=== PATIENT | female | born 1970 | race Caucasian/White ===

== ENCOUNTER 2016-10-01 14:06 | Inpatient (IN) | payer OTHER, MEDICAID ==
[2016-10-01] MEDS ORDERED: HALOPERIDOL LACT 5 MG/ML INJ IM ONE (14:13)
[2016-10-01 15:11] LABS: % IMMATURE GRANULYOCYTES 0.3 % (0.0-1.1); ABSOLUTE IMMATURE GRANULOCYTES 0.03 10^3/uL (0.00-0.10); ADD DIFF? NO; ADD MORPH? NO; ADD SCAN? NO; ATYPICAL LYMPHOCYTE FLAG 0 (0-99); FRAGMENT RBC FLAG 0 (0-99); HEMOGLOBIN 16.7 g/dL (12.6-16.3); LEFT SHIFT FLG 0 (0-99); LIPEMIA HEMOLYSIS FLAG 90 (0-99); MEAN CELL HEMOGLOBIN 31.5 pg (27.9-34.1); MEAN CELL HEMOGLOBIN CONCENTR. 34.8 g/dL (32.4-36.7); MEAN CELL VOLUME 90.6 fL (81.5-99.8); MEAN PLATELET VOLUME 10.1 fL (8.7-11.7); PLATELET CLUMPS FLAG 0 (0-99); PLATELET COUNT 243 10^3/uL (150-400); RED CELL DISTRIBUTION WIDTH 13.7 % (11.5-15.2)
[2016-10-01 15:41] LABS: ANION GAP 13 mEq/L (8-16); CALCIUM 9.8 mg/dL (8.5-10.4); CARBON DIOXIDE 19 mEq/l (22-31); CHLORIDE 104 mEq/L (97-110); CREATININE 0.7 mg/dL (0.6-1.0); ETHANOL SERUM < 10 mg/dL (0-10); GLOMERULAR FILTRATION RATE > 60; GLUCOSE 189 mg/dL (70-100); POTASSIUM 4.2 mEq/L (3.5-5.2); SODIUM 136 mEq/L (134-144)
--- NOTE | 2016-10-01 15:50 | EDPHY ---
Mental Health General Previous Psychiatric History: previous inpatient psychiatric admission, bipolar Smoking Status: Heavy smoker Time Patient Placed on M1 Hold: 13:32 Time of Transfer of Care: 18:[address] To [address]:: Yoandy Course: patient required additional meds for sedation (meds) Narrative: CHIEF COMPLAINT: M1 hold HISTORY OF PRESENT ILLNESS: 46-year-old female with history of bipolar disorder presents to the crisis Center and placed on an M1 hold brought to the emergency department. Patient has rapid tangential speech, she is rambling, reports auditory hallucinations. Patient is suspicious, angry and combative upon arrival to the emergency department. Patient denies drug or alcohol use, she is unsure if she has been taking her medications. Patient reports auditory hallucinations, she denies visual hallucinations, denies suicidal thoughts, when asked if the patient is homicidal she sat up in bed fast and said "did he say I was supposed to be?" REVIEW OF SYSTEMS: A comprehensive 10 point review of systems is otherwise negative aside from elements mentioned in the history of present illness. Physical Exam Gen: Awake, agitated HEENT: PERRL, moist mucous membranes NECK: no meningismus CV: regular rate and regular rhythm PULM: CTAB, no wheezes ABDOMEN: Obese, soft, non tender to palpation, BS present BACK: No CVA tenderness NEURO: Moves all extremities, follows commands, no facial asymmetry EXTREMITIES: normal appearing SKIN: No rash on exposed skin PSYCH: Nonsensical rapid tangential speech, suspicious, reports auditory hallucinations, denies suicidal ideations (Salma Martinez) Medical Decision Makinpm- Report passed on to Dr. Pitt at the end of my shift pending patient providing urinalysis and mental health eval. (Salma Martinez) 1800 care assumed by me from DARIEN Martinez pending mental health evaluation. 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 Patient is requiring admission. They will look for placement. [id number] patient signed out to Dr. Lazar pending placement. (Cody Pitt) 0657: No acute events overnight. Patient is pending placement. Patient signed over to Dr. Zavala at 7 AM. Patient here with gene. (Rickey Lazar) Patient has remained stable on my shift 11:45 a.m. patient has been accepted for admission at [address] [place] [address] (Darian Zavala) - Objective Vital Signs: Initial Vital Signs Temperature (C) 36.7 C 10/01/16 14:06 Heart Rate 99 10/01/16 14:06 Respiratory Rate 18 10/01/16 14:06 Blood Pressure 198/76 H 10/01/16 14:06 O2 Sat (%) 96 10/01/16 14:06 O2 Delivery Mode Room Air Allergies/Adverse Reactions: carbamazepine [From Tegretol] Allergy (Verified 10/01/16 14:16) Cephalosporins Allergy (Verified 10/01/16 14:16) clozapine [From Clozaril] Allergy (Verified 10/01/16 14:16) lamotrigine Allergy (Verified 10/01/16 14:16) oxcarbazepine [From Trileptal] Allergy (Verified 10/01/16 14:16) Penicillins Allergy (Verified 10/01/16 14:16) Sulfa (Sulfonamide Antibiotics) Allergy (Verified 10/01/16 14:16) Thiazides Allergy (Verified 10/01/16 14:16) Home Medications: Medication Instructions Recorded [place] Carbonate ER [Eskalith Cr 450 mg PO DAILY 06/17/16 450 mg (*)] Seroquel 50 mg (*) 10/01/16 Medications Given: Discontinued Medications Haloperidol Lactate (Haldol Injection) 5 mg IM EDNOW ONE Stop: 10/01/16 14:14 Last Admin: 10/01/16 14:26 Dose: 5 mg Lorazepam (Ativan) 1 mg PO EDNOW ONE Stop: 10/02/16 10:23 Last Admin: 10/02/16 10:32 Dose: 1 mg Nicotine (Nicoderm Cq) 14 mg TD EDNOW ONE Stop: 10/02/16 10:23 Last Admin: 10/02/16 11:02 Dose: 14 mg Olanzapine (Zyprexa Zydis) 5 mg PO EDNOW ONE Stop: 10/01/16 16:49 Last Admin: 10/01/16 16:54 Dose: 5 mg Olanzapine (Olanzapine) 5 mg PO ONCE ONE Stop: 10/01/16 19:53 Last Admin: 10/01/16 19:57 Dose: 5 mg Quetiapine Fumarate (Seroquel) 50 mg PO ONCE ONE Stop: 10/01/16 17:52 Last Admin: 10/01/16 19:52 Dose: 50 mg Laboratory Results: Laboratory Results 10/01/16 13:00 10/01/16 13:00 10/02/16 09:20 Urine Opiates Screen NEGATIVE (NEGATIVE) Urine Barbiturates NEGATIVE (NEGATIVE) Ur Phencyclidine Scrn NEGATIVE (NEGATIVE) Ur Amphetamine Screen NEGATIVE (NEGATIVE) U Benzodiazepines Scrn NEGATIVE (NEGATIVE) Urine Cocaine Screen NEGATIVE (NEGATIVE) U Marijuana (THC) Screen NEGATIVE (NEGATIVE) Departure - Departure Disposition: [facility] IP Clinical Impression: Acute psychosis Condition: Fair Referrals: Patient,NotPresent [Primary Care Provider] - As per Instructions
[2016-10-01 16:14] LABS: LITHIUM < 0.2 mEq/L (0.6-1.2)
[2016-10-01] MEDS ORDERED: OLANZapine DISINTEGR 5 MG TAB ONE ×2 (16:48→19:40)
[2016-10-01] MEDS ORDERED: OLANZapine DISINTEGR 5 MG TAB PO ONE (16:48)
[2016-10-01] MEDS ORDERED: QUEtiapine FUMARATE 50 MG TAB PO ONE (17:51)
[2016-10-01] MEDS ORDERED: LITHIUM CARBONATE ER 450 MG TAB PO ONE (18:04)
[2016-10-01] MEDS: LITHIUM CARBONATE ER 450 MG TAB PO SCH ×2 (18:07→18:39)
[2016-10-01] MEDS ORDERED: QUEtiapine FUMARATE 100 MG TAB ONE (19:40)
[2016-10-01] MEDS ORDERED: OLANZapine 5 MG TAB PO ONE (19:52)
[2016-10-02] MEDS: LITHIUM CARBONATE ER 450 MG TAB PO SCH (09:28)
[2016-10-02] MEDS ORDERED: NICOTINE 14 MG/24 HR PATCH TD ONE (10:22)
[2016-10-02] MEDS ORDERED: LORazepam 1 MG TAB PO ONE (10:22)
--- NOTE | 2016-10-02 20:28 | BAPA ---
[f rep st] ADMISSION PSYCHIATRIC ASSESSMENT DATE OF SERVICE: 10/02/2016 IDENTIFICATION: Patient is a 46-year-old female with a history of bipolar disorder who wa s admitted on an M1 hold secondary to gene with concerns for grave disability. CHIEF COMPLAINT: "I'm upset about my mother dying." HISTORY OF PRESENT ILLNESS: The patient reports her mother in the last week. The patient repor ts she has been taking her medications but she has not been sleeping well the last few days. She sta ye she has a lot on her mind because she is now the head of the household and she has to make arran gements for her mother's ashes which are now at the parlor and her mother wants scattered in the mountains. She states she also has to figure out what to do with the stuff in her mother's town house. She states she has some help from her son who has come up from [place], but she does not know how long he is going to be here. She reports that she called the police on her son and he loredo d the police on her because they were both arguing. Per the information in the patient's chart from [facility], the patient's son called in for a welfare check due to concerns that the pat ient was reporting some suicidal ideation. There was concern she was off her medication and presenti ng as "labile, tangential, manic, and verbally aggressive." The patient reportedly was cabbed to the walk-in clinic, but she refused to go in. She allegedly reported "it was haunted." She again to the appeared to be "tangential, labile, manic, verbally aggressive, paranoid and responded to internal stimuli." She was put on an M1 hold secondary to grave disability and transported to the [facility] Emergency Department, where she was given 5 of Haldol secondary to being "irritated , uncooperative and verbally/physically threatening." She later was given 5 of Zyprexa at 5 p.m. and another 5 of Zyprexa along with 50 mg of Seroquel at 8 p.m. Her lithium level was found to be nonde tectable at less than 0.2 even though the patient is reporting that she had been taking lithium. In the emergency department, the patient was noted to be hallucinating. REVIEW OF SYSTEMS: She appeared to be bizarre, have an elevated mood along with being irritable. Sh e appeared to be angry, hostile and suspicious. She was combative. She was shouting. She was uncoope rative. She was quite talkative and very restless. She actually threw orange juice against the wall. She was slapping at staff's hand threatening him. She appeared to be talking to people unseen. PSYCHIATRIC HISTORY: The patient has a long history of being diagnosed with bipolar disorder type 1 . She does have a history of gene with psychosis. She has also been diagnosed with panic disorder, borderline personality disorder and agoraphobia. She has been hospitalized 10 times since 2011. Her last hospitalization was at [place] from June 18 to June 23, 2016. Prior to that, she w as at [facility] from June 13 to June 15, 2016. Between 2011 and 2013, she was hospitalized at [facility]. She was on [address] [facility] at [facility]. She was at [facility], [facility], [facility] and [facility]. She also was at [facility] for several months starting in July 2013. She was first diagnosed with bipolar disorder in her early 20s. Her hospitalizations have bee n for suicidal ideation, suicide attempt, depression, gene. She has been certified to [facility] at least 3 times since 2011. She does have a history of ECT. She was stable for 2 years pr ior to being hospitalized in May 2014. SUBSTANCE ABUSE HISTORY: No urine tox screen was completed in the emergency department because she refused to give a UA. Per the information from [facility], she does have a history of ma rijuana use and she has a history of smoking cigarettes. Her marijuana use was felt not to be proble matic. It is unknown when she last she used either substance. FAMILY PSYCHIATRIC HISTORY: Unknown. SOCIAL HISTORY: She reports she was living in an apartment in [place]. Her mother was living in [facility]. She reports her mother September 24. Mother had a heart attack reportedly and was found a f ew days later. The patient reports she had a falling out with her mother prior to her mother's . She felt guilty about that. The patient had 3 sons by 3 different men. All 3 were adopted. The old est son did come up here from [place]. He was actually raised by the patient's mother. She repor ts that not only did she have the of her mother recently but her maternal aunt's also recently and her 2nd son was raised by this family. Patient does receive Social Security/Disabi lity. She reports her mother was her guardian, but she denies that she has a payee for her Social Se curity/Disability. She has never been . She reports she has very few friends. MEDICAL HISTORY: She reported to [facility] that she has neuropathy in her feet in legs and she has had some extensive dental work. ALLERGIES: She reportedly has allergies to sulfa, penicillin, Lamictal, Tegretol which caused hypon atremia, SIADH, Trileptal also cause hyponatremia and SIADH, clonazepam caused neutropenia, thiazide s and cephalosporins. LABORATORY DATA: Laboratory values showed her hemoglobin was slightly elevated at 16.7, hematocrit was slightly elevated at 48, but neither of those were concerns. She had some slight increase in the neutrophils and a decrease in lymphocyte, eosinophil percentage and basophil percentages. Her absol morongo neutrophils were elevated at 7.36. Carbon dioxide was low at 19. The glucose was elevated at 189 , however, it was not a fasting glucose. MENTAL STATUS EXAMINATION: This is a morbidly obese female who was lying in the bed on he r side. She had good eye contact. She appeared to be relaxed, somewhat sleepy. Her speech was regula r rate, rhythm and tone. Her mood describes as "I don't know. It is kind of all over the place." Her affect was blunted and thought process was linear. Thought content: She denied any thoughts of hurt ing herself or others. She denied any auditory or visual hallucinations. She was focused on the rece nt of her mother and how she was going to take care of that and how distressing that was to he r. Her insight appeared to be good. Her judgment appeared to be good. IMPRESSION: This is a 46-year-old single female with a history of bipolar disorder, type 1, most recent episode manic with psychosis who reports the recent loss of her mother approximately a week ago. The patient is grieving that loss and trying to figure out how she is going to deal with not having her mother anymore given her mother was her guardian and she has a very limited social n etwork in [place]. She does report being compliant with her medications; however, her lithium level is less than 0.2. She is only on 450 mg of extended release lithium, so normally her lithium level may be subtherapeutic, unknown given we do not have prior labs available at this time. The patient i s not presenting the way she presented in the emergency room. At this time, she actually appears to be calm and given the recent of her mother her behaviors appear to be appropriate. She is not presenting with pressured speech, agitation, mood lability, irritability or any delusional thoughts. She is agreeable to restarting her previous outpatient medications of Seroquel and lithium. She painter s not appear to be a danger to self or others at this time. DIAGNOSES: [place] I: Bipolar disorder, type 1, most recent episode manic with psychosis. [place] II: Deferred. [place] III: Neuropathy of hands and feet, per patient report; morbid obesity; allergies to sulfa, peni cillin, Lamictal, Tegretol, Trileptal, clozapine, thiazides and cephalosporins. [place] IV: Recent loss of mother. Limited social support. [place] V: GAF at this time is equal to 49. CRITERIA FOR ADMISSION: The patient does meet the criteria for admission given she presented in the community and the emergency room as manic with threatening behaviors and psychosis. The patient did need to be restarted on her medications and also given support due to recent loss of her mother. PLAN: We will restart the patient on her previous Seroquel and lithium. Given it appears she has be en off the lithium for unknown period of time, we will increase the dosage of the Seroquel to give h er some mood stabilization while she is getting re-stabilized on the lithium which will take approxi mately 5 days. We will also give her as needed Zyprexa for any breakthrough agitation or psychosis. We did go over the risks and benefits of the patient's medication. She did appear to understand. We will give the patient grief counseling as needed. /[id number]/MODL
[2016-10-02] MEDS ORDERED: QUEtiapine FUMARATE 300 MG TAB PO SCH (21:00)
[2016-10-03] MEDS: ALBUTEROL 60 PUFFS/8 GM MDI IH PRN ×2 (06:25→16:36)
[2016-10-03] MEDS ORDERED: NICOTINE POLACRILEX 2 MG GUM B ONE (06:57)
[2016-10-03] MEDS ORDERED: LEVOTHYROXINE 25 MCG TAB PO SCH (07:00)
[2016-10-03] MEDS: LITHIUM CARBONATE ER 450 MG TAB PO SCH (07:29)
[2016-10-03] MEDS: OLANZapine 5 MG TAB PO PRN ×3 (07:29→22:51)
[2016-10-03] MEDS: NICOTINE POLACRILEX 2 MG GUM B PRN ×3 (10:22→19:16)
--- NOTE | 2016-10-03 11:39 | SOAPPROG ---
SOAP Progress Note Assessment/Plan: Assessment: 46yo SCF with long hx of BMD I, most recent episode manic with psychosis, with mult past admissions, and who has been noncompliant with psychiatric meds in the setting of recent loss of her mother 1 week ago. 10/03/16 14:21 per staff, slept 8.5hr last night. Pt reports she wants to only take meds she was taking as outpatient before all this happened. Talked of losing her mother, not sure how she will deal with this , happy her son came from [place] to visit, and then lists some regrets. Did not want to t/w a hosp children's ministry director. Reports she was monitoring her own meds, and living independently, and mother was her medical POA. Also states she missed a pulmonology appt in 06/2016 and needed refill of Budesonide. Then became agitated and yelled as she recalled talking with a staff at [facility] "who never even offered any condolences!!" Then talked of feeling "detatched" and regressed with guilt feelings and "like I wanted to be a baby again" after mother . MSE: overwt, casually dressed, good eye contact, some incr psychom activity having difficulty staying seated throughout interview, initially calm and cooperative, then loud/yelling, requiring redirection, periods of responding sarcastically, irritable and annoyed, but then redirectable with reassurance and empathy, mood "I'm getting more in touch with reality, I didn't think that was possible", affect labile, thoughts generally linear although at times perseverative on recent loss, and circumferential. denied AH/VH or any SI/HI. i/j both fair. cognition conversationally intact. PLAN: Insists to only take Seroquel at 150mg HS as reports this was her previous dose. Will change from 300mg to 150mg hs but leave prns available. Cont [place] 450mg qam Cont zyprexa 5mg prn. On M1. Had been wanting to leave. May need STC until restabilized. Will check w/ [facility] if they want STC as outpt if hx of tx n/c Hospitalist to see today. Pt with hx of asthma. also obese. denies sxs of MONTSERRAT, but states her mother had MONTSERRAT. will need f/u w/pulm after d/c Objective: Vital Signs Temp Pulse Resp BP Pulse Ox 36.9 C 90 16 119/65 93 10/02/16 14:01 10/02/16 21:31 10/02/16 21:31 10/02/16 21:31 10/02/16 21:31 Medications Generic Name Dose Route Start Last Admin Trade Name Freq PRN Reason Stop Dose Admin Albuterol 2 puffs 10/02/16 19:54 10/03/16 06:25 Proventil Inhaler 03/31/17 19:53 2 puffs Q6 PRN BRONCHOSPASM Budesonide 2 puffs 10/02/16 19:53 Pulmicort 90 Mcg Flexhaler IH 03/31/17 19:52 Q6 PRN BRONCHOSPASM Celecoxib 100 mg 10/03/16 09:00 10/03/16 10:18 Celebrex PO 04/01/17 08:59 100 mg BID DONTE Estropipate 0.75 mg 10/03/16 09:00 Ogen PO 04/01/17 08:59 DAILY DONTE Levothyroxine Sodium 25 mcg 10/03/16 07:00 10/03/16 07:32 Synthroid PO 04/01/17 06:59 25 mcg DAILY06 DONTE [place] Carbonate 450 mg 10/03/16 09:00 10/03/16 07:29 Eskalith Cr PO 04/01/17 08:59 450 mg DAILY DONTE Montelukast Sodium 10 mg 10/03/16 18:00 Singulair PO 04/01/17 17:59 DAILY@1800 DONTE Nicotine Polacrilex 2 mg 10/03/16 06:56 10/03/16 10:22 Nicorette B 04/01/17 06:55 2 mg PRN PRN withdrawal Olanzapine 5 mg 10/02/16 18:18 10/03/16 07:29 Olanzapine PO 03/31/17 21:59 5 mg Q4 PRN Agitation, Psychosis Quetiapine Fumarate 300 mg 10/02/16 21:00 10/02/16 20:59 Seroquel PO 03/31/17 20:59 300 mg HS DONTE Laboratory Tests 10/01/16 10/01/16 10/01/16 13:00 13:00 13:00 WBC 9.10 Hgb 16.7 H Hct 48.0 H Plt Count 243 Sodium 136 Potassium 4.2 Chloride 104 Carbon Dioxide 19 L Anion Gap 13 BUN 10 Creatinine 0.7 Glucose 189 H Calcium 9.8 Beta HCG, Qual NEGATIVE Urine Opiates Screen Urine Barbiturates Ur Phencyclidine Scrn Ur Amphetamine Screen U Benzodiazepines Scrn [place] Urine Cocaine Screen U Marijuana (THC) Screen Ethyl Alcohol < 10 10/01/16 10/02/16 15:20 09:20 WBC Hgb Hct Plt Count Sodium Potassium Chloride Carbon Dioxide Anion Gap BUN Creatinine Glucose Calcium Beta HCG, Qual Urine Opiates Screen NEGATIVE Urine Barbiturates NEGATIVE Ur Phencyclidine Scrn NEGATIVE Ur Amphetamine Screen NEGATIVE U Benzodiazepines Scrn NEGATIVE [place] < 0.2 L Urine Cocaine Screen NEGATIVE U Marijuana (THC) Screen NEGATIVE Ethyl Alcohol - Time Spent With Patient Time Spent With Patient: 35 min - Pending Discharge Pending Discharge Within 24 Hours: No Pending Discharge Within 48 Hours: No ICD10 Worksheet Patient Problems: Problems Problem Status Onset Acute psychosis Acute Apnea Acute Psychosis Acute Shortness of breath Acute
[2016-10-03] MEDS: ESTROPIPATE 0.75 MG TAB PO SCH ×2 (13:42→14:38)
--- NOTE | 2016-10-03 15:25 | GHP ---
[f rep st] HISTORY AND PHYSICAL DATE OF ADMISSION: 10/02/2016 CHIEF COMPLAINT: Hallucinations and psychosis. HPI: This is a 46-year-old female who has a history of bipolar disorder, who was admitted through [facility] emergency department because of acute psychosis. It is noted she had a family member, her mother , within the last week. She has previously had exacerbations of her bipolar disorder and been a dmitted to this facility. On admission, she was noted to have rambling speech and auditory hallucin ations. She was suspicious, angry and combative. PAST MEDICAL HISTORY: 1. History of asthma which has been under treatment with bronchodilators. 2. Hypothyroidism, also under treatment. 3. Transient hypertension has been noted in the past, which has been secondary to Tegretol, but she has been normotensive during this hospital stay initially without treatment. 4. She has had known problems with pain in her ankles and knees, which is presumed secondary to art hritis. 5. She has a known peripheral neuropathy of unknown etiology. 6. Possible coronary artery disease, as she is noted to take Plavix. She said she was prescribed t hat over 4 years ago, but does not take it any longer. She denies having a stent placed. 7. She was noted on a previous admission to have MRI changes showing white matter abnormalities and was to have a followup with Neurology, but apparently did not. 8. The patient was admitted in 06/2016 for an episode of acute psychosis and, during that time, had acute respiratory failure. She apparently had a respiratory arrest, which was quickly corrected in the emergency department. She was also noted to have an asthma exacerbation and to have elevated L FTs at the time. PAST SURGICAL HISTORY: Noncontributory. SOCIAL HISTORY: She is homeless and sometimes, I believe, lived with her mother. She is a current smoker, FAMILY HISTORY: Noncontributory. She denies that there is history of coronary disease. There may be a history of mental health disorder in the family, although she cannot confirm that. REVIEW OF SYSTEMS: Except as noted above, most of the review of systems is negative. It is positiv e for the fact that she reports a 45 to 50-pound weight gain in the past year. She attributes this to the use of Seroquel and Tegretol and said she had significant weight gain following the hospitali zation in June. It is curious to note that she was given a large dose of steroids at that time, which may have contributed both to the acute episode of acute psychosis and to her fluid retention. Regarding the fluid retention, she denies orthopnea, PND or any chest pain. She denies cardiac sy mptomatology. There is no echocardiogram with history in the EMR. ALLERGIES: Listed as hydrocodone. PHYSICAL EXAM: GENERAL: This is a pleasant, now alert, rather talkative and somewhat rambling hist orian. VITAL SIGNS: Now are normal. HEENT: No scleral icterus. The mucous membranes are moist. Tongue and buccal mucosa are without trauma. NECK: Thyroid is not palpable, nor is it tender. No nodules can be felt. CHEST: Chest wall nontender to palpation. LUNGS: Clear to P and A, without wheezing or rales. HEART: Singular S1 and S2. There is a systolic ejection murmur at the LSB and heard well at the base. There is no significant radiation into the carotids. ABDOMEN: Obese. No rmal active bowel sounds. Benign. EXTREMITIES: 1 to 2+ peripheral edema. No palpable cords. Neg ative Homans sign. LABORATORY DATA: CBC was normal with a slight left shift of the white count. Coagulation was jamal l. Chemistry panel was normal. The liver function tests were not repeated. Toxicology negative on admission. ASSESSMENT: 1. Acute psychosis secondary to acute exacerbation of bipolar disorder. 2. Asthma by history, but currently well compensated, no signs of wheezing, and she has adequate ox ygenation. 3. Hypertension noted previously secondary to Tegretol, but currently in good control without treat ment. 4. Patient has reported weight gain of approximately 50 pounds and does exhibit peripheral edema. By history, this may have been secondary to medication and secondary to steroids. In light of her f luid excess, I will prescribe a diuretic and follow the potassium her weight status closely. Use of Plavix in the past with a history of possible coronary artery disease, although I cannot ascertain from the record or the patient whether she had a stent placed or not. She reports it was greater th an 4 years ago and is not experiencing any cardiac symptoms or chest pain. Thus, the Plavix can be stopped. PLAN: I am going to repeat the patient's CMP for her liver functions, to see if her liver functions which were abnormal in June 2016 are now normal. Thyroid panel will be ordered. We should kirsty ch her blood pressure closely. I will order a diuretic and daily weights to see if we can decrease some of the excess fluid retention. Patient has a PCP, Dr. Favio Darden, who has been following her, and she should follow up with him when she is discharged. It has been suggested in the past that she follow up with Neurology because of the changes seen on her MRI with white matter changes. This should also be done in the next 1-2 months when her psychiatric disorder is in good control. Thank you very much. I will follow along with you. /[id number]/MODL
[2016-10-03] MEDS: NICOTINE 14 MG/24 HR PATCH TD SCH (15:29)
[2016-10-03] MEDS: FUROSEMIDE 40 MG TAB PO SCH (15:59)
[2016-10-03] MEDS: BUDESONIDE 90 MCG MDI IH PRN (16:35)
[2016-10-03] MEDS: MONTELUKAST SODIUM 10 MG TAB PO SCH (18:26)
[2016-10-03] MEDS: IBUPROFEN 600 MG TAB PO PRN (18:26)
[2016-10-03] MEDS: QUEtiapine FUMARATE 50 MG TAB PO SCH (20:55)
[2016-10-04] MEDS: ALBUTEROL 60 PUFFS/8 GM MDI IH PRN ×3 (02:08→15:35)
[2016-10-04] MEDS: OLANZapine 5 MG TAB PO PRN (02:44)
[2016-10-04 03:21] LABS: ALANINE AMINOTRANSFERASE 29 IU/L (9-52); ALBUMIN 4.2 g/dL (3.5-5.0); ALKALINE PHOSPHATASE 83 IU/L (38-126); ANION GAP 12 mEq/L (8-16); ASPARTATE AMINOTRANSFERASE 38 IU/L (14-46); BILIRUBIN,TOTAL 1.2 mg/dL (0.1-1.4); CALCIUM 10.1 mg/dL (8.5-10.4); CARBON DIOXIDE 20 mEq/l (22-31); CHLORIDE 108 mEq/L (97-110); CREATININE 0.8 mg/dL (0.6-1.0); GLOMERULAR FILTRATION RATE > 60; GLUCOSE 196 mg/dL (70-100); POTASSIUM 4.5 mEq/L (3.5-5.2); SODIUM 140 mEq/L (134-144); TOTAL PROTEIN 7.3 g/dL (6.3-8.2)
[2016-10-04] MEDS: NICOTINE 14 MG/24 HR PATCH TD SCH ×2 (05:27→08:10)
[2016-10-04] MEDS: BUDESONIDE 90 MCG MDI IH PRN ×2 (08:09→20:43)
[2016-10-04] MEDS: ESTROPIPATE 0.75 MG TAB PO SCH (08:10)
[2016-10-04] MEDS: FUROSEMIDE 40 MG TAB PO SCH (08:10)
[2016-10-04] MEDS: LITHIUM CARBONATE ER 450 MG TAB PO SCH (08:10)
[2016-10-04] MEDS: NICOTINE POLACRILEX 2 MG GUM B PRN ×3 (08:55→19:29)
[2016-10-04] MEDS: LEVOTHYROXINE 25 MCG TAB PO SCH (10:22)
[2016-10-04] MEDS: MONTELUKAST SODIUM 10 MG TAB PO SCH (17:10)
[2016-10-04] MEDS: IBUPROFEN 600 MG TAB PO PRN (17:33)
--- NOTE | 2016-10-04 17:33 | SOAPPROG ---
SOAP Progress Note Assessment/Plan: Assessment: Plan: 10/04/16 17:31 Remains manic, agitated, labile and aggressive. Will CCM, await information from Dr. Terry. Will utilize E-meds for repeated aggressive bx's. Will place on STC. I discussed with her the criteria to d/c STC inc: no aggressive behaviors, stable mood and resolution of hostile/irritable outbursts, compliance with treatment. Subjective: Pt seen, discussed with staff, chart reviewed. She was initially engaging, but later was hostile. Threw breakfast tray when TV was turned off. Insists at the end of the day that she needs to be d/c'd to visit with her son. Insight remains poor. Insists on continuing low dose meds. I left message for Dr. Terry , pt's outpt psychiatrist. Objective: Vital Signs Temp Pulse Resp BP Pulse Ox 36.6 C 93 14 129/80 H 97 10/04/16 06:00 10/04/16 06:00 10/04/16 06:00 10/04/16 06:00 10/04/16 06:00 MSE: Labile, irritable, hostile. Mood is "fine." TP tangential. TC reveals paranoia, especially towards treatment staff. Verbal and physical aggression continues. - Time Spent With Patient Time Spent With Patient: 25" - Pending Discharge Pending Discharge Within 24 Hours: No Pending Discharge Within 48 Hours: No ICD10 Worksheet Patient Problems: Problems Problem Status Onset Acute psychosis Acute Apnea Acute Psychosis Acute Shortness of breath Acute
[2016-10-04] MEDS: QUEtiapine FUMARATE 50 MG TAB PO SCH (20:16)
[2016-10-05] MEDS: QUEtiapine FUMARATE 50 MG TAB PO PRN (00:17)
[2016-10-05] MEDS: IBUPROFEN 600 MG TAB PO PRN ×2 (00:24→15:51)
[2016-10-05] MEDS: QUEtiapine FUMARATE 25 MG TAB PO PRN ×3 (04:07→22:34)
[2016-10-05] MEDS: NICOTINE POLACRILEX 2 MG GUM B PRN ×6 (04:32→23:04)
[2016-10-05] MEDS: NICOTINE 14 MG/24 HR PATCH TD SCH (07:41)
[2016-10-05] MEDS: ESTROPIPATE 0.75 MG TAB PO SCH (07:41)
[2016-10-05] MEDS: LITHIUM CARBONATE ER 450 MG TAB PO SCH (07:41)
[2016-10-05] MEDS: FUROSEMIDE 40 MG TAB PO SCH (07:42)
[2016-10-05] MEDS: LEVOTHYROXINE 25 MCG TAB PO SCH (07:45)
--- NOTE | 2016-10-05 12:02 | SOAPPROG ---
SOAP Progress Note Assessment/Plan: Assessment: Plan: 10/04/16 17:31 Remains manic, agitated, labile and aggressive. Will CCM, await information from Dr. Terry. Will utilize E-meds for repeated aggressive bx's. Will place on STC. I discussed with her the criteria to d/c STC inc: no aggressive behaviors, stable mood and resolution of hostile/irritable outbursts, compliance with treatment. 10/05/16 12:01 Slow improvement. CCM. Subjective: Pt seen, discussed with staff. Reports feeling "good but bad." Up almost all night, sleeping only 1-2 hours. Mood remains labile, quite irritable at times. Objective: Vital Signs Temp Pulse Resp BP Pulse Ox 36.6 C 106 H 16 111/74 92 10/04/16 06:00 10/05/16 06:28 10/05/16 06:28 10/05/16 06:28 10/05/16 06:28 - Time Spent With Patient Time Spent With Patient: 25" - Pending Discharge Pending Discharge Within 24 Hours: No Pending Discharge Within 48 Hours: No ICD10 Worksheet Patient Problems: Problems Problem Status Onset Acute psychosis Acute Apnea Acute Psychosis Acute Shortness of breath Acute
[2016-10-05] MEDS: ALBUTEROL 60 PUFFS/8 GM MDI IH PRN (14:34)
[2016-10-05] MEDS: MONTELUKAST SODIUM 10 MG TAB PO SCH (17:00)
[2016-10-05] MEDS: QUEtiapine FUMARATE 50 MG TAB PO SCH (20:11)
[2016-10-06] MEDS: QUEtiapine FUMARATE 50 MG TAB PO PRN ×3 (00:28→23:22)
[2016-10-06] MEDS: NICOTINE POLACRILEX 2 MG GUM B PRN ×5 (00:50→21:48)
[2016-10-06] MEDS: MELATONIN 3 MG TAB PO PRN ×2 (01:20→22:02)
[2016-10-06] MEDS: ALBUTEROL 60 PUFFS/8 GM MDI IH PRN ×2 (02:25→20:13)
[2016-10-06] MEDS: IBUPROFEN 600 MG TAB PO PRN (04:18)
[2016-10-06] MEDS ORDERED: OLANZapine DISINTEGR 10 MG TAB PO ONE (06:30)
[2016-10-06] MEDS: LITHIUM CARBONATE ER 450 MG TAB PO SCH (07:28)
[2016-10-06] MEDS: ESTROPIPATE 0.75 MG TAB PO SCH (07:28)
[2016-10-06] MEDS: FUROSEMIDE 40 MG TAB PO SCH (07:28)
[2016-10-06] MEDS: LEVOTHYROXINE 25 MCG TAB PO SCH (07:29)
[2016-10-06] MEDS: QUEtiapine FUMARATE 25 MG TAB PO PRN (07:29)
[2016-10-06] MEDS: NICOTINE 14 MG/24 HR PATCH TD SCH (07:29)
--- NOTE | 2016-10-06 16:35 | SOAPPROG ---
SOAP Progress Note Assessment/Plan: Assessment: Plan: 10/04/16 17:31 Remains manic, agitated, labile and aggressive. Will CCM, await information from Dr. Terry. Will utilize E-meds for repeated aggressive bx's. Will place on STC. I discussed with her the criteria to d/c STC inc: no aggressive behaviors, stable mood and resolution of hostile/irritable outbursts, compliance with treatment. 10/05/16 12:01 Slow improvement. CCM. 10/06/16 16:35 Some regression. Will increase SQL now, consider increasing lithium. Will move level up to tomorrow. Subjective: Pt seen, discussed with staff. Agitated and aggressive overnight requiring brief seclusion due to disruptive and threatening behaviors. Animated and pressured with me today. I reinforced unit rules and behavioral expectations. She remains compliant with meds. Report from [facility] indicates that she was on only 450mg of the Eskalith and 150mg of SQL at hs. I sent an email to Dr. Terry to ask his opinion on titration of these. Objective: Vital Signs Temp Pulse Resp BP Pulse Ox 37.0 C 104 H 16 127/82 H 94 10/06/16 06:11 10/06/16 06:11 10/06/16 06:11 10/06/16 06:11 10/06/16 06:11 MSE: Agitated, pressured, irritable. Affect is labile. Mood is "bad." TP tangential. TC reveals paranoid thoughts about family and staff here acting against her. I/J remain very poor. No recognition of the severity of her illness. - Time Spent With Patient Time Spent With Patient: 25" - Pending Discharge Pending Discharge Within 24 Hours: No Pending Discharge Within 48 Hours: No ICD10 Worksheet Patient Problems: Problems Problem Status Onset Acute psychosis Acute Apnea Acute Psychosis Acute Shortness of breath Acute
[2016-10-06] MEDS: MONTELUKAST SODIUM 10 MG TAB PO SCH (16:55)
[2016-10-06] MEDS: QUEtiapine FUMARATE 50 MG TAB PO SCH (20:08)
[2016-10-06] MEDS: BUDESONIDE 90 MCG MDI IH PRN (20:12)
[2016-10-06] MEDS ORDERED: LITHIUM CARBONATE ER 450 MG TAB PO SCH (21:00)
[2016-10-07] MEDS: IBUPROFEN 600 MG TAB PO PRN ×3 (03:39→15:57)
[2016-10-07] MEDS: NICOTINE POLACRILEX 2 MG GUM B PRN ×5 (03:48→23:25)
[2016-10-07] MEDS: LITHIUM CARBONATE ER 450 MG TAB PO SCH (07:57)
[2016-10-07] MEDS: ESTROPIPATE 0.75 MG TAB PO SCH (07:57)
[2016-10-07] MEDS: QUEtiapine FUMARATE 50 MG TAB PO PRN ×3 (07:58→17:01)
[2016-10-07] MEDS: FUROSEMIDE 40 MG TAB PO SCH (07:58)
[2016-10-07] MEDS: NICOTINE 14 MG/24 HR PATCH TD SCH (07:58)
[2016-10-07] MEDS: LEVOTHYROXINE 25 MCG TAB PO SCH (08:11)
[2016-10-07 12:18] LABS: ANION GAP 9 mEq/L (8-16); CALCIUM 9.8 mg/dL (8.5-10.4); CARBON DIOXIDE 26 mEq/l (22-31); CHLORIDE 96 mEq/L (97-110); CREATININE 0.9 mg/dL (0.6-1.0); GLOMERULAR FILTRATION RATE > 60; GLUCOSE 115 mg/dL (70-100); LITHIUM 0.6 mEq/L (0.6-1.2); POTASSIUM 4.4 mEq/L (3.5-5.2); SODIUM 131 mEq/L (134-144)
--- NOTE | 2016-10-07 12:51 | SOAPPROG ---
SOAP Progress Note Assessment/Plan: Assessment: Plan: 10/04/16 17:31 Remains manic, agitated, labile and aggressive. Will CCM, await information from Dr. Terry. Will utilize E-meds for repeated aggressive bx's. Will place on STC. I discussed with her the criteria to d/c STC inc: no aggressive behaviors, stable mood and resolution of hostile/irritable outbursts, compliance with treatment. 10/05/16 12:01 Slow improvement. CCM. 10/06/16 16:35 Some regression. Will increase SQL now, consider increasing lithium. Will move level up to tomorrow. 10/07/16 12:50 Doing worse again today. Will continue to titrate Seroquel, monitor. Subjective: Pt seen, discussed with staff. Agitated, hostile, threatening to staff and myself. Did not sleep last night. Not fully cooperative with labs this morning. Very disruptive in the milieu. Objective: Vital Signs Temp Pulse Resp BP Pulse Ox 36.8 C 100 16 111/71 94 10/07/16 01:16 10/07/16 01:16 10/07/16 01:16 10/07/16 01:16 10/07/16 01:16 Laboratory Results 10/07/16 07:25 MSE: Agitated, hostile. Points finger angrily in my face and rips a piece of paper out of my hand. Speaks nonsensically about "being raped by the system." TP disorganized. TC reveals paranoid and hypersexual delusions. - Time Spent With Patient Time Spent With Patient: 15" - Pending Discharge Pending Discharge Within 24 Hours: No Pending Discharge Within 48 Hours: No ICD10 Worksheet Patient Problems: Problems Problem Status Onset Acute psychosis Acute Apnea Acute Psychosis Acute Shortness of breath Acute
[2016-10-07] MEDS: MONTELUKAST SODIUM 10 MG TAB PO SCH (17:01)
[2016-10-07] MEDS: BUDESONIDE 90 MCG MDI IH PRN (18:15)
[2016-10-07] MEDS: ALBUTEROL 60 PUFFS/8 GM MDI IH PRN (18:15)
[2016-10-07] MEDS: QUEtiapine FUMARATE 50 MG TAB PO SCH (19:16)
[2016-10-07] MEDS: MELATONIN 3 MG TAB PO PRN ×2 (19:17→20:26)
[2016-10-08] MEDS ORDERED: MELATONIN 3 MG TAB PO PRN (01:24)
[2016-10-08] MEDS: LORazepam 1 MG TAB PO PRN ×3 (01:39→19:02)
[2016-10-08] MEDS: BUDESONIDE 90 MCG MDI IH PRN ×3 (01:39→21:25)
[2016-10-08] MEDS: QUEtiapine FUMARATE 50 MG TAB PO PRN ×2 (01:41→11:33)
[2016-10-08] MEDS: NICOTINE POLACRILEX 2 MG GUM B PRN ×4 (01:45→19:05)
[2016-10-08] MEDS: ALBUTEROL 60 PUFFS/8 GM MDI IH PRN ×2 (08:09→15:23)
[2016-10-08] MEDS: ESTROPIPATE 0.75 MG TAB PO SCH (08:10)
[2016-10-08] MEDS: FUROSEMIDE 40 MG TAB PO SCH (08:10)
[2016-10-08] MEDS: LITHIUM CARBONATE ER 450 MG TAB PO SCH (08:10)
[2016-10-08] MEDS: NICOTINE 14 MG/24 HR PATCH TD SCH (08:11)
[2016-10-08] MEDS: IBUPROFEN 600 MG TAB PO PRN ×2 (09:11→16:25)
[2016-10-08] MEDS: LEVOTHYROXINE 25 MCG TAB PO SCH (09:12)
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
[2016-10-08] MEDS: MONTELUKAST SODIUM 10 MG TAB PO SCH (19:02)
[2016-10-08] MEDS ORDERED: MELATONIN 3 MG TAB PO SCH (21:00)
[2016-10-08] MEDS: QUEtiapine FUMARATE 50 MG TAB PO SCH (21:25)
[2016-10-08 22:17] LABS: COLOR YELLOW; LEUKOCYTE ESTERASE,URINE NEGATIVE (NEGATIVE); NITRITE,URINE NEGATIVE (NEGATIVE)
[2016-10-09] MEDS: IBUPROFEN 600 MG TAB PO PRN (05:12)
[2016-10-09] MEDS: NICOTINE POLACRILEX 2 MG GUM B PRN ×5 (05:13→18:01)
[2016-10-09] MEDS: ALBUTEROL 60 PUFFS/8 GM MDI IH PRN ×2 (05:20→17:22)
[2016-10-09] MEDS: BUDESONIDE 90 MCG MDI IH PRN ×2 (05:21→20:25)
[2016-10-09] MEDS: LORazepam 1 MG TAB PO PRN ×2 (06:33→14:28)
[2016-10-09] MEDS: LITHIUM CARBONATE ER 450 MG TAB PO SCH (07:59)
[2016-10-09] MEDS: NICOTINE 14 MG/24 HR PATCH TD SCH (08:00)
[2016-10-09] MEDS: ESTROPIPATE 0.75 MG TAB PO SCH (08:00)
[2016-10-09] MEDS: FUROSEMIDE 40 MG TAB PO SCH (08:00)
[2016-10-09] MEDS: LEVOTHYROXINE 25 MCG TAB PO SCH (09:58)
[2016-10-09 13:17] LABS: LITHIUM 0.7 mEq/L (0.6-1.2)
[2016-10-09 13:19] LABS: ANION GAP 12 mEq/L (8-16); CALCIUM 9.6 mg/dL (8.5-10.4); CARBON DIOXIDE 28 mEq/l (22-31); CHLORIDE 92 mEq/L (97-110); CREATININE 0.9 mg/dL (0.6-1.0); GLOMERULAR FILTRATION RATE > 60; GLUCOSE 138 mg/dL (70-100); POTASSIUM 4.1 mEq/L (3.5-5.2); SODIUM 132 mEq/L (134-144)
[2016-10-09] MEDS: QUEtiapine FUMARATE 50 MG TAB PO SCH (20:23)
[2016-10-09] MEDS: MONTELUKAST SODIUM 10 MG TAB PO SCH (20:31)
[2016-10-09] MEDS: MELATONIN 3 MG TAB PO PRN (22:17)
[2016-10-09] MEDS ORDERED: QUEtiapine FUMARATE 50 MG TAB PO PRN (23:58)
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
[2016-10-10] MEDS: LORazepam 1 MG TAB PO PRN ×2 (03:33→11:19)
[2016-10-10] MEDS: NICOTINE POLACRILEX 2 MG GUM B PRN ×2 (03:49→13:26)
[2016-10-10] MEDS: ESTROPIPATE 0.75 MG TAB PO SCH (08:36)
[2016-10-10] MEDS: LITHIUM CARBONATE ER 450 MG TAB PO SCH (08:37)
[2016-10-10] MEDS: NICOTINE 14 MG/24 HR PATCH TD SCH (08:37)
[2016-10-10] MEDS: FUROSEMIDE 40 MG TAB PO SCH (08:37)
[2016-10-10] MEDS: IBUPROFEN 600 MG TAB PO PRN (08:51)
[2016-10-10] MEDS: NYSTATIN POWDER 15 GM BTL TP SCH ×3 (11:19→20:06)
[2016-10-10] MEDS: LEVOTHYROXINE 25 MCG TAB PO SCH (11:29)
--- NOTE | 2016-10-10 14:45 | SOAPPROG ---
SOAP Progress Note Assessment/Plan: Assessment: Plan: 10/04/16 17:31 Remains manic, agitated, labile and aggressive. Will [facility], await information from Dr. Terry. Will utilize E-meds for repeated aggressive bx's. Will place on STC. I discussed with her the criteria to d/c STC inc: no aggressive behaviors, stable mood and resolution of hostile/irritable outbursts, compliance with treatment. 10/05/16 12:01 Slow improvement. CCM. 10/06/16 16:35 Some regression. Will increase SQL now, consider increasing lithium. Will move level up to tomorrow. 10/07/16 12:50 Doing worse again today. Will continue to titrate Seroquel, monitor. 10/10/16 14:44 Much improved over the weekend. Not sure if this is lasting or merely a lucid moment. Will [facility], monitor. Subjective: Pt seen, discussed with staff, chart reviewed. She remained irritable, inciting of others and delusional over the weekend per reports. She is calm and interactive iwth me today, however. She is able to sit and converse rationally and discuss her treatment appropriately. Objective: Vital Signs Temp Pulse Resp BP Pulse Ox 36.2 C 81 15 113/66 92 10/09/16 23:56 10/09/16 23:56 10/09/16 23:56 10/09/16 23:56 10/09/16 23:56 Laboratory Results 10/08/16 07:45 MSE: Calm, coop. Affect is slightly blunted, stable. Mood is "good." TP generally linear. TC reveals no overt psychosis at this time. Denies SI. - Time Spent With Patient Time Spent With Patient: 25" - Pending Discharge Pending Discharge Within 24 Hours: No Pending Discharge Within 48 Hours: No ICD10 Worksheet Patient Problems: Problems Problem Status Onset Acute psychosis Acute Apnea Acute Psychosis Acute Shortness of breath Acute
[2016-10-10] MEDS: ALBUTEROL 60 PUFFS/8 GM MDI IH PRN (15:17)
[2016-10-10] MEDS: MONTELUKAST SODIUM 10 MG TAB PO SCH (17:35)
[2016-10-10] MEDS: QUEtiapine FUMARATE 200 MG TAB PO SCH (20:05)
[2016-10-10] MEDS: BUDESONIDE 90 MCG MDI IH PRN (20:07)
[2016-10-10] MEDS ORDERED: QUEtiapine FUMARATE 200 MG TAB PO SCH (21:00)
[2016-10-11] MEDS: LORazepam 1 MG TAB PO PRN ×3 (00:20→13:23)
[2016-10-11] MEDS: NICOTINE POLACRILEX 2 MG GUM B PRN ×5 (00:21→19:23)
[2016-10-11 06:27] VITALS: RESP 16; TEMP 98.1; O2SAT 90
[2016-10-11] MEDS: NICOTINE 14 MG/24 HR PATCH TD SCH (08:01)
[2016-10-11] MEDS: LITHIUM CARBONATE ER 450 MG TAB PO SCH (08:01)
[2016-10-11] MEDS: FUROSEMIDE 40 MG TAB PO SCH (08:02)
[2016-10-11] MEDS: ESTROPIPATE 0.75 MG TAB PO SCH (08:02)
[2016-10-11] MEDS: LEVOTHYROXINE 25 MCG TAB PO SCH (08:19)
[2016-10-11] MEDS: BUDESONIDE 90 MCG MDI IH PRN ×2 (08:27→21:04)
[2016-10-11] MEDS: ALBUTEROL 60 PUFFS/8 GM MDI IH PRN ×2 (08:27→17:33)
[2016-10-11] MEDS: NYSTATIN POWDER 15 GM BTL TP SCH ×3 (13:10→23:33)
[2016-10-11] MEDS: MONTELUKAST SODIUM 10 MG TAB PO SCH (17:32)
--- NOTE | 2016-10-11 17:51 | SOAPPROG ---
SOAP Progress Note Assessment/Plan: Assessment: Plan: 10/04/16 17:31 Remains manic, agitated, labile and aggressive. Will CCM, await information from Dr. Terry. Will utilize E-meds for repeated aggressive bx's. Will place on STC. I discussed with her the criteria to d/c STC inc: no aggressive behaviors, stable mood and resolution of hostile/irritable outbursts, compliance with treatment. 10/05/16 12:01 Slow improvement. CCM. 10/06/16 16:35 Some regression. Will increase SQL now, consider increasing lithium. Will move level up to tomorrow. 10/07/16 12:50 Doing worse again today. Will continue to titrate Seroquel, monitor. 10/10/16 14:44 Much improved over the weekend. Not sure if this is lasting or merely a lucid moment. Will CCM, monitor. 10/11/16 17:50 Continued improvement. CCM. Subjective: Pt seen, discussed with staff. Reports feeling "just fine, normal." REmains much improved overall. No irritability noted, though she was very persistent and intrusive today with staff pursuing d/c. I discussed this with her and she understands that she needs f/u appointments prior to d/c. Slept 6 hours last night. Objective: Vital Signs Temp Pulse Resp BP Pulse Ox 36.7 C 78 16 112/65 90 L 10/11/16 06:00 10/11/16 06:00 10/11/16 06:00 10/11/16 06:00 10/11/16 06:00 Laboratory Results 10/08/16 07:45 MSE: Calm, coop. AFfect is bright, smiling frequently. Mood is "normal." TP linear. TC reveals no psychosis. No SI/HI/. - Time Spent With Patient Time Spent With Patient: 25" ICD10 Worksheet Patient Problems: Problems Problem Status Onset Acute psychosis Acute Apnea Acute Psychosis Acute Shortness of breath Acute
[2016-10-11] MEDS: QUEtiapine FUMARATE 200 MG TAB PO SCH (21:02)
[2016-10-12] MEDS: NICOTINE POLACRILEX 2 MG GUM B PRN (06:00)
[2016-10-12 06:20] VITALS: BP 113/56; PULSE 83
[2016-10-12] MEDS: NICOTINE 14 MG/24 HR PATCH TD SCH (08:32)
[2016-10-12] MEDS: FUROSEMIDE 40 MG TAB PO SCH (08:33)
[2016-10-12] MEDS: ESTROPIPATE 0.75 MG TAB PO SCH (08:33)
[2016-10-12] MEDS: LEVOTHYROXINE 25 MCG TAB PO SCH (08:33)
[2016-10-12] MEDS: LITHIUM CARBONATE ER 450 MG TAB PO SCH (08:33)
[2016-10-12] MEDS: NYSTATIN POWDER 15 GM BTL TP SCH (09:44)
--- NOTE | 2016-10-12 17:12 | BDS ---
[f rep st] BEHAVIORAL HEALTH DISCHARGE SUMMARY REASON FOR ADMISSION: Patient is a 46-year-old female with a history of severe bipolar di sorder who presented to the hospital acutely manic, related in large part to the recent of her mother. She reportedly had been taking medicines, but had become stressed, was not sleeping, and t his precipitated a gene. Full description of the events preceding admission can be found in her ad mission history per Dr. Chani Espinosa dated 10/02/2016. ADMITTING DIAGNOSES: Bipolar 1 disorder, most recent episode manic, severe, with psychosis, family conflicts, recent of mother. HOSPITAL COURSE: Patient was admitted to the behavioral health services inpatient unit on an M1 hol d. She was agitated, irritable, labile, hostile, and disruptive. She was also quite pressured, int rusive, and volatile. She was restarted on her previous medications, which included lithium 450 mg and Seroquel 150 mg. She refused to increase these at all, stating that these were the doses that s he always took. I was able to confirm with [facility] that, in fact, those were the dos es she typically took, and so I did continue them. Ultimately, I was able to get her to take 200 mg of Seroquel because she was continuing to sleep poorly, and this seemed to help a little bit. Over the course of her hospitalization, she did gradually stabilize with a decrease in her overall level of psychokinetic energy as well as a decrease in her hostility, irritability, volatility, and stabi lization overall of her mood. She began to request discharge, and on the day of discharge, was felt to be stable enough to return to outpatient care. CONDITION ON DISCHARGE: Stable. Her mood had been stable for approximately 48 hours, and she had s lept greater than 6 hours for the preceding 3 nights. She was compliant with her medications and ap peared to be making reasonable decisions. DISCHARGE MEDICATIONS: Seroquel 200 mg p.o. q.h.s., nystatin powder t.i.d., melatonin 3-6 mg p.o. q .h.s., Lasix 40 mg daily, albuterol inhaler 2 puffs t.i.d., Pulmicort inhaler 2 puffs b.i.d., lithiu m carbonate ER 450 mg daily, Singulair 10 mg daily, levothyroxine 25 mcg daily, Ogen 0.75 mg daily, and Celebrex 100 mg p.o. b.i.d. DISCHARGE DIAGNOSES: Bipolar 1 disorder, most recent episode manic, severe, with psychosis. Family conflicts, recent of mother. Chronic illness, marginal supports. DISPOSITION: Patient left the hospital of her own accord to return to her apartment. FOLLOWUP: Followup is with Dr. Terry and [facility] staff as scheduled. LEGAL COURSE: Patient was placed on a short-term certification at the expiration of her M1 hold. T he short-term certification was discontinued at the time of her discharge. SPECIAL INSTRUCTIONS: Patient was instructed to talk with her primary care physician about the Lasi x, and the possible need to have potassium supplementation as well as the potential interaction with lithium. This will need to be followed closely. It was started by the internists in the hospital due to her dependent edema. /[id number]/[id number]
== END 2016-10-12 12:15 | disposition home or self-care (01) | DRG 885 ==
LOC: EDUNIT# → BBEH 10-02 13:30
PROVIDERS: ADMIT Psychiatry & Neurology Psychiatry; ATTEND Psychiatry & Neurology Psychiatry
DX: F31.2 Bipolar disorder, current episode manic severe with psychotic features (principal); E66.01 Morbid (severe) obesity due to excess calories; Z68.33 Body mass index [BMI] 33.0-33.9, adult; E03.9 Hypothyroidism, unspecified; I10 Essential (primary) hypertension; G62.9 Polyneuropathy, unspecified; I25.10 Atherosclerotic heart disease of native coronary artery without angina pectoris; J45.909 Unspecified asthma, uncomplicated
CPT/HCPCS: 80305; G0480

== ENCOUNTER 2016-10-17 10:18 | Inpatient (IN) | payer OTHER, MEDICAID ==
[2016-10-17] MEDS ORDERED: LORazepam 1 MG TAB PO ONE ×2 (11:15→17:55)
--- NOTE | 2016-10-17 11:18 | EDPHY ---
H & P Stated Complaint: M-1 HOLD, [facility] CALLED X3- 24 HR. PT NOT MAKING SENSE - Personal History Current Tetanus/Diphtheria Vaccine: Unsure Current Tetanus Diphtheria and Acellular Pertussis (TDAP): Unsure - Medical/Surgical History Hx Asthma: No Hx Chronic Respiratory Disease: No Hx Diabetes: No Hx Cardiac Disease: No Hx Renal Disease: No Hx Cirrhosis: No Hx Alcoholism: No Hx HIV/AIDS: No Hx Splenectomy or Spleen Trauma: No Other PMH: Bipolar, skizophrenia. HTN. Myocardial Infarction. Fibromyalgia. Polyneuropathies. Arthritis. Agranulocytosis - Social History Smoking Status: Heavy smoker Time Seen by Provider: 10/17/16 11:06 HPI/ROS: CHIEF COMPLAINT: "I want you to touch me in certain places" HISTORY OF PRESENT ILLNESS: 46-year-old female history of bipolar disorder, arrives via police on an M1 hold for suspected acute gene/psychosis. Per police she has been calling 911 repeatedly throughout the evening with multiple complaints concerning for acute gene and psychosis. She has no complaints of physical pain or discomfort. She denies acute alcohol or drug use. Denies trauma. Denies assault. Denies suicidal or homicidal ideation. Denies hallucination. REVIEW OF SYSTEMS: A ten point review of systems was performed and is negative with the exception of the items mentioned in the HPI PAST MEDICAL & SURGICAL HISTORY: Bipolar disorder SOCIAL HISTORY: denies alcohol or drug use PHYSICAL EXAM History and exam with computer security manager at bedside at all times 1) GENERAL: Well-developed, well-nourished, alert and oriented. 2) HEAD: Normocephalic 3) HEENT: Sclera anicteric. 4) NECK: Full range of motion 5) LUNGS: breathing comfortably. 6) HEART: No cyanotic discoloration 7) ABDOMEN: No guarding 8) MUSCULOSKELETAL: No peripheral edema or discoloration or signs of trauma. 9) BACK: no visual abnormality. 10) SKIN: No rash, no laceration or acute signs of trauma 11) Psychiatric: Patient is oriented X 3, she has rapid, tangential speech, flight of ideas, hypersexual repeatedly requesting, "touch me in certain places " DIFFERENTIAL DIAGNOSIS: no particular include but limited to acute psychosis, gene, depression (Noni Cohen Mariangel) Constitutional: Initial Vital Signs Temperature (C) 36.6 C 10/17/16 10:25 Heart Rate 101 H 10/17/16 10:25 Respiratory Rate 20 10/17/16 10:25 Blood Pressure 156/108 H 10/17/16 10:25 O2 Sat (%) 94 10/17/16 10:25 O2 Delivery Mode Room Air Allergies/Adverse Reactions: carbamazepine [From Tegretol] Allergy (Verified 10/17/16 10:30) Cephalosporins Allergy (Verified 10/17/16 10:30) clozapine [From Clozaril] Allergy (Verified 10/17/16 10:30) lamotrigine Allergy (Verified 10/17/16 10:30) oxcarbazepine [From Trileptal] Allergy (Verified 10/17/16 10:30) Penicillins Allergy (Verified 10/17/16 10:30) Sulfa (Sulfonamide Antibiotics) Allergy (Verified 10/17/16 10:30) Thiazides Allergy (Verified 10/17/16 10:30) Home Medications: Medication Instructions Recorded Albuterol [Proventil Inhaler HFA 2 puffs IH TID #1 mdi 10/12/16 (*)] Budesonide 90 Mcg INH [Pulmicort 2 puffs IH BID #1 mdi 10/12/16 90 Mcg Flexhaler (*)] Estropipate [Ogen 0.75 MG (*)] 0.75 mg PO DAILY #30 tab 10/12/16 Levothyroxine [Synthroid 25 mcg 25 mcg PO DAILY06 #30 tab 10/12/16 (*)] [place] Carbonate ER [Eskalith Cr 450 mg PO DAILY #30 tab 10/12/16 450 mg (*)] Melatonin [Melatonin 3 MG (*)] 3 - 6 mg PO HS PRN #0 tab 10/12/16 Montelukast Sodium [Singulair 10 10 mg PO DAILY@1800 #30 tab 10/12/16 mg (*)] Nystatin Powder [Mycostatin Powder] 1 daron TP TID #0 powder 10/12/16 celeCOXIB [CeleBREX] 100 mg PO BID #60 cap 10/12/16 Docusate Sodium [Colace 100 MG (*)] 100 mg PO HS 10/17/16 QUEtiapine FUMARATE [Seroquel 100 150 mg PO HS 10/17/16 mg (*)] Medical Decision Making ED Course/Re-evaluation: 11:18 a.m.: Old medical records reviewed including recent hospitalization discharge within the past week or psychiatric illness 1:30 p.m.: Care turned over to Dr. Leonel Rivera at this time, awaiting mental health evaluation (Noni Cohen) Other Provider: PHYSICIAN DOCUMENTATION: The patient was evaluated and managed by the Physician Cable Ferry Operator and myself. I have reviewed the chart and agree with the findings and plan of care as documented. In addition, I examined the patient myself at 1445. History confirmed as history of bipolar disorder. Physical findings as follows: Patient has rambling and tangential speech, she tells me that "this security is keeping me at peace, the security is keeping me at peace." Responders chart reviewed in detail, the patient is clearly manic and acutely psychotic and needs to be hospitalized. At 1500 mental health evaluation has been completed and recommends the patient be continued on the M1 hold be hospitalized for psychiatric placement. Signed out to Dr. Hart at this time with inpatient placement pending. I am the secondary supervising physician. (Leonel Rivera) The patient has been accepted for inpatient psychiatric care. (Colten Hart) - Data Points Laboratory Results: Laboratory Results 10/17/16 09:38 10/17/16 09:38 10/17/16 10/17/16 10/17/16 11:40 10:38 09:38 WBC RBC Hgb Hct MCV MCH MCHC RDW Plt Count MPV Neut % (Auto) Lymph % (Auto) [place] % (Auto) Eos % (Auto) Baso % (Auto) Nucleat RBC Rel Count Absolute Neuts (auto) Absolute Lymphs (auto) Absolute Monos (auto) Absolute Eos (auto) Absolute Basos (auto) Absolute Nucleated RBC Immature Gran % Immature Gran # Sodium Potassium Chloride Carbon Dioxide Anion Gap BUN Creatinine Estimated GFR Glucose Calcium Beta HCG, Qual NEGATIVE Urine Opiates Screen NEGATIVE (NEGATIVE) Urine Barbiturates NEGATIVE (NEGATIVE) Ur Phencyclidine Scrn NEGATIVE (NEGATIVE) Ur Amphetamine Screen NEGATIVE (NEGATIVE) U Benzodiazepines Scrn NEGATIVE (NEGATIVE) [place] 0.8 mEq/L mEq/L (0.6-1.2) Urine Cocaine Screen NEGATIVE (NEGATIVE) U Marijuana (THC) Screen NEGATIVE (NEGATIVE) Ethyl Alcohol 10/17/16 10/17/16 09:38 09:38 WBC 8.99 10^3/uL 10^3/uL (3.80-9.50) RBC 5.12 10^6/uL 10^6/uL (4.18-5.33) Hgb 15.7 g/dL g/dL (12.6-16.3) Hct 45.7 % % (38.0-47.0) MCV 89.3 fL fL (81.5-99.8) MCH 30.7 pg pg (27.9-34.1) MCHC 34.4 g/dL g/dL (32.4-36.7) RDW 13.9 % % (11.5-15.2) Plt Count 251 10^3/uL 10^3/uL (150-400) MPV 9.8 fL fL (8.7-11.7) Neut % (Auto) 79.5 % H % (39.3-74.2) Lymph % (Auto) 12.2 % L % (15.0-45.0) [place] % (Auto) 4.3 % L % (4.5-13.0) Eos % (Auto) 3.3 % % (0.6-7.6) Baso % (Auto) 0.3 % % (0.3-1.7) Nucleat RBC Rel Count 0.0 % % (0.0-0.2) Absolute Neuts (auto) 7.13 10^3/uL H 10^3/uL (1.70-6.50) Absolute Lymphs (auto) 1.10 10^3/uL 10^3/uL (1.00-3.00) Absolute Monos (auto) 0.39 10^3/uL 10^3/uL (0.30-0.80) Absolute Eos (auto) 0.30 10^3/uL 10^3/uL (0.03-0.40) Absolute Basos (auto) 0.03 10^3/uL 10^3/uL (0.02-0.10) Absolute Nucleated RBC 0.00 10^3/uL 10^3/uL (0-0.01) Immature Gran % 0.4 % % (0.0-1.1) Immature Gran # 0.04 10^3/uL 10^3/uL (0.00-0.10) Sodium 138 mEq/L mEq/L (134-144) Potassium 4.6 mEq/L mEq/L (3.5-5.2) Chloride 108 mEq/L mEq/L (97-110) Carbon Dioxide 19 mEq/l L mEq/l (22-31) Anion Gap 11 mEq/L mEq/L (8-16) BUN 11 mg/dL mg/dL (7-23) Creatinine 0.8 mg/dL mg/dL (0.6-1.0) Estimated GFR > 60 Glucose 160 mg/dL H mg/dL (70-100) Calcium 9.7 mg/dL mg/dL (8.5-10.4) Beta HCG, Qual Urine Opiates Screen Urine Barbiturates Ur Phencyclidine Scrn Ur Amphetamine Screen U Benzodiazepines Scrn [place] Urine Cocaine Screen U Marijuana (THC) Screen Ethyl Alcohol < 10 mg/dL mg/dL (0-10) Medications Given: Discontinued Medications Lorazepam (Ativan) 2 mg PO EDNOW ONE Stop: 10/17/16 11:16 Last Admin: 10/17/16 11:20 Dose: 2 mg Lorazepam (Ativan) 2 mg PO EDNOW ONE Stop: 10/17/16 17:56 Last Admin: 10/17/16 18:03 Dose: 2 mg Nicotine (Nicoderm Cq) 14 mg TD EDNOW ONE Stop: 10/17/16 17:20 Last Admin: 10/17/16 17:53 Dose: 14 mg Departure - Departure Disposition: [facility] IP Clinical Impression: Bipolar disorder Qualifiers: Active/Remission status: currently active Current bipolar episode type: manic Current episode severity: severe Psychotic features: with psychotic features Qualified Code(s): F31.2 - Bipolar disorder, current episode manic severe with psychotic features Condition: Good
[2016-10-17 11:27] LABS: % IMMATURE GRANULYOCYTES 0.4 % (0.0-1.1); ABSOLUTE IMMATURE GRANULOCYTES 0.04 10^3/uL (0.00-0.10); ADD DIFF? NO; ADD MORPH? NO; ADD SCAN? NO; ATYPICAL LYMPHOCYTE FLAG 0 (0-99); FRAGMENT RBC FLAG 0 (0-99); HEMATOCRIT 45.7 % (38.0-47.0); HEMOGLOBIN 15.7 g/dL (12.6-16.3); LEFT SHIFT FLG 10 (0-99); LIPEMIA HEMOLYSIS FLAG 90 (0-99); MEAN CELL HEMOGLOBIN 30.7 pg (27.9-34.1); MEAN CELL HEMOGLOBIN CONCENTR. 34.4 g/dL (32.4-36.7); MEAN CELL VOLUME 89.3 fL (81.5-99.8); MEAN PLATELET VOLUME 9.8 fL (8.7-11.7); PLATELET CLUMPS FLAG 0 (0-99); PLATELET COUNT 251 10^3/uL (150-400); RED BLOOD CELL COUNT 5.12 10^6/uL (4.18-5.33); RED CELL DISTRIBUTION WIDTH 13.9 % (11.5-15.2)
[2016-10-17 11:37] LABS: ANION GAP 11 mEq/L (8-16); CALCIUM 9.7 mg/dL (8.5-10.4); CARBON DIOXIDE 19 mEq/l (22-31); CHLORIDE 108 mEq/L (97-110); CREATININE 0.8 mg/dL (0.6-1.0); ETHANOL SERUM < 10 mg/dL (0-10); GLOMERULAR FILTRATION RATE > 60; GLUCOSE 160 mg/dL (70-100); POTASSIUM 4.6 mEq/L (3.5-5.2); SODIUM 138 mEq/L (134-144)
[2016-10-17 14:26] LABS: LITHIUM 0.8 mEq/L (0.6-1.2)
[2016-10-17] MEDS ORDERED: NICOTINE 14 MG/24 HR PATCH TD ONE (17:19)
[2016-10-17] MEDS ORDERED: OLANZapine DISINTEGR 10 MG TAB PO PRN (20:44)
[2016-10-17] MEDS ORDERED: MAGNESIUM HYDROXIDE 30 ML UDCUP PO PRN (20:44)
[2016-10-17] MEDS ORDERED: MAG HYDROX/AL HYDROX/SIMETH 30 ML UDCUP PO PRN (20:44)
[2016-10-17] MEDS: DOCUSATE SODIUM 100 MG CAP PO SCH (21:17)
[2016-10-17] MEDS: QUEtiapine FUMARATE 100 MG TAB PO SCH (21:17)
[2016-10-17] MEDS: ALBUTEROL 60 PUFFS/8 GM MDI IH SCH (21:20)
[2016-10-17] MEDS: BUDESONIDE 90 MCG MDI IH SCH (21:23)
[2016-10-17] MEDS: NYSTATIN POWDER 15 GM BTL TP SCH (21:48)
[2016-10-18] MEDS: ALBUTEROL 60 PUFFS/8 GM MDI IH SCH ×3 (05:36→20:33)
[2016-10-18] MEDS: BUDESONIDE 90 MCG MDI IH SCH ×2 (05:37→20:33)
[2016-10-18] MEDS: ACETAMINOPHEN 325 MG TAB PO PRN ×2 (05:39→16:35)
[2016-10-18] MEDS ORDERED: LEVOTHYROXINE 25 MCG TAB PO SCH (06:00)
[2016-10-18] MEDS: NYSTATIN POWDER 15 GM BTL TP SCH ×3 (07:56→20:32)
[2016-10-18] MEDS: LITHIUM CARBONATE ER 450 MG TAB PO SCH (07:56)
[2016-10-18] MEDS: NICOTINE POLACRILEX 2 MG GUM B PRN ×2 (07:57→11:49)
[2016-10-18] MEDS: ESTROPIPATE 0.75 MG TAB PO SCH (07:57)
[2016-10-18] MEDS ORDERED: LEVOTHYROXINE 112 MCG TAB ONE (07:58)
[2016-10-18] MEDS: LEVOTHYROXINE 25 MCG TAB PO SCH (08:04)
[2016-10-18] MEDS: LORazepam 0.5 MG TAB PO PRN ×2 (11:48→19:49)
[2016-10-18] MEDS ORDERED: NICOTINE 21 MG/24 HR PATCH TD ONE (12:49)
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
[2016-10-18] MEDS: NICOTINE 14 MG/24 HR PATCH TD SCH (14:52)
[2016-10-18] MEDS: MONTELUKAST SODIUM 10 MG TAB PO SCH (17:07)
[2016-10-18] MEDS: DOCUSATE SODIUM 100 MG CAP PO SCH (20:32)
[2016-10-18] MEDS: QUEtiapine FUMARATE 100 MG TAB PO SCH (20:32)
[2016-10-19] MEDS: ACETAMINOPHEN 325 MG TAB PO PRN (06:12)
[2016-10-19] MEDS: LORazepam 0.5 MG TAB PO PRN ×3 (06:26→20:41)
[2016-10-19] MEDS: BUDESONIDE 90 MCG MDI IH SCH ×2 (06:46→20:34)
[2016-10-19] MEDS: NICOTINE 14 MG/24 HR PATCH TD SCH (07:36)
[2016-10-19] MEDS: ESTROPIPATE 0.75 MG TAB PO SCH (08:40)
[2016-10-19] MEDS: LITHIUM CARBONATE ER 450 MG TAB PO SCH (08:40)
[2016-10-19] MEDS: LEVOTHYROXINE 25 MCG TAB PO SCH (08:40)
[2016-10-19] MEDS: ALBUTEROL 60 PUFFS/8 GM MDI IH SCH ×3 (10:53→21:26)
[2016-10-19] MEDS: NYSTATIN POWDER 15 GM BTL TP SCH ×3 (13:02→21:46)
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
[2016-10-19] MEDS: NICOTINE POLACRILEX 2 MG GUM B PRN ×4 (15:05→21:26)
[2016-10-19] MEDS: MONTELUKAST SODIUM 10 MG TAB PO SCH (17:56)
[2016-10-19] MEDS: BENZTROPINE MESYLATE 1 MG TAB PO SCH (20:35)
[2016-10-19] MEDS: DOCUSATE SODIUM 100 MG CAP PO SCH (20:35)
[2016-10-19] MEDS: QUEtiapine FUMARATE 300 MG TAB PO SCH (20:35)
[2016-10-19] MEDS: UREA 40% CREAM TP SCH (20:39)
[2016-10-20] MEDS: MELATONIN 3 MG TAB PO PRN ×2 (01:12→20:52)
[2016-10-20] MEDS: LORazepam 0.5 MG TAB PO PRN ×2 (03:55→20:53)
[2016-10-20] MEDS: NICOTINE POLACRILEX 2 MG GUM B PRN ×5 (03:57→18:03)
[2016-10-20] MEDS: BUDESONIDE 90 MCG MDI IH SCH ×2 (04:37→20:33)
[2016-10-20] MEDS: ALBUTEROL 60 PUFFS/8 GM MDI IH SCH ×3 (04:37→21:49)
[2016-10-20] MEDS: ESTROPIPATE 0.75 MG TAB PO SCH (08:23)
[2016-10-20] MEDS: LITHIUM CARBONATE ER 450 MG TAB PO SCH (08:23)
[2016-10-20] MEDS: NYSTATIN POWDER 15 GM BTL TP SCH ×3 (08:24→21:50)
[2016-10-20] MEDS: NICOTINE 14 MG/24 HR PATCH TD SCH (08:24)
[2016-10-20] MEDS: LEVOTHYROXINE 25 MCG TAB PO SCH (08:26)
[2016-10-20] MEDS: UREA 40% CREAM TP SCH ×2 (10:28→21:49)
[2016-10-20] MEDS ORDERED: BENZTROPINE MESYLATE 1 MG TAB PO ONE (11:30)
[2016-10-20] MEDS: QUEtiapine FUMARATE 300 MG TAB PO SCH ×2 (11:46→20:33)
--- NOTE | 2016-10-20 12:05 | SOAPPROG ---
SOAP Progress Note Assessment/Plan: Assessment: Female with bipolar disorder with gene continues hypomanic. She does continue to struggle with the loss of her mother earlier this month. She understands she needs something to help with her hypomania, but she has a history of side effects from many medications. She described aggression on Seroquel, but with further questioning, she is actually describing EPS. She again is open to an increased dose of Seroquel with medication to counter the EPS after refusing it last night because she did not remember agreeing to 300 MG , and she denies knowing Cogentin was available. Plan: Will give a now dose of the 300 MG Seroquel and 1 MG Cogentin for EPS. Went over the risks and benefits of Cogentin. Will continue lithium. Level pending. Encourage good boundaries with peer (getting too close to a male peer at times). Will encourage showering. 10/19/16 14:03 10/19/16 14:13 10/20/16 11:58 10/20/16 12:06 Subjective: She reports she felt this global technical writer misunderstood how much Seroquel was being agreed to yesterday. She believes she was only agreeing to 200 MG. She goes on to talk about her experience at [facility] were she feels the doctor kept increasing the Seroquel against her will. She reports she doesn't remember anyone coming back to talk to her about he Cogentin last night. She does report she is willing to try the increased Seroquel, but she does fear the side effects. She reports she is working on things that she needs to get done at home including talking to her apartment management about the neighbor's complaint and trying to see if her packages got delivered. She is hoping to shower once scrubs are found that fit her. Objective: Vital Signs Temp Pulse Resp BP Pulse Ox 36.7 C 91 14 125/69 H 92 10/20/16 06:00 10/20/16 06:00 10/20/16 06:00 10/20/16 06:00 10/20/16 06:00 Obese female relaxed sitting in an office chair. Good eye contact. Speech- slightly increased rate. Mood- "Doing good." Affect- Slightly anxious. Thought Process- Goal directed. Thought Content - No SI/HI. No A/VH. No delusional statements made. - Time Spent With Patient Time Spent With Patient: 25 - Pending Discharge Pending Discharge Within 24 Hours: No Pending Discharge Within 48 Hours: No ICD10 Worksheet Patient Problems: Problems Problem Status Onset Bipolar disorder Acute Acute psychosis Acute Apnea Acute Psychosis Acute Shortness of breath Acute
[2016-10-20] MEDS: MONTELUKAST SODIUM 10 MG TAB PO SCH (18:06)
[2016-10-20] MEDS: BENZTROPINE MESYLATE 1 MG TAB PO SCH (20:27)
[2016-10-20] MEDS: DOCUSATE SODIUM 100 MG CAP PO SCH (20:27)
[2016-10-21] MEDS: ALBUTEROL 60 PUFFS/8 GM MDI IH SCH ×4 (00:32→21:59)
[2016-10-21] MEDS: NICOTINE POLACRILEX 2 MG GUM B PRN ×4 (01:53→17:42)
[2016-10-21] MEDS: BUDESONIDE 90 MCG MDI IH SCH ×2 (05:17→21:59)
[2016-10-21] MEDS: NICOTINE 14 MG/24 HR PATCH TD SCH (07:41)
[2016-10-21] MEDS: ESTROPIPATE 0.75 MG TAB PO SCH (07:42)
[2016-10-21] MEDS: LEVOTHYROXINE 25 MCG TAB PO SCH (07:42)
[2016-10-21] MEDS: LITHIUM CARBONATE ER 450 MG TAB PO SCH (07:45)
[2016-10-21] MEDS: LORazepam 0.5 MG TAB PO PRN ×2 (10:04→17:45)
--- NOTE | 2016-10-21 12:03 | SOAPPROG ---
SOAP Progress Note Assessment/Plan: Assessment: Female with bipolar disorder with gene continues hypomanic. She does continue to struggle with the loss of her mother earlier this month. She understands she needs something to help with her hypomania, but she has a history of side effects from many medications. She described aggression on Seroquel, but with further questioning, she is actually describing EPS. She again is open to an increased dose of Seroquel with medication to counter the EPS after refusing it last night because she she took 300 MG in the afternoon. She expresses a willingness to take her medications as prescribed today. Plan: Continue Seroquel and Cogentin. Will continue lithium. Level pending. Encourage good boundaries with peer (getting too close to a male peer at times). Will encourage showering. 10/19/16 14:03 10/19/16 14:13 10/20/16 11:58 10/20/16 12:06 10/21/16 11:58 Subjective: She reports she is tried today, but she believes her sleep was fine. She reports feeling dizzy after taking the 300 of Seroquel, but she did not want to lie down because not going to groups might be a strike against her. She reports being upset when she was only offered Seroquel this AM. She doesn't believe she was offered lithium. She reports at home she takes her lithium whenever she gets up, which varies, because she does not have a 9 to 5 job. She reports needing to get out by the 3rd, so she can pay her rent. Objective: Vital Signs Temp Pulse Resp BP Pulse Ox 36.9 C 77 15 119/80 93 10/21/16 06:00 10/21/16 06:00 10/21/16 06:00 10/21/16 06:00 10/21/16 06:00 Obese, female wearing a [employer] shirt, good eye contact, speech- increased rate. Mood- "Tired." Affect- Euthymic. Thought Process- Goal directed. Thought Content- No SI/HI. No AH/VH. No delusional statements made. Insight - Fair. Judgment- Poor. - Time Spent With Patient Time Spent With Patient: 25 - Pending Discharge Pending Discharge Within 24 Hours: No Pending Discharge Within 48 Hours: No ICD10 Worksheet Patient Problems: Problems Problem Status Onset Bipolar disorder Acute Acute psychosis Acute Apnea Acute Psychosis Acute Shortness of breath Acute
[2016-10-21] MEDS: QUEtiapine FUMARATE 300 MG TAB PO SCH ×3 (12:54→23:01)
[2016-10-21] MEDS: NYSTATIN POWDER 15 GM BTL TP SCH ×3 (12:54→22:00)
[2016-10-21] MEDS: UREA 40% CREAM TP SCH ×2 (12:54→22:00)
[2016-10-21] MEDS: ACETAMINOPHEN 325 MG TAB PO PRN ×2 (15:57→21:52)
[2016-10-21] MEDS: MONTELUKAST SODIUM 10 MG TAB PO SCH (17:42)
[2016-10-21] MEDS: DOCUSATE SODIUM 100 MG CAP PO SCH (21:48)
[2016-10-21] MEDS: BENZTROPINE MESYLATE 1 MG TAB PO SCH (21:48)
[2016-10-21] MEDS: MELATONIN 3 MG TAB PO PRN (21:49)
[2016-10-22] MEDS: NICOTINE POLACRILEX 2 MG GUM B PRN ×3 (06:28→20:57)
[2016-10-22] MEDS: ESTROPIPATE 0.75 MG TAB PO SCH (08:44)
[2016-10-22] MEDS: LORazepam 0.5 MG TAB PO PRN ×2 (08:45→16:48)
[2016-10-22] MEDS: NICOTINE 14 MG/24 HR PATCH TD SCH (08:46)
[2016-10-22] MEDS: ALBUTEROL 60 PUFFS/8 GM MDI IH SCH ×3 (08:48→21:01)
[2016-10-22] MEDS: BUDESONIDE 90 MCG MDI IH SCH ×2 (08:49→21:02)
[2016-10-22] MEDS: LITHIUM CARBONATE ER 450 MG TAB PO SCH (09:36)
[2016-10-22] MEDS: NYSTATIN POWDER 15 GM BTL TP SCH ×3 (09:39→21:00)
[2016-10-22] MEDS: QUEtiapine FUMARATE 300 MG TAB PO SCH ×2 (09:39→20:56)
[2016-10-22] MEDS: UREA 40% CREAM TP SCH ×2 (09:39→21:00)
[2016-10-22] MEDS: ACETAMINOPHEN 325 MG TAB PO PRN (11:44)
[2016-10-22] MEDS: LEVOTHYROXINE 25 MCG TAB PO SCH (11:45)
--- NOTE | 2016-10-22 18:01 | SOAPPROG ---
SOAP Progress Note Assessment/Plan: Assessment: Female with bipolar disorder with gene continues hypomanic. She does continue to struggle with the loss of her mother earlier this month. She understands she needs something to help with her hypomania, but she has a history of side effects from many medications. She described aggression on Seroquel, but with further questioning, she is actually describing EPS. She took Seroquel last night. She rants about her medications and being held here. SHe has limited insight into her current state. Plan: Continue Seroquel and Cogentin. D/C AM Seroquel. It was meant to be a one time dose. Will continue lithium. Level pending (hard stick). Encourage good boundaries with peer (getting too close to a male peer at times). Will encourage showering. 10/19/16 14:03 10/19/16 14:13 10/20/16 11:58 10/20/16 12:06 10/21/16 11:58 10/22/16 17:53 10/22/16 18:01 10/22/16 18:03 Subjective: SHe reports she is tired. "I'm tired of everything." "I have rent to pay, and it is stressing me out. I can't pay with a pass-code. My bank can do a transfer over the phone. It is traumatizing being here. O am not going to get better here. I'm doing the best I can, honestly! I don't want to go to court because it will take ten days to get there. What do you need to day? Even the disease case manager won't talk to me about my rent. I can get it extended to the 5th, but I don;t want to test this. I always pay on the 3rd, I need a new guardian, but it has to be someone in the state." She goes on to talk about feeling disrespected by her son's , She reports having home health care available to come into her home. She also mentions wanting to pay someone to clean her apartment for a few hours. Objective: Vital Signs Temp Pulse Resp BP Pulse Ox 37.1 C 104 H 15 129/71 H 99 10/22/16 06:00 10/22/16 06:00 10/22/16 06:00 10/22/16 06:00 10/22/16 06:00 Pressured speech. Tangential. No SI/HI/AH/VH. Poor insight. - Time Spent With Patient Time Spent With Patient: 25 - Pending Discharge Pending Discharge Within 24 Hours: No Pending Discharge Within 48 Hours: No ICD10 Worksheet Patient Problems: Problems Problem Status Onset Bipolar disorder Acute Acute psychosis Acute Apnea Acute Psychosis Acute Shortness of breath Acute
[2016-10-22] MEDS: MONTELUKAST SODIUM 10 MG TAB PO SCH (18:24)
[2016-10-22] MEDS: BENZTROPINE MESYLATE 1 MG TAB PO SCH (20:56)
[2016-10-22] MEDS: DOCUSATE SODIUM 100 MG CAP PO SCH (20:57)
[2016-10-22] MEDS: MELATONIN 3 MG TAB PO PRN (20:57)
[2016-10-23] MEDS: ACETAMINOPHEN 325 MG TAB PO PRN (03:27)
[2016-10-23] MEDS: NICOTINE POLACRILEX 2 MG GUM B PRN ×2 (03:27→21:45)
[2016-10-23] MEDS: LITHIUM CARBONATE ER 450 MG TAB PO SCH (07:55)
[2016-10-23] MEDS: LORazepam 0.5 MG TAB PO PRN ×2 (07:55→13:55)
[2016-10-23] MEDS: ALBUTEROL 60 PUFFS/8 GM MDI IH SCH ×3 (07:58→20:09)
[2016-10-23] MEDS: NICOTINE 14 MG/24 HR PATCH TD SCH (07:59)
[2016-10-23] MEDS: ESTROPIPATE 0.75 MG TAB PO SCH (07:59)
[2016-10-23] MEDS: BUDESONIDE 90 MCG MDI IH SCH ×2 (07:59→20:08)
[2016-10-23] MEDS: NYSTATIN POWDER 15 GM BTL TP SCH ×3 (08:00→21:46)
[2016-10-23] MEDS: UREA 40% CREAM TP SCH ×2 (08:01→21:46)
[2016-10-23] MEDS: LEVOTHYROXINE 25 MCG TAB PO SCH (10:00)
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
[2016-10-23] MEDS: MONTELUKAST SODIUM 10 MG TAB PO SCH (18:05)
[2016-10-23] MEDS: DOCUSATE SODIUM 100 MG CAP PO SCH (20:06)
[2016-10-23] MEDS: QUEtiapine FUMARATE 300 MG TAB PO SCH (20:07)
[2016-10-23] MEDS: BENZTROPINE MESYLATE 1 MG TAB PO SCH (20:07)
[2016-10-24] MEDS: MELATONIN 3 MG TAB PO PRN ×2 (03:57→16:54)
[2016-10-24] MEDS: ACETAMINOPHEN 325 MG TAB PO PRN ×2 (03:59→19:54)
[2016-10-24] MEDS: NICOTINE POLACRILEX 2 MG GUM B PRN ×6 (03:59→19:54)
[2016-10-24] MEDS: BUDESONIDE 90 MCG MDI IH SCH ×3 (04:07→22:28)
[2016-10-24] MEDS: ALBUTEROL 60 PUFFS/8 GM MDI IH SCH ×4 (04:08→23:40)
[2016-10-24] MEDS: LORazepam 0.5 MG TAB PO PRN (05:57)
[2016-10-24] MEDS: NICOTINE 14 MG/24 HR PATCH TD SCH (07:37)
[2016-10-24] MEDS: LITHIUM CARBONATE ER 450 MG TAB PO SCH (07:39)
[2016-10-24] MEDS: ESTROPIPATE 0.75 MG TAB PO SCH (07:40)
[2016-10-24] MEDS: LEVOTHYROXINE 25 MCG TAB PO SCH (10:30)
[2016-10-24] MEDS: NYSTATIN POWDER 15 GM BTL TP SCH ×2 (10:35→22:30)
[2016-10-24] MEDS: UREA 40% CREAM TP SCH ×2 (11:26→22:40)
--- NOTE | 2016-10-24 14:54 | SOAPPROG ---
SOAP Progress Note Assessment/Plan: Assessment: Plan: 10/24/16 14:55 Remains manic and psychotic. Will [facility], monitor. Subjective: Pt seen, discussed with staff, chart reviewed. She accosts me immediately on my entering the unit. States she is "sick of this shit hole" and wants to leave. She is labile with angry, happy and tearful affects. She perseverates on need to leave the hospital, stating, "It's this place that makes me sick." Unable to accept that she had trouble as an outpatient leading to readmission despite general med compliance. Repeatedly states 300mg of Seroquel is too much for her and that Dr. Espinosa is going to lose her license for prescribing it. I told her I wanted her to continued on the current dose. She requested AG which I granted and then went out with group. She was reportedly non- compliant with staff directions and stopped "every ten feet." Staff asked that these be terminated. Objective: Vital Signs Temp Pulse Resp BP Pulse Ox 36.8 C 85 16 123/67 H 96 10/24/16 02:50 10/24/16 02:50 10/24/16 02:50 10/24/16 02:50 10/24/16 02:50 MSE: Moderately agitated, hostile at first. Later more cooperative. Affect is labile, irritable. Mood is "fine." TP disorganized. TC reveals paranoid and grandiose thoughts. - Time Spent With Patient Time Spent With Patient: 25" - Pending Discharge Pending Discharge Within 24 Hours: No Pending Discharge Within 48 Hours: No ICD10 Worksheet Patient Problems: Problems Problem Status Onset Bipolar disorder Acute Acute psychosis Acute Apnea Acute Psychosis Acute Shortness of breath Acute
[2016-10-24] MEDS: BENZTROPINE MESYLATE 1 MG TAB PO SCH (19:54)
[2016-10-24] MEDS: DOCUSATE SODIUM 100 MG CAP PO SCH (19:54)
[2016-10-24] MEDS: QUEtiapine FUMARATE 300 MG TAB PO SCH (20:54)
[2016-10-24] MEDS: MONTELUKAST SODIUM 10 MG TAB PO SCH (22:29)
[2016-10-25] MEDS: LORazepam 0.5 MG TAB PO PRN ×2 (02:38→09:12)
[2016-10-25] MEDS: NICOTINE POLACRILEX 2 MG GUM B PRN ×4 (02:57→13:27)
[2016-10-25] MEDS: ACETAMINOPHEN 325 MG TAB PO PRN (06:50)
[2016-10-25] MEDS: NICOTINE 14 MG/24 HR PATCH TD SCH (08:00)
[2016-10-25] MEDS: LITHIUM CARBONATE ER 450 MG TAB PO SCH (08:05)
[2016-10-25] MEDS: ESTROPIPATE 0.75 MG TAB PO SCH (08:05)
[2016-10-25] MEDS: BUDESONIDE 90 MCG MDI IH SCH ×2 (09:10→20:06)
[2016-10-25] MEDS: ALBUTEROL 60 PUFFS/8 GM MDI IH SCH ×3 (09:10→20:05)
[2016-10-25] MEDS: LEVOTHYROXINE 25 MCG TAB PO SCH (11:30)
[2016-10-25] MEDS: UREA 40% CREAM TP SCH ×2 (11:31→21:15)
[2016-10-25] MEDS: NYSTATIN POWDER 15 GM BTL TP SCH ×3 (11:31→20:07)
[2016-10-25] MEDS: MELATONIN 3 MG TAB PO PRN (16:02)
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
[2016-10-25] MEDS: DOCUSATE SODIUM 100 MG CAP PO SCH (19:49)
[2016-10-25] MEDS: BENZTROPINE MESYLATE 1 MG TAB PO SCH (19:49)
[2016-10-25] MEDS: MONTELUKAST SODIUM 10 MG TAB PO SCH (19:50)
[2016-10-25] MEDS: QUEtiapine FUMARATE 300 MG TAB PO SCH (21:37)
[2016-10-26] MEDS: ALBUTEROL 60 PUFFS/8 GM MDI IH SCH ×3 (04:28→20:28)
[2016-10-26] MEDS: LORazepam 0.5 MG TAB PO PRN ×3 (05:59→21:30)
[2016-10-26] MEDS: LITHIUM CARBONATE ER 450 MG TAB PO SCH (08:42)
[2016-10-26] MEDS: LEVOTHYROXINE 25 MCG TAB PO SCH (08:43)
[2016-10-26] MEDS: NICOTINE 14 MG/24 HR PATCH TD SCH ×2 (08:43→18:44)
[2016-10-26] MEDS: ESTROPIPATE 0.75 MG TAB PO SCH (08:43)
[2016-10-26] MEDS: NICOTINE POLACRILEX 2 MG GUM B PRN ×2 (11:12→16:35)
[2016-10-26] MEDS: BUDESONIDE 90 MCG MDI IH SCH ×2 (13:50→20:28)
[2016-10-26] MEDS: NYSTATIN POWDER 15 GM BTL TP SCH ×3 (13:51→22:50)
[2016-10-26] MEDS: UREA 40% CREAM TP SCH ×2 (13:51→15:58)
[2016-10-26] MEDS: MELATONIN 3 MG TAB PO PRN (18:23)
[2016-10-26] MEDS: MONTELUKAST SODIUM 10 MG TAB PO SCH (18:29)
[2016-10-26] MEDS: QUEtiapine FUMARATE 100 MG TAB PO SCH (18:29)
--- NOTE | 2016-10-26 18:34 | SOAPPROG ---
SOAP Progress Note Assessment/Plan: Assessment: Plan: 10/24/16 14:55 Remains manic and psychotic. Will [facility], monitor. 10/25/16 17:18 Little improvement. CCM. 10/26/16 18:34 Improved over yesterday. CCM. Subjective: Pt seen, discussed with staff. Less agitated initially but escalates with RN, swearing at her after she was asked to rock picker towels in her room. She is able to sit with me for more than twenty minutes and rationally discuss her care. She is accepting of the 300mg dose of Seroquel and of having to stay long enought to completely stabilize so she doesn't bounce right back. Objective: Vital Signs Temp Pulse Resp BP Pulse Ox 36.8 C 85 16 123/67 H 96 10/24/16 02:50 10/24/16 02:50 10/24/16 02:50 10/24/16 02:50 10/24/16 02:50 - Time Spent With Patient Time Spent With Patient: 25" - Pending Discharge Pending Discharge Within 24 Hours: No Pending Discharge Within 48 Hours: No ICD10 Worksheet Patient Problems: Problems Problem Status Onset Bipolar disorder Acute Acute psychosis Acute Apnea Acute Psychosis Acute Shortness of breath Acute
[2016-10-26] MEDS: DOCUSATE SODIUM 100 MG CAP PO SCH (20:27)
[2016-10-26] MEDS: BENZTROPINE MESYLATE 1 MG TAB PO SCH (20:27)
[2016-10-26] MEDS: QUEtiapine FUMARATE 200 MG TAB PO SCH (20:27)
[2016-10-27] MEDS: NICOTINE POLACRILEX 2 MG GUM B PRN ×3 (04:22→14:10)
[2016-10-27] MEDS: ALBUTEROL 60 PUFFS/8 GM MDI IH SCH ×3 (07:36→21:11)
[2016-10-27] MEDS: LITHIUM CARBONATE ER 450 MG TAB PO SCH (07:36)
[2016-10-27] MEDS: BUDESONIDE 90 MCG MDI IH SCH ×2 (07:36→21:11)
[2016-10-27] MEDS: NICOTINE 14 MG/24 HR PATCH TD SCH (07:37)
[2016-10-27] MEDS: ESTROPIPATE 0.75 MG TAB PO SCH (07:37)
[2016-10-27] MEDS: NYSTATIN POWDER 15 GM BTL TP SCH ×4 (07:41→21:12)
[2016-10-27] MEDS: LEVOTHYROXINE 25 MCG TAB PO SCH (10:57)
[2016-10-27] MEDS: LORazepam 0.5 MG TAB PO PRN (10:57)
[2016-10-27] MEDS: UREA 40% CREAM TP SCH ×2 (14:13→21:11)
[2016-10-27] MEDS: MONTELUKAST SODIUM 10 MG TAB PO SCH (17:42)
[2016-10-27] MEDS: QUEtiapine FUMARATE 100 MG TAB PO SCH (17:42)
[2016-10-27] MEDS: BENZTROPINE MESYLATE 1 MG TAB PO SCH (21:11)
[2016-10-27] MEDS: QUEtiapine FUMARATE 200 MG TAB PO SCH (21:11)
[2016-10-27] MEDS: DOCUSATE SODIUM 100 MG CAP PO SCH (21:11)
[2016-10-28] MEDS: ALBUTEROL 60 PUFFS/8 GM MDI IH SCH ×3 (05:41→22:20)
[2016-10-28] MEDS: LORazepam 0.5 MG TAB PO PRN ×4 (05:41→23:15)
[2016-10-28] MEDS: BUDESONIDE 90 MCG MDI IH SCH ×2 (05:43→22:20)
[2016-10-28] MEDS: LITHIUM CARBONATE ER 450 MG TAB PO SCH (08:38)
[2016-10-28] MEDS: ESTROPIPATE 0.75 MG TAB PO SCH (08:38)
[2016-10-28] MEDS: LEVOTHYROXINE 25 MCG TAB PO SCH (08:39)
[2016-10-28] MEDS: NICOTINE 14 MG/24 HR PATCH TD SCH (08:39)
[2016-10-28] MEDS: NICOTINE POLACRILEX 2 MG GUM B PRN ×3 (15:13→22:57)
[2016-10-28] MEDS: NYSTATIN POWDER 15 GM BTL TP SCH ×3 (15:14→22:19)
[2016-10-28] MEDS: UREA 40% CREAM TP SCH ×2 (15:14→22:20)
--- NOTE | 2016-10-28 16:44 | SOAPPROG ---
SOAP Progress Note Assessment/Plan: Assessment: Plan: 10/27/16 DAY ' UPDATE: Nursing reports pat 24 hrs pt has evidenced variable syndromal instability - lability of affect, abusive language, intrusive behaviors intermixed with periods of affective stability/ generally compliant with cares/ med with directive support and limits; pt is known unstable Bipolar Disorder who was rapidly readmitted after initial DC in < 7 days again decompensated with mixed manic/psychotic acuity in stress context of mother's recent . Per Dr Ball's sign-off pt is now taking her maintenance meds regimen and is expected to clear current mental status instability during her inpt stay; she will not likely agree with any increases in her current medication regimen by previous known course history. ON EXAM: presents with moderate POS, lability, decreased attention/concentration , tangential thought process; does organize partly with reintegrative inputs from me in th session. ASSESSMENT/PLAN: residual affective-psychotic acuity/ continue current meds and reintegrative CP d/w Nursing Objective: Vital Signs Temp Pulse Resp BP Pulse Ox 36.6 C 94 14 134/72 H 93 10/27/16 04:36 10/28/16 06:00 10/28/16 06:00 10/28/16 06:00 10/28/16 06:00 ICD10 Worksheet Patient Problems: Problems Problem Status Onset Bipolar disorder Acute Acute psychosis Acute Apnea Acute Psychosis Acute Shortness of breath Acute
--- NOTE | 2016-10-28 17:21 | SOAPPROG ---
SOAP Progress Note Assessment/Plan: Assessment: Plan: 10/27/16 DAY UPDATE: Nursing reports pat 24 hrs pt has evidenced variable syndromal instability - lability of affect, abusive language, intrusive behaviors intermixed with periods of affective stability/ generally compliant with cares/ med with directive support and limits; pt is known unstable Bipolar Disorder who was rapidly readmitted after initial DC in < 7 days again decompensated with mixed manic/psychotic acuity in stress context of mother's recent . Per Dr Ball's sign-off pt is now taking her maintenance meds regimen and is expected to clear current mental status instability during her inpt stay; she will not likely agree with any increases in her current medication regimen by previous known course history. ON EXAM: presents with moderate POS, lability, decreased attention/concentration , tangential thought process; does organize partly with reintegrative inputs from me in th session. ASSESSMENT/PLAN: residual affective-psychotic acuity/ continue current meds and reintegrative CP d/w Nursing 10/28/16 1531 DAY UPDATE: Nursing reports pt continues to evidence instability c/w residual manic/ psychotic acuity c/w slow-paced progress; verbal abusiveness and intrusiveness prominently still problematic and requiring frequent limits ON EXAM: presents with residual signs/sx: POS, distractible, tangential thinking variable lability; resistant to meds changes as expected and did not persist with this focus; reports resistance to obtaining a [place] level and says this tried before without success; less tolerant of contact today and eventually dismisses me and leaves ASSESSMENT/PLAN: residual instability as referenced in previous note/ no meds or management changes; will monitor mental status for predicted restabilization Objective: Vital Signs Temp Pulse Resp BP Pulse Ox 36.6 C 94 14 134/72 H 93 10/27/16 04:36 10/28/16 06:00 10/28/16 06:00 10/28/16 06:00 10/28/16 06:00 ICD10 Worksheet Patient Problems: Problems Problem Status Onset Bipolar disorder Acute Acute psychosis Acute Apnea Acute Psychosis Acute Shortness of breath Acute
[2016-10-28] MEDS: QUEtiapine FUMARATE 100 MG TAB PO SCH (17:40)
[2016-10-28] MEDS: MONTELUKAST SODIUM 10 MG TAB PO SCH (17:40)
[2016-10-28] MEDS: QUEtiapine FUMARATE 200 MG TAB PO SCH (22:20)
[2016-10-28] MEDS: DOCUSATE SODIUM 100 MG CAP PO SCH (22:20)
[2016-10-28] MEDS: BENZTROPINE MESYLATE 1 MG TAB PO SCH (22:20)
[2016-10-28] MEDS: ACETAMINOPHEN 325 MG TAB PO PRN (23:45)
[2016-10-29] MEDS: ALBUTEROL 60 PUFFS/8 GM MDI IH SCH ×5 (05:15→23:40)
[2016-10-29] MEDS: BUDESONIDE 90 MCG MDI IH SCH ×2 (05:16→20:07)
[2016-10-29] MEDS: NYSTATIN POWDER 15 GM BTL TP SCH ×4 (05:23→20:05)
[2016-10-29] MEDS: ESTROPIPATE 0.75 MG TAB PO SCH (05:23)
[2016-10-29] MEDS: UREA 40% CREAM TP SCH ×3 (05:24→20:05)
[2016-10-29] MEDS: NICOTINE POLACRILEX 2 MG GUM B PRN ×3 (07:39→20:04)
[2016-10-29] MEDS: NICOTINE 14 MG/24 HR PATCH TD SCH (07:40)
[2016-10-29] MEDS: LITHIUM CARBONATE ER 450 MG TAB PO SCH (07:41)
[2016-10-29] MEDS: LEVOTHYROXINE 25 MCG TAB PO SCH (09:45)
[2016-10-29] MEDS: LORazepam 0.5 MG TAB PO PRN (10:54)
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
[2016-10-29] MEDS: MONTELUKAST SODIUM 10 MG TAB PO SCH (16:53)
[2016-10-29] MEDS: QUEtiapine FUMARATE 100 MG TAB PO SCH (16:53)
[2016-10-29] MEDS: DOCUSATE SODIUM 100 MG CAP PO SCH (20:04)
[2016-10-29] MEDS: BENZTROPINE MESYLATE 1 MG TAB PO SCH (20:04)
[2016-10-29] MEDS: QUEtiapine FUMARATE 200 MG TAB PO SCH (20:05)
[2016-10-30] MEDS: NICOTINE POLACRILEX 2 MG GUM B PRN ×3 (01:50→21:03)
[2016-10-30] MEDS: LORazepam 0.5 MG TAB PO PRN ×3 (01:50→21:03)
[2016-10-30] MEDS: MELATONIN 3 MG TAB PO PRN (01:50)
[2016-10-30] MEDS: BUDESONIDE 90 MCG MDI IH SCH ×3 (02:13→20:20)
[2016-10-30] MEDS: NICOTINE 14 MG/24 HR PATCH TD SCH (07:56)
[2016-10-30] MEDS: ESTROPIPATE 0.75 MG TAB PO SCH (08:32)
[2016-10-30] MEDS: NYSTATIN POWDER 15 GM BTL TP SCH ×3 (08:32→21:27)
[2016-10-30] MEDS: LITHIUM CARBONATE ER 450 MG TAB PO SCH (08:32)
[2016-10-30] MEDS: UREA 40% CREAM TP SCH ×2 (08:42→21:27)
[2016-10-30] MEDS: ALBUTEROL 60 PUFFS/8 GM MDI IH SCH ×3 (08:42→21:04)
[2016-10-30] MEDS: LEVOTHYROXINE 25 MCG TAB PO SCH (10:05)
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
[2016-10-30] MEDS: QUEtiapine FUMARATE 50 MG TAB PO PRN (15:22)
[2016-10-30] MEDS: MONTELUKAST SODIUM 10 MG TAB PO SCH (17:06)
[2016-10-30] MEDS: QUEtiapine FUMARATE 200 MG TAB PO SCH (20:19)
[2016-10-30] MEDS: DOCUSATE SODIUM 100 MG CAP PO SCH (20:19)
[2016-10-31] MEDS: NICOTINE POLACRILEX 2 MG GUM B PRN ×2 (02:20→16:44)
[2016-10-31] MEDS: ALBUTEROL 60 PUFFS/8 GM MDI IH SCH ×4 (02:21→20:40)
[2016-10-31] MEDS: BUDESONIDE 90 MCG MDI IH SCH ×2 (06:04→20:41)
[2016-10-31] MEDS: LITHIUM CARBONATE ER 450 MG TAB PO SCH (07:40)
[2016-10-31] MEDS: NICOTINE 14 MG/24 HR PATCH TD SCH (07:41)
[2016-10-31] MEDS: ESTROPIPATE 0.75 MG TAB PO SCH (07:41)
[2016-10-31] MEDS: LEVOTHYROXINE 25 MCG TAB PO SCH (08:06)
[2016-10-31] MEDS: UREA 40% CREAM TP SCH ×2 (08:46→21:41)
[2016-10-31] MEDS: NYSTATIN POWDER 15 GM BTL TP SCH ×4 (08:46→21:40)
[2016-10-31] MEDS: LORazepam 0.5 MG TAB PO PRN ×2 (09:00→17:30)
[2016-10-31 15:25] LABS: HEMOGLOBIN A1C 6.3 % (4.0-6.0)
[2016-10-31 15:34] LABS: LITHIUM 0.7 mEq/L (0.6-1.2)
[2016-10-31 15:38] LABS: ALANINE AMINOTRANSFERASE 43 IU/L (9-52); ALBUMIN 3.9 g/dL (3.5-5.0); ALKALINE PHOSPHATASE 101 IU/L (38-126); ANION GAP 11 mEq/L (8-16); ASPARTATE AMINOTRANSFERASE 29 IU/L (14-46); BILIRUBIN,TOTAL 0.6 mg/dL (0.1-1.4); CALCIUM 9.1 mg/dL (8.5-10.4); CARBON DIOXIDE 23 mEq/l (22-31); CHLORIDE 103 mEq/L (97-110); CREATININE 0.7 mg/dL (0.6-1.0); GLOMERULAR FILTRATION RATE > 60; GLUCOSE 121 mg/dL (70-100); POTASSIUM 4.7 mEq/L (3.5-5.2); SODIUM 137 mEq/L (134-144); TOTAL PROTEIN 6.8 g/dL (6.3-8.2)
[2016-10-31] MEDS: MONTELUKAST SODIUM 10 MG TAB PO SCH (17:32)
--- NOTE | 2016-10-31 19:01 | SOAPPROG ---
SOAP Progress Note Assessment/Plan: Assessment: Plan: 10/24/16 14:55 Remains manic and psychotic. Will [facility], monitor. 10/25/16 17:18 Little improvement. CCM. 10/26/16 18:34 Improved over yesterday. CCM. 10/31/16 19:02 Approaching level appropriate for d/c. WIll [facility], coordinate with [facility]. Subjective: Pt seen, discussed with staff, chart reviewed. Remains activated, expansive, irritable. Continues to demand discharge. Disrespectful and hostile towards staff, but more reasonable with doctors. She requests again with me to be d/c' d immediately to home. I told her we need a reasonable and safe plan - including relapse prevention. Compliant with meds. Objective: Vital Signs Temp Pulse Resp BP Pulse Ox 36.9 C 94 16 121/72 H 92 10/31/16 06:00 10/31/16 06:00 10/31/16 06:00 10/31/16 06:00 10/31/16 06:00 Laboratory Results 10/31/16 11:35 MSE: Slightly pressured, though generally cooperative and pleasant. Affect is expansive, though mostly smiling. Mood is "terrible in this place." TP wandering, circumstantial, though able to give reasonably goal-directed answers to questions. TC reveals no psychosis. No SI/HI/. - Time Spent With Patient Time Spent With Patient: 25" ICD10 Worksheet Patient Problems: Problems Problem Status Onset Bipolar disorder Acute Acute psychosis Acute Apnea Acute Psychosis Acute Shortness of breath Acute
[2016-10-31] MEDS: QUEtiapine FUMARATE 50 MG TAB PO PRN (19:10)
[2016-10-31] MEDS: QUEtiapine FUMARATE 200 MG TAB PO SCH (20:41)
[2016-10-31] MEDS: DOCUSATE SODIUM 100 MG CAP PO SCH (20:41)
[2016-11-01] MEDS: LORazepam 0.5 MG TAB PO PRN ×3 (02:39→23:31)
[2016-11-01] MEDS: ACETAMINOPHEN 325 MG TAB PO PRN ×3 (02:39→20:03)
[2016-11-01 06:10] VITALS: O2SAT 93
[2016-11-01] MEDS: ESTROPIPATE 0.75 MG TAB PO SCH (08:11)
[2016-11-01] MEDS: LITHIUM CARBONATE ER 450 MG TAB PO SCH (08:11)
[2016-11-01] MEDS: LEVOTHYROXINE 25 MCG TAB PO SCH (08:12)
[2016-11-01] MEDS: NICOTINE POLACRILEX 2 MG GUM B PRN ×3 (08:23→20:57)
[2016-11-01] MEDS: NYSTATIN POWDER 15 GM BTL TP SCH ×3 (09:04→20:58)
[2016-11-01] MEDS: NICOTINE 14 MG/24 HR PATCH TD SCH (11:01)
[2016-11-01] MEDS: UREA 40% CREAM TP SCH ×2 (14:16→20:58)
[2016-11-01] MEDS: ALBUTEROL 60 PUFFS/8 GM MDI IH SCH ×5 (14:16→22:23)
[2016-11-01] MEDS: BUDESONIDE 90 MCG MDI IH SCH ×2 (14:16→20:57)
--- NOTE | 2016-11-01 14:49 | SOAPPROG ---
SOAP Progress Note Assessment/Plan: Assessment: Plan: 10/24/16 14:55 Remains manic and psychotic. Will [facility], monitor. 10/25/16 17:18 Little improvement. CCM. 10/26/16 18:34 Improved over yesterday. CCM. 10/31/16 19:02 Approaching level appropriate for d/c. WIll [facility], coordinate with [facility]. 11/01/16 14:47 Remains irritable, but this appears to be baseline. Will [facility]. Likely d/c tomorrow if all is well. Subjective: Pt seen, discussed with staff. Remains pressured about d/c. Hostile when I tell her it is scheduled for tomorrow. Otherwise remains in reasonable behavioral control. Slept nine hours last night. Objective: Vital Signs Temp Pulse Resp BP Pulse Ox 36.4 C 93 16 117/77 93 11/01/16 06:00 11/01/16 06:00 11/01/16 06:00 11/01/16 06:00 11/01/16 06:00 Laboratory Results 10/31/16 11:35 MSE: Initially cooperative, then angry. Affect is o/w stable. Mood is "bad, I want to go home." TP generally linear. TC reveals no psychosis. Denies SI/ HI/. - Time Spent With Patient Time Spent With Patient: 15" ICD10 Worksheet Patient Problems: Problems Problem Status Onset Bipolar disorder Acute Acute psychosis Acute Apnea Acute Psychosis Acute Shortness of breath Acute
[2016-11-01] MEDS: MONTELUKAST SODIUM 10 MG TAB PO SCH (17:29)
[2016-11-01] MEDS: QUEtiapine FUMARATE 50 MG TAB PO PRN (17:30)
[2016-11-01] MEDS ORDERED: CEPACOL LOZENGE PO ONE (20:00)
[2016-11-01] MEDS: MELATONIN 3 MG TAB PO PRN (20:03)
[2016-11-01] MEDS: QUEtiapine FUMARATE 200 MG TAB PO SCH (20:57)
[2016-11-01] MEDS: DOCUSATE SODIUM 100 MG CAP PO SCH (20:57)
[2016-11-02 04:54] VITALS: BP 122/86; PULSE 84; RESP 14; TEMP 97.6
[2016-11-02] MEDS: ALBUTEROL 60 PUFFS/8 GM MDI IH SCH (05:10)
[2016-11-02] MEDS: NICOTINE POLACRILEX 2 MG GUM B PRN ×3 (05:10→08:44)
[2016-11-02] MEDS: LITHIUM CARBONATE ER 450 MG TAB PO SCH (08:43)
[2016-11-02] MEDS: ESTROPIPATE 0.75 MG TAB PO SCH (08:44)
[2016-11-02] MEDS: LEVOTHYROXINE 25 MCG TAB PO SCH (08:45)
--- NOTE | 2016-11-02 14:37 | BDS ---
[f rep st] BEHAVIORAL HEALTH DISCHARGE SUMMARY REASON FOR ADMISSION: Patient is a 46-year-old female, known to us from previous hospital izations, who was admitted after having been brought in by police. She had been calling 911, statin g that she believes her home was haunted and requesting that they send people to investigate. She h ad not been sleeping, was agitated and paranoid. She was placed on an M1 hold and admitted for furt her evaluation. A full description of the events preceding admission can be found in Dr. Espinosa's admission note of 10/19/2016. ADMITTING DIAGNOSES: 1. Bipolar 1 disorder, most recent episode manic, severe, with psychosis. 2. Chronic illness, marginal supports, recent of mother, and family conflicts. ADMITTING PHYSICAL EXAMINATION: Not performed. ADMISSION LABORATORY: CBC was normal. Serum chemistries showed a nonfasting glucose of 160. Repea t on 10/31 showed glucose of 121 and hemoglobin A1c elevated at 6.3. Beta hCG was negative. Liver function was normal. Urinalysis showed no evidence of infection. Lit hium was 0.8, and alcohol was less than detectable. Urine drug screen showed no substances of abuse . HOSPITAL COURSE: Patient was admitted to the behavioral health services inpatient unit on an M1 hol d. She was elevated, pressured, irritable, though generally cooperative. She did have periods of s udden hostility toward staff over relatively small things and was intolerant of other patients who m ight be exhibiting manic or psychotic symptoms. This led to frequent conflicts in the milieu, thoug h no actual aggression. She did not require seclusion or restraint. We continued her previous medi cations, including lithium and Seroquel, at her previous doses per her insistence. It appeared, bas ed on her serum levels, that these symptoms emerged during the course of her treatment with edy calvin. For this reason, we did increase the Seroquel to 300 mg, though this was as high as she would a llow us to go. Patient's hospital course was uncomplicated other than the frequent conflicts. She gradually improv ed, and her sleep stabilized; by the time of discharge, she was sleeping more than 6 hours per night . Her lithium level was rechecked and was 0.7 on 10/31/2016. The patient began to insist to leave the hospital, and the case was discussed with her outpatient providers at [facility]. As she stabilized and approached discharge, she was considered for and rejected at both [facility] and [facility]. Patient was then ultimately discharged back to her home, which was her choic ann. She has followup appointments with her outpatient provider, Dr. Terry, and I spoke with him abou t the case during her hospitalization, as well. CONDITION AT DISCHARGE: Stable. She was voicing no thoughts of suicide. Her mood was stable. Her sleep was stable, and she was having no paranoia or other psychotic symptoms. DISCHARGE MEDICATIONS: Nystatin powder as needed, melatonin 3-6 mg at h.s., Singulair 10 mg daily a t 1800, albuterol inhaler as needed, Pulmicort inhaler 2 puffs b.i.d., Celebrex 100 mg b.i.d., [place] e 100 mg h.s., Ogen 0.75 mg daily, Synthroid 25 mcg daily, urea cream applied topically b.i.d., Sero quel 200 mg at bedtime and 50 mg b.i.d., and lithium carbonate ER 450 mg h.s. DISCHARGE DIAGNOSES: 1. Bipolar type 1 disorder, most recent episode manic, severe, with psychosis. 2. Chronic illness. 3. Recent of her mother. 4. Marginal supports. 5. Family conflicts. DISPOSITION: Patient left the hospital in a cab to return to her apartment in [place]. FOLLOWUP: Patient is to follow up with Dr. Addy Terry at [facility] on 11/14/2016. LEGAL COURSE: Patient was placed on a short-term certification at the expiration of her M1 hold. S hort-term certification was discontinued at the time of her discharge. /[id number]/MODL
== END 2016-11-02 10:50 | disposition home or self-care (01) | DRG 885 ==
LOC: EDUNIT# → BBEH 18:55
PROVIDERS: ADMIT Psychiatry & Neurology Psychiatry; ATTEND Psychiatry & Neurology Psychiatry
DX: F31.2 Bipolar disorder, current episode manic severe with psychotic features (principal); F20.9 Schizophrenia, unspecified; I10 Essential (primary) hypertension; G62.9 Polyneuropathy, unspecified
CPT/HCPCS: 80305; G0480

== ENCOUNTER 2016-12-05 14:50 | Emergency (ER) | payer MEDICAID ==
[2016-12-05 15:06] VITALS: TEMP 98.4
[2016-12-05] MEDS ORDERED: IPRATROPIUM/ALBUTEROL 3 ML DEYVIAL ONE (15:23)
[2016-12-05] MEDS ORDERED: IBUPROFEN 600 MG TAB PO ONE (15:27)
[2016-12-05] MEDS ORDERED: IPRATROPIUM/ALBUTEROL 3 ML DEYVIAL IH ONE (15:27)
[2016-12-05] MEDS ORDERED: methylPREDNISolone SOD SUCC 125 MG/2 ML VIAL IVP ONE (15:40)
[2016-12-05] MEDS ORDERED: methylPREDNISolone SOD SUCC 125 MG/2 ML VIAL ONE ×2 (15:41)
--- NOTE | 2016-12-05 15:44 | EDPHY ---
H & P Time Seen by Provider: 12/05/16 15:24 HPI/ROS: CHIEF COMPLAINT: Shortness of breath HISTORY OF PRESENT ILLNESS: Patient is a 46-year-old female with a history of tobacco use, schizophrenia and asthma who presents to the emergency department with increasing shortness of breath. The patient states that she was diagnosed with pneumonia in June of this year. She states she was in the hospital for week. She has since seen her doctor. He told her she does not have COPD. Since discharge she has been doing well. However, over the past week she has had increasing shortness of breath and cough. Her cough is nonproductive. She denies chest pain. No leg pain or swelling. She has ongoing peripheral neuropathy which is unchanged. She states her symptoms feel similar to asthma. REVIEW OF SYSTEMS: My complete review of systems is negative except as mentioned in the HPI. Past Medical/Surgical History: Includes asthma, bipolar, schizophrenia, hypertension, ACS, acute CA, fibromyalgia, arthritis, agranulocytosis, peripheral neuropathy Social history: The patient smokes. She states she has cut back. Smoking Status: Heavy smoker Physical Exam: Vitals noted. 36.9, 126/70, 70, 18, 90% on room air. The patient was placed on 2 L nasal cannula O2 saturation was 97%. GENERAL: Well-appearing, in no acute distress, alert. HEENT: Eyes normal to inspection, normal pharynx, no signs of dehydration. NECK: No thyromegaly, no lymphadenopathy, supple. RESPIRATORY: diffuse scattered wheezing. No rales or rhonchi. No accessory muscle use. CVS: Regular rate and rhythm, no rubs, murmurs, or gallops. ABDOMEN: Obese. Soft, nontender, nondistended, no organomegaly. BACK: Normal to inspection, no CVA tenderness. SKIN: Normal color, no rash, warm, dry. No pallor. EXTREMITIES: Minimal bilateral pedal edema, no pitting, no calf tenderness, no Homans sign or cords, no joint swelling. NEURO/PSYCH: Alert and oriented, flat affect, normal motor sensory exam. Constitutional: Initial Vital Signs Temperature (C) 36.9 C 12/05/16 15:04 Heart Rate 78 12/05/16 15:04 Respiratory Rate 18 12/05/16 15:04 Blood Pressure 126/78 H 12/05/16 15:04 O2 Sat (%) 90 L 12/05/16 15:04 O2 Delivery Mode Room Air Allergies/Adverse Reactions: carbamazepine [From Tegretol] Allergy (Verified 10/17/16 10:30) Cephalosporins Allergy (Verified 10/17/16 10:30) clozapine [From Clozaril] Allergy (Verified 10/17/16 10:30) lamotrigine Allergy (Verified 10/17/16 10:30) oxcarbazepine [From Trileptal] Allergy (Verified 10/17/16 10:30) Penicillins Allergy (Verified 10/17/16 10:30) Sulfa (Sulfonamide Antibiotics) Allergy (Verified 10/17/16 10:30) Thiazides Allergy (Verified 10/17/16 10:30) Home Medications: Medication Instructions Recorded Melatonin [Melatonin 3 MG (*)] 3 - 6 mg PO HS PRN #0 tab 10/12/16 Montelukast Sodium [Singulair 10 10 mg PO DAILY@1800 #30 tab 10/12/16 mg (*)] Nystatin Powder [Mycostatin Powder] 1 daron TP TID #0 powder 10/12/16 Albuterol [Proventil Inhaler HFA 2 puffs IH TID #0 mdi 11/02/16 (*)] Budesonide 90 Mcg INH [Pulmicort 2 puffs IH BID #0 mdi 11/02/16 90 Mcg Flexhaler (*)] Docusate Sodium [Colace 100 MG (*)] 100 mg PO HS #0 cap 11/02/16 Estropipate [Ogen 0.75 MG (*)] 0.75 mg PO DAILY #0 tab 11/02/16 Levothyroxine [Synthroid 25 mcg 25 mcg PO DAILY@1000 #0 tab 11/02/16 (*)] [place] Carbonate ER [Eskalith Cr 450 mg PO DAILY #30 tab 11/02/16 450 mg (*)] QUEtiapine FUMARATE [Seroquel 200 200 mg PO DAILY@21 #30 tab 11/02/16 mg (*)] QUEtiapine FUMARATE [Seroquel 50 50 mg PO Q4 PRN #30 tab 11/02/16 mg (*)] Urea 40% [Urea Cream (*)] 1 daron TP BID #0 cream 11/02/16 celeCOXIB [CeleBREX] 100 mg PO BID #0 cap 11/02/16 Azithromycin 250 mg PO DAILY #4 tablet 12/05/16 predniSONE 20 mg PO DAILY 3 Days 12/05/16 Medical Decision Making - Diagnostics EKG Interpretation: Sinus rhythm at 73. Left anterior fascicular block. Flipped T-waves in I, aVL. Mild ST elevation in V1 V2. Mild ST depression in V5 and V6. This was compared with previous EKG. It is unchanged from June. Imaging Results: Imaging Impressions Chest X-Ray 12/05/16 15:40 Impression: Mild airways disease and minimal left basilar atelectasis. ED Course/Re-evaluation: In the emergency department I discussed possible etiologies with the patient. I answered all her questions. She was given a DuoNeb from triage. She had completed the DuoNeb prior to my evaluation. The patient was given Solu-Medrol 125 mg IV for her wheezing. Laboratory studies, EKG and chest x-ray were ordered. Rechecked the patient on numerous occasions while here. She was stable. She was able to ambulate without difficulty. Chest x-ray: Please refer the dictated report. There is no focal infiltrate or pneumonia. Patient was noted to have a mildly low sodium 129. I compared this with previous values. She does have numerous sodium levels range from 130-131. Patient's BNP was elevated 100. I compared this with previous levels. It has been highly elevated previously. There is no signs of failure chest x-ray. I discussed the results with the patient. I answered all her questions. I requested the patient go back to the [facility]. She agreed. She will be given the 1st dose of azithromycin here and given a prescription to take home. This will cover for COPD exacerbation/bronchitis. She has inhalers at [facility]. Patient was given warnings prior to leaving. She will return with worsening symptoms Differential Diagnosis: My differential includes but is not limited to asthma, reactive airway disease, bronchitis, pneumonia, pulmonary embolus, COPD, CHF - Data Points Laboratory Results: Laboratory Results 12/05/16 14:58 12/05/16 14:58 12/05/16 12/05/16 14:58 14:58 WBC 7.99 10^3/uL 10^3/uL (3.80-9.50) RBC 5.07 10^6/uL 10^6/uL (4.18-5.33) Hgb 15.4 g/dL g/dL (12.6-16.3) Hct 45.1 % % (38.0-47.0) MCV 89.0 fL fL (81.5-99.8) MCH 30.4 pg pg (27.9-34.1) MCHC 34.1 g/dL g/dL (32.4-36.7) RDW 13.2 % % (11.5-15.2) Plt Count 251 10^3/uL 10^3/uL (150-400) MPV 10.3 fL fL (8.7-11.7) Neut % (Auto) 77.8 % H % (39.3-74.2) Lymph % (Auto) 11.6 % L % (15.0-45.0) [place] % (Auto) 7.9 % % (4.5-13.0) Eos % (Auto) 1.9 % % (0.6-7.6) Baso % (Auto) 0.4 % % (0.3-1.7) Nucleat RBC Rel Count 0.0 % % (0.0-0.2) Absolute Neuts (auto) 6.22 10^3/uL 10^3/uL (1.70-6.50) Absolute Lymphs (auto) 0.93 10^3/uL L 10^3/uL (1.00-3.00) Absolute Monos (auto) 0.63 10^3/uL 10^3/uL (0.30-0.80) Absolute Eos (auto) 0.15 10^3/uL 10^3/uL (0.03-0.40) Absolute Basos (auto) 0.03 10^3/uL 10^3/uL (0.02-0.10) Absolute Nucleated RBC 0.00 10^3/uL 10^3/uL (0-0.01) Immature Gran % 0.4 % % (0.0-1.1) Immature Gran # 0.03 10^3/uL 10^3/uL (0.00-0.10) Sodium 129 mEq/L L mEq/L (134-144) Potassium 4.6 mEq/L mEq/L (3.5-5.2) Chloride 94 mEq/L L mEq/L (97-110) Carbon Dioxide 28 mEq/l mEq/l (22-31) Anion Gap 7 mEq/L L mEq/L (8-16) BUN 17 mg/dL mg/dL (7-23) Creatinine 0.9 mg/dL mg/dL (0.6-1.0) Estimated GFR > 60 Glucose 175 mg/dL H mg/dL (70-100) Calcium 9.2 mg/dL mg/dL (8.5-10.4) Troponin I 0.024 ng/mL ng/mL (0-0.034) NT-Pro-B Natriuret Pep 813 pg/mL H pg/mL (0-125) Medications Given: Discontinued Medications Albuterol/Ipratropium (Duoneb) 3 ml IH EDNOW ONE Stop: 12/05/16 15:28 Last Admin: 12/05/16 15:28 Dose: 3 ml Ibuprofen (Motrin) 600 mg PO EDNOW ONE Stop: 12/05/16 15:28 Last Admin: 12/05/16 15:29 Dose: 600 mg Methylprednisolone Sodium Succinate (Solu-Medrol) 125 mg IVP EDNOW ONE Stop: 12/05/16 15:41 Last Admin: 12/05/16 15:44 Dose: 125 mg Departure - Departure Disposition: Home, Routine, Self-Care Clinical Impression: Shortness of breath, Bronchitis Reactive airway disease Qualifiers: Asthma severity: mild intermittent Asthma complication type: with acute exacerbation Qualified Code(s): J45.21 - Mild intermittent asthma with (acute) exacerbation Condition: Good Instructions: Acute Bronchitis (ED) Additional Instructions: Take your medications as directed. Return with increasing chest pain, shortness of breath, fever or any other concerns. Referrals: Favio Darden, DO [Primary Care Provider] - 1-2 days without fail Prescriptions: Azithromycin 250 mg PO DAILY #4 tablet predniSONE 20 mg PO DAILY 3 Days
[2016-12-05 15:45] LABS: % IMMATURE GRANULYOCYTES 0.4 % (0.0-1.1); ABSOLUTE IMMATURE GRANULOCYTES 0.03 10^3/uL (0.00-0.10); ADD DIFF? NO; ADD MORPH? NO; ADD SCAN? NO; ATYPICAL LYMPHOCYTE FLAG 0 (0-99); FRAGMENT RBC FLAG 0 (0-99); HEMATOCRIT 45.1 % (38.0-47.0); HEMOGLOBIN 15.4 g/dL (12.6-16.3); LEFT SHIFT FLG 10 (0-99); LIPEMIA HEMOLYSIS FLAG 90 (0-99); MEAN CELL HEMOGLOBIN 30.4 pg (27.9-34.1); MEAN CELL HEMOGLOBIN CONCENTR. 34.1 g/dL (32.4-36.7); MEAN PLATELET VOLUME 10.3 fL (8.7-11.7); PLATELET CLUMPS FLAG 30 (0-99); PLATELET COUNT 251 10^3/uL (150-400); RED BLOOD CELL COUNT 5.07 10^6/uL (4.18-5.33); RED CELL DISTRIBUTION WIDTH 13.2 % (11.5-15.2)
[2016-12-05 15:59] LABS: ANION GAP 7 mEq/L (8-16); CALCIUM 9.2 mg/dL (8.5-10.4); CARBON DIOXIDE 28 mEq/l (22-31); CHLORIDE 94 mEq/L (97-110); CREATININE 0.9 mg/dL (0.6-1.0); GLOMERULAR FILTRATION RATE > 60; GLUCOSE 175 mg/dL (70-100); POTASSIUM 4.6 mEq/L (3.5-5.2); SODIUM 129 mEq/L (134-144)
[2016-12-05 16:12] LABS: TROPONIN I 0.024 ng/mL (0-0.034)
--- NOTE | 2016-12-05 16:14 | CPEKG ---
Heart Rate: 73 RR Interval: 822 P-R Interval: 168 QRSD Interval: 102 QT Interval: 428 QTC Interval: 472 P [place]: 55 QRS [place]: -52 T Wave [place]: 129 EKG Severity - ABNORMAL ECG - EKG Impression: SINUS RHYTHM EKG Impression: LEFT ANTERIOR FASCICULAR BLOCK EKG Impression: LVH WITH SECONDARY REPOLARIZATION ABNORMALITY EKG Impression: ABNORMAL T, PROBABLE ISCHEMIA, LATERAL LEADS Electronically Signed By: Lauren Rhodes 05-Dec-2016 22:46:27
[2016-12-05] MEDS ORDERED: AZITHROMYCIN 250 MG TAB PO ONE (17:03)
[2016-12-05 17:30] VITALS: BP 118/78; PULSE 70; RESP 14; O2SAT 94
== END 2016-12-05 17:28 | disposition home or self-care (01) ==
LOC: EDUNIT#
DX: J45.21 Mild intermittent asthma with (acute) exacerbation (principal); I10 Essential (primary) hypertension; F17.200 Nicotine dependence, unspecified, uncomplicated; J20.9 Acute bronchitis, unspecified
CPT/HCPCS: 96374

== ENCOUNTER 2017-01-26 14:13 | Emergency (ER) | payer MEDICAID ==
[2017-01-26] MEDS ORDERED: NITROGLYCERIN 2% 1 GM PACKET TP ONE (14:28)
--- NOTE | 2017-01-26 14:35 | EDPHY ---
H & P - Medical/Surgical History Hx Asthma: No Hx Chronic Respiratory Disease: No Hx Diabetes: No Hx Cardiac Disease: No Hx Renal Disease: No Hx Cirrhosis: No Hx Alcoholism: No Hx HIV/AIDS: No Hx Splenectomy or Spleen Trauma: No Other PMH: Bipolar, skizophrenia. HTN. Myocardial Infarction. Fibromyalgia. Polyneuropathies. Arthritis. Agranulocytosis - Social History Smoking Status: Heavy smoker Time Seen by Provider: 01/26/17 14:27 Constitutional: Initial Vital Signs Temperature (C) 37.3 C 01/26/17 14:15 Heart Rate 77 01/26/17 14:15 Respiratory Rate 22 H 01/26/17 14:15 Blood Pressure 136/95 H 01/26/17 14:15 O2 Sat (%) 86 L 01/26/17 14:15 O2 Delivery Mode Nasal Cannula O2 (L/minute) 2 Allergies/Adverse Reactions: carbamazepine [From Tegretol] Allergy (Verified 01/26/17 14:32) cefaclor [From Ceclor] Allergy (Verified 01/26/17 14:39) Cephalosporins Allergy (Verified 01/26/17 14:32) clozapine [From Clozaril] Allergy (Verified 01/26/17 14:32) lamotrigine Allergy (Verified 01/26/17 14:32) oxcarbazepine [From Trileptal] Allergy (Verified 01/26/17 14:32) Penicillins Allergy (Verified 01/26/17 14:32) Sulfa (Sulfonamide Antibiotics) Allergy (Verified 01/26/17 14:32) Thiazides Allergy (Verified 01/26/17 14:32) Home Medications: Medication Instructions Recorded Albuterol [Proventil Inhaler HFA 2 puffs IH TID #0 mdi 11/02/16 (*)] Docusate Sodium [Colace 100 MG (*)] 100 mg PO HS #0 cap 11/02/16 Estropipate [Ogen 0.75 MG (*)] 0.75 mg PO DAILY #0 tab 11/02/16 Levothyroxine [Synthroid 25 mcg 25 mcg PO DAILY@1000 #0 tab 11/02/16 (*)] [place] Carbonate ER [Eskalith Cr 450 mg PO DAILY #30 tab 11/02/16 450 mg (*)] QUEtiapine FUMARATE [Seroquel 200 200 mg PO DAILY@21 #30 tab 11/02/16 mg (*)] QUEtiapine FUMARATE [Seroquel 50 50 mg PO Q4 PRN #30 tab 11/02/16 mg (*)] celeCOXIB [CeleBREX] 100 mg PO BID #0 cap 11/02/16 Advair 250/50 (*) 01/26/17 Buspar (*) 01/26/17 INVEGA 01/26/17 Klonopin 01/26/17 Metoprolol Tartrate 01/26/17 Trazodone HCl 01/26/17 Ventolin Hfa Inhaler 01/26/17 Medical Decision Making - Diagnostics Imaging Results: Imaging Impressions Chest X-Ray 01/26/17 14:30 Impression: 1. COPD/airways disease. 2. Cardiomegaly without failure. ED Course/Re-evaluation: CHIEF COMPLAINT: Shortness of breath HISTORY OF PRESENT ILLNESS: 46-year-old female who was just sent over from her doctor's office. She has room air oxygenation in the high 80s. She has been feeling more shortness of breath for approximately 2 weeks. She was admitted to a hospital in [place] although she is unclear which hospital about 2 weeks ago. Her sodium was low and they took her off her Lasix. There has been no substitution of any diuretics and consequently she has now developed paroxysmal nocturnal dyspnea in addition to peripheral edema and shortness of breath both at rest and exertion only. She feels like her hands and feet or ankles and legs are significantly swollen compared to usual. She denies any fevers or chills or infectious type process. She denies cough. She denies any chest pain or chest pressure. She has been using her inhalers which is both a steroid inhaler and a long-acting albuterol for her chronic reactive airways disease. She states the inhaler stone help at all and she does not believe this is her usual asthma or COPD exacerbation. REVIEW OF SYSTEMS: A 10 point review of systems was performed and is negative with the exception of the elements mentioned in the history of present illness. PHYSICAL EXAM: HR, BP, O2 Sat, RR. Temp noted General Appearance: Alert, well hydrated, appropriate, and non-toxic appearing. Head: Atraumatic without scalp tenderness or obvious injury Eyes: Pupils equal, round, reactive to light and accommodation, EOMI, no trauma , no injection. Ears: Clear bilaterally, no perforation, normal landmarks Nose: Atraumatic, no rhinorrhea, clear. Throat: There is no erythema or exudates, no lesions, normal tonsils, mucus membranes moist. Neck: Supple, 2+ carotid upstroke, nontender, no lymphadenopathy. Respiratory: Rales assisted up bilateral bases. No retractions, no distress, no wheezes, and no accessory muscle use Cardiovascular: Regular rate and rhythm, no murmurs, rubs, or gallops. Bilateral carotid, radial, dorsalis pedis, and posterior tibial pulses intact. Good capillary refill all extremities. Gastrointestinal: Abdomen is soft, nontender, non-distended, no masses, no rebound, no guarding, no peritoneal signs. Musculoskeletal: Normal active ROM of all extremities, atraumatic. Neurological: Alert, appropriate, and interactive. The patient has normal DTRs and non-focal cranial nerves, motor, sensory, and cerebellar exam. Skin: No rashes, good turgor, no nodules on palpation. Past medical history: COPD, hypertension, CHF, psychiatric history of bipolar disorder Past surgical history: Noncontributory Family history: Noncontributory Social history: Single, does not abuse tobacco drugs or alcohol, not employed DIAGNOSTICS/PROCEDURES/CRITICAL CARE TIME: The 12 lead EKG was interpreted by myself. See hard copy and/or "tracemaster" electronic copy for interpretation. The EKG shows normal sinus mechanism with a few PACs. Additionally she has some lateral ST depression and abnormal T- waves which seemed to be similar to prior EKGs specifically from December 05 of this year Study: PA and Lateral Chest X-ray Indication: shortness of breath Results: After viewing the images myself on the PACS system. My interpretation of the images is: This x-ray will be turned over to Dr. Pepper change of shift for interpretation DIFFERENTIAL DIAGNOSIS: The differential diagnosis for the patient's shortness of breath and hypoxemia included but was not limited to pneumonia, myocardial infarction, acute mountain sickness, high altitude pulmonary edema, congestive heart failure, and pulmonary embolus. MEDICAL DECISION MAKING: This patient is in no distress however she only has oxygen saturation of 84-85% on room air at rest. When she is talking a lot more walking she drops her sats even further. She is not usually O2 dependent. She was at her primary physician's office they measure saturations on several occasions and I sent her here. This patient was taken off her Lasix 2 weeks ago. She has paroxysmal nocturnal dyspnea and peripheral edema. I am suspecting that she is having a CHF exacerbation causing her hypoxemia. Laboratory studies, EKG, chest x-ray pending. This patient is requesting to be admitted to [facility]. This patient will be signed out to Dr. Milton at shift change in she can make arrangements to transfer the patient once all the data has returned. ([facility]) Care Turn Over: Care turned over at 3pm, Pt with CHF by BNP and symptomatolgy. Arranged for admit to [facility], discussed with hospitalist Dr Serrano Pt given Aspirin 325 mg po here, duoneb and nicorette gum. Nitropast removed when BP 100/55. Pt pain free at all times, no chest pain. Awaiting bed assignment at [facility], then we will arrange transport for admit. ( Ingrid Milton) - Data Points Laboratory Results: Laboratory Results 01/26/17 14:27 01/26/17 14:27 01/26/17 01/26/17 01/26/17 14:27 14:27 14:27 WBC 8.44 10^3/uL 10^3/uL (3.80-9.50) RBC 4.75 10^6/uL 10^6/uL (4.18-5.33) Hgb 14.4 g/dL g/dL (12.6-16.3) Hct 43.9 % % (38.0-47.0) MCV 92.4 fL fL (81.5-99.8) MCH 30.3 pg pg (27.9-34.1) MCHC 32.8 g/dL g/dL (32.4-36.7) RDW 15.3 % H % (11.5-15.2) Plt Count 201 10^3/uL 10^3/uL (150-400) MPV 9.3 fL fL (8.7-11.7) Neut % (Auto) 76.4 % H % (39.3-74.2) Lymph % (Auto) 13.3 % L % (15.0-45.0) [place] % (Auto) 7.2 % % (4.5-13.0) Eos % (Auto) 2.3 % % (0.6-7.6) Baso % (Auto) 0.4 % % (0.3-1.7) Nucleat RBC Rel Count 0.0 % % (0.0-0.2) Absolute Neuts (auto) 6.46 10^3/uL 10^3/uL (1.70-6.50) Absolute Lymphs (auto) 1.12 10^3/uL 10^3/uL (1.00-3.00) Absolute Monos (auto) 0.61 10^3/uL 10^3/uL (0.30-0.80) Absolute Eos (auto) 0.19 10^3/uL 10^3/uL (0.03-0.40) Absolute Basos (auto) 0.03 10^3/uL 10^3/uL (0.02-0.10) Absolute Nucleated RBC 0.00 10^3/uL 10^3/uL (0-0.01) Immature Gran % 0.4 % % (0.0-1.1) Immature Gran # 0.03 10^3/uL 10^3/uL (0.00-0.10) PT 12.4 SEC SEC (12.0-15.0) INR 0.95 (0.83-1.16) APTT 25.2 SEC SEC (23.0-38.0) Sodium 137 mEq/L mEq/L (134-144) Potassium 4.9 mEq/L mEq/L (3.5-5.2) Chloride 101 mEq/L mEq/L (97-110) Carbon Dioxide 27 mEq/l mEq/l (22-31) Anion Gap 9 mEq/L mEq/L (8-16) BUN 13 mg/dL mg/dL (7-23) Creatinine 0.9 mg/dL mg/dL (0.6-1.0) Estimated GFR > 60 Glucose 124 mg/dL H mg/dL (70-100) Calcium 9.3 mg/dL mg/dL (8.5-10.4) Magnesium 1.9 mg/dL mg/dL (1.6-2.3) Troponin I 0.153 ng/mL H ng/mL (0-0.034) NT-Pro-B Natriuret Pep 3390 pg/mL H pg/mL (0-125) Medications Given: Discontinued Medications Albuterol/Ipratropium (Duoneb) 3 ml IH EDNOW ONE Stop: 01/26/17 15:30 Last Admin: 01/26/17 15:35 Dose: 3 ml Aspirin Buffered (Aspirin Ec) 325 mg PO EDNOW ONE Stop: 01/26/17 15:14 Last Admin: 01/26/17 15:15 Dose: 325 mg Furosemide (Lasix Injection) 20 mg IVP EDNOW ONE Stop: 01/26/17 14:54 Last Admin: 01/26/17 15:08 Dose: 20 mg Nitroglycerin (Nitro-Bid 2%) 1 inch TP EDNOW ONE Stop: 01/26/17 14:29 Last Admin: 01/26/17 14:45 Dose: 1 inch Departure - Departure Disposition: [facility] Clinical Impression: Shortness of breath, Hypoxemia Congestive heart failure (CHF) Qualifiers: Congestive heart failure type: unspecified congestive heart failure type Congestive heart failure chronicity: acute on chronic Qualified Code(s): I50.9 - Heart failure, unspecified Condition: Fair Referrals: NONE *PRIMARY CARE P,. [Primary Care Provider] - As per Instructions
--- NOTE | 2017-01-26 14:41 | CPEKG ---
Heart Rate: 75 RR Interval: 800 P-R Interval: 156 QRSD Interval: 96 QT Interval: 424 QTC Interval: 474 P [place]: 52 QRS [place]: -49 T Wave [place]: 129 EKG Severity - ABNORMAL ECG - EKG Impression: SINUS RHYTHM EKG Impression: ATRIAL PREMATURE COMPLEX EKG Impression: LEFT ANTERIOR FASCICULAR BLOCK EKG Impression: LVH WITH SECONDARY REPOLARIZATION ABNORMALITY Electronically Signed By: Tee Rodriguez 27-Jan-2017 14:00:59
[2017-01-26 14:42] LABS: % IMMATURE GRANULYOCYTES 0.4 % (0.0-1.1); ABSOLUTE IMMATURE GRANULOCYTES 0.03 10^3/uL (0.00-0.10); ADD DIFF? NO; ADD MORPH? NO; ADD SCAN? NO; ATYPICAL LYMPHOCYTE FLAG 0 (0-99); FRAGMENT RBC FLAG 0 (0-99); HEMATOCRIT 43.9 % (38.0-47.0); HEMOGLOBIN 14.4 g/dL (12.6-16.3); LEFT SHIFT FLG 0 (0-99); LIPEMIA HEMOLYSIS FLAG 80 (0-99); MEAN CELL HEMOGLOBIN 30.3 pg (27.9-34.1); MEAN CELL HEMOGLOBIN CONCENTR. 32.8 g/dL (32.4-36.7); MEAN CELL VOLUME 92.4 fL (81.5-99.8); MEAN PLATELET VOLUME 9.3 fL (8.7-11.7); PLATELET CLUMPS FLAG 0 (0-99); PLATELET COUNT 201 10^3/uL (150-400); RED BLOOD CELL COUNT 4.75 10^6/uL (4.18-5.33); RED CELL DISTRIBUTION WIDTH 15.3 % (11.5-15.2)
[2017-01-26 14:52] LABS: APTT 25.2 SEC (23.0-38.0); INR 0.95 (0.83-1.16); PROTIME(PATIENT) 12.4 SEC (12.0-15.0)
[2017-01-26] MEDS ORDERED: FUROSEMIDE 20 MG/2 ML VIAL IVP ONE (14:53)
[2017-01-26 14:56] LABS: ANION GAP 9 mEq/L (8-16); CALCIUM 9.3 mg/dL (8.5-10.4); CARBON DIOXIDE 27 mEq/l (22-31); CHLORIDE 101 mEq/L (97-110); CREATININE 0.9 mg/dL (0.6-1.0); GLOMERULAR FILTRATION RATE > 60; GLUCOSE 124 mg/dL (70-100); MAGNESIUM 1.9 mg/dL (1.6-2.3); POTASSIUM 4.9 mEq/L (3.5-5.2); SODIUM 137 mEq/L (134-144)
[2017-01-26 15:07] LABS: TROPONIN I 0.153 ng/mL (0-0.034)
[2017-01-26] MEDS ORDERED: ASPIRIN EC 325 MG TAB PO ONE (15:13)
[2017-01-26] MEDS ORDERED: IPRATROPIUM/ALBUTEROL 3 ML DEYVIAL IH ONE (15:29)
[2017-01-26 16:48] VITALS: PULSE 63; RESP 21
[2017-01-26] MEDS ORDERED: NICOTINE POLACRILEX 2 MG GUM B PRN (17:01)
[2017-01-26 18:46] VITALS: BP 122/79; TEMP 98.8; O2SAT 99
== END 2017-01-26 18:25 | disposition short-term general hospital (02) ==
LOC: CED 14:13
DX: I11.0 Hypertensive heart disease with heart failure (principal); I50.9 Heart failure, unspecified; R09.02 Hypoxemia; F17.200 Nicotine dependence, unspecified, uncomplicated; I25.2 Old myocardial infarction
CPT/HCPCS: 71020-PO; 80048-PO; 83735-PO; 83880-PO; 84484-PO; 85025-PO; 85610-PO; 85730-PO; 96374; J1940

== ENCOUNTER 2017-02-05 16:05 | Emergency (ER) | payer MEDICAID ==
[2017-02-05 16:15] VITALS: TEMP 99.7
[2017-02-05] MEDS ORDERED: IPRATROPIUM/ALBUTEROL 3 ML DEYVIAL IH ONE (16:56)
--- NOTE | 2017-02-05 16:58 | EDPHY ---
H & P Stated Complaint: Increased SOB x 4 days Time Seen by Provider: 02/05/17 16:44 HPI/ROS: CHIEF COMPLAINT: Dyspnea HISTORY OF PRESENT ILLNESS: Patient presents to the ED with 2 days of increasing dyspnea. She has a history of COPD as well as hypertrophic cardiomyopathy. She currently is being evaluated for possible AICD placement secondary to nonsustained V-tach during recent hospitalization. Patient was admitted to the hospital for dyspnea approximately 1 week ago. She was treated with both Lasix as well as albuterol and steroids. She symptomatically improved and was discharged home. The patient tells me she has been using Ventolin 3 times a day. REVIEW OF SYSTEMS: A comprehensive 10 point review of systems is otherwise negative aside from elements mentioned in the history of present illness. Source: Patient Exam Limitations: No limitations - Personal History Current Tetanus/Diphtheria Vaccine: No Current Tetanus Diphtheria and Acellular Pertussis (TDAP): No - Medical/Surgical History Hx Asthma: No Hx Chronic Respiratory Disease: No Hx Diabetes: No Hx Cardiac Disease: No Hx Renal Disease: No Hx Cirrhosis: No Hx Alcoholism: No Hx HIV/AIDS: No Hx Splenectomy or Spleen Trauma: No Other PMH: Bipolar, schizophrenia. HTN. Myocardial Infarction. Fibromyalgia. Polyneuropathies. Arthritis. Agranulocytosis - Social History Smoking Status: Light smoker - Physical Exam Exam: General Appearance: Alert, no distress Eyes: Pupils equal and round no pallor or injection ENT, Mouth: Mucous membranes moist Respiratory: No tachypnea, expiratory wheezing noted bilaterally Cardiovascular: Regular rate and rhythm Gastrointestinal: Abdomen is soft and nontender, no masses, bowel sounds normal Neurological: A&O, normal motor function, normal sensory exam, normal cranial nerves Skin: Warm and dry, no rashes Musculoskeletal: Neck is supple nontender Extremities: symmetrical, full range of motion, mild 1+ bilateral pedal edema Constitutional: Initial Vital Signs Temperature (C) 37.6 C 02/05/17 16:05 Heart Rate 85 02/05/17 16:05 Respiratory Rate 16 02/05/17 16:05 Blood Pressure 117/78 02/05/17 16:05 O2 Sat (%) 96 02/05/17 16:05 O2 Delivery Mode Nasal Cannula O2 (L/minute) 2 Allergies/Adverse Reactions: carbamazepine [From Tegretol] Allergy (Verified 01/26/17 14:32) cefaclor [From Ceclor] Allergy (Verified 01/26/17 14:39) Cephalosporins Allergy (Verified 01/26/17 14:32) clozapine [From Clozaril] Allergy (Verified 01/26/17 14:32) lamotrigine Allergy (Verified 01/26/17 14:32) oxcarbazepine [From Trileptal] Allergy (Verified 01/26/17 14:32) Penicillins Allergy (Verified 01/26/17 14:32) Sulfa (Sulfonamide Antibiotics) Allergy (Verified 01/26/17 14:32) Thiazides Allergy (Verified 01/26/17 14:32) Home Medications: Medication Instructions Recorded Albuterol [Proventil Inhaler HFA 2 puffs IH TID #0 mdi 11/02/16 (*)] Docusate Sodium [Colace 100 MG (*)] 100 mg PO HS #0 cap 11/02/16 Estropipate [Ogen 0.75 MG (*)] 0.75 mg PO DAILY #0 tab 11/02/16 Levothyroxine [Synthroid 25 mcg 25 mcg PO DAILY@1000 #0 tab 11/02/16 (*)] [place] Carbonate ER [Eskalith Cr 450 mg PO DAILY #30 tab 11/02/16 450 mg (*)] QUEtiapine FUMARATE [Seroquel 200 200 mg PO DAILY@21 #30 tab 11/02/16 mg (*)] QUEtiapine FUMARATE [Seroquel 50 50 mg PO Q4 PRN #30 tab 11/02/16 mg (*)] celeCOXIB [CeleBREX] 100 mg PO BID #0 cap 11/02/16 Advair 250/50 (*) 01/26/17 Buspar (*) 01/26/17 INVEGA 01/26/17 Klonopin 01/26/17 Metoprolol Tartrate 01/26/17 Trazodone HCl 01/26/17 Ventolin Hfa Inhaler 01/26/17 predniSONE [prednisone 20mg (RX)] 3 tab PO DAILY #15 tab 02/05/17 predniSONE [prednisone 20mg (RX)] 3 tab PO DAILY #15 tab 02/05/17 Medical Decision Making - Diagnostics Imaging Results: Imaging Impressions Chest X-Ray 02/05/17 16:56 Impression: Central bronchitis, otherwise negative chest.. ED Course/Re-evaluation: The patient presents to the ED with complaints of mild dyspnea. The patient is noted to have expiratory wheezing on exam. The patient has a chronically elevated troponin which is not outside of its baseline level. The patient's BNP is also below her baseline level. Her chest x-ray demonstrates no evidence of heart failure or pneumonia. The patient did receive an albuterol nebulizer in the ED. She also received 60 mg of prednisone. The patient has no acute hypoxemia on 2 L of nasal cannula oxygen. The patient was observed in the emergency department for several hours. She is feeling better. At this point time I do feel her dyspnea is most likely secondary to a mild exacerbation of reactive airway disease. She will be discharged home with a 5 day course of prednisone. She is advised to continue her Ventolin. The patient should return to the emergency department for any acutely worsening pain or other concerns. The patient is scheduled to follow up with [facility] for consideration of an AICD secondary to her recent diagnosis of HOCM. We have observed no arrhythmia in the emergency department today. The patient was reexamined at 7:00 p.m.. Her vital signs are stable. Differential Diagnosis: Differential diagnosis considered includes asthma, bronchitis, pneumonia, heart failure, arrhythmia, myocardial infarction - Data Points Laboratory Results: Laboratory Results 02/05/17 16:20 02/05/17 16:20 02/05/17 02/05/17 16:20 16:20 WBC 7.55 10^3/uL 10^3/uL (3.80-9.50) RBC 4.81 10^6/uL 10^6/uL (4.18-5.33) Hgb 14.5 g/dL g/dL (12.6-16.3) Hct 43.6 % % (38.0-47.0) MCV 90.6 fL fL (81.5-99.8) MCH 30.1 pg pg (27.9-34.1) MCHC 33.3 g/dL g/dL (32.4-36.7) RDW 14.1 % % (11.5-15.2) Plt Count 217 10^3/uL 10^3/uL (150-400) MPV 10.6 fL fL (8.7-11.7) Neut % (Auto) 79.5 % H % (39.3-74.2) Lymph % (Auto) 8.7 % L % (15.0-45.0) [place] % (Auto) 8.5 % % (4.5-13.0) Eos % (Auto) 2.5 % % (0.6-7.6) Baso % (Auto) 0.4 % % (0.3-1.7) Nucleat RBC Rel Count 0.0 % % (0.0-0.2) Absolute Neuts (auto) 6.00 10^3/uL 10^3/uL (1.70-6.50) Absolute Lymphs (auto) 0.66 10^3/uL L 10^3/uL (1.00-3.00) Absolute Monos (auto) 0.64 10^3/uL 10^3/uL (0.30-0.80) Absolute Eos (auto) 0.19 10^3/uL 10^3/uL (0.03-0.40) Absolute Basos (auto) 0.03 10^3/uL 10^3/uL (0.02-0.10) Absolute Nucleated RBC 0.00 10^3/uL 10^3/uL (0-0.01) Immature Gran % 0.4 % % (0.0-1.1) Immature Gran # 0.03 10^3/uL 10^3/uL (0.00-0.10) Sodium 139 mEq/L mEq/L (134-144) Potassium 3.8 mEq/L mEq/L (3.5-5.2) Chloride 99 mEq/L mEq/L (97-110) Carbon Dioxide 30 mEq/l mEq/l (22-31) Anion Gap 10 mEq/L mEq/L (8-16) BUN 18 mg/dL mg/dL (7-23) Creatinine 0.8 mg/dL mg/dL (0.6-1.0) Estimated GFR > 60 Glucose 211 mg/dL H mg/dL (70-100) Calcium 9.3 mg/dL mg/dL (8.5-10.4) Troponin I 0.035 ng/mL H ng/mL (0-0.034) NT-Pro-B Natriuret Pep 2610 pg/mL H pg/mL (0-125) Medications Given: Discontinued Medications Acetaminophen (Tylenol) 1,000 mg PO EDNOW ONE Stop: 02/05/17 18:15 Last Admin: 02/05/17 18:19 Dose: 1,000 mg Albuterol/Ipratropium (Duoneb) 3 ml IH EDNOW ONE Stop: 02/05/17 16:57 Last Admin: 02/05/17 17:09 Dose: 3 ml Prednisone (Prednisone) 60 mg PO EDNOW ONE Stop: 02/05/17 18:38 Last Admin: 02/05/17 18:41 Dose: 60 mg Departure - Departure Referrals: Patient,NotPresent [Unknown] - As per Instructions Prescriptions: predniSONE [prednisone 20mg (RX)] 3 tab PO DAILY #15 tab predniSONE [prednisone 20mg (RX)] 3 tab PO DAILY #15 tab
[2017-02-05 17:01] LABS: % IMMATURE GRANULYOCYTES 0.4 % (0.0-1.1); ABSOLUTE IMMATURE GRANULOCYTES 0.03 10^3/uL (0.00-0.10); ADD DIFF? NO; ADD MORPH? NO; ADD SCAN? NO; ATYPICAL LYMPHOCYTE FLAG 0 (0-99); FRAGMENT RBC FLAG 0 (0-99); HEMATOCRIT 43.6 % (38.0-47.0); HEMOGLOBIN 14.5 g/dL (12.6-16.3); LEFT SHIFT FLG 0 (0-99); LIPEMIA HEMOLYSIS FLAG 80 (0-99); MEAN CELL HEMOGLOBIN 30.1 pg (27.9-34.1); MEAN CELL HEMOGLOBIN CONCENTR. 33.3 g/dL (32.4-36.7); MEAN CELL VOLUME 90.6 fL (81.5-99.8); MEAN PLATELET VOLUME 10.6 fL (8.7-11.7); PLATELET CLUMPS FLAG 0 (0-99); PLATELET COUNT 217 10^3/uL (150-400); RED BLOOD CELL COUNT 4.81 10^6/uL (4.18-5.33); RED CELL DISTRIBUTION WIDTH 14.1 % (11.5-15.2)
[2017-02-05 17:07] LABS: ANION GAP 10 mEq/L (8-16); CALCIUM 9.3 mg/dL (8.5-10.4); CARBON DIOXIDE 30 mEq/l (22-31); CHLORIDE 99 mEq/L (97-110); CREATININE 0.8 mg/dL (0.6-1.0); GLOMERULAR FILTRATION RATE > 60; GLUCOSE 211 mg/dL (70-100); POTASSIUM 3.8 mEq/L (3.5-5.2); SODIUM 139 mEq/L (134-144)
[2017-02-05 17:19] LABS: TROPONIN I 0.035 ng/mL (0-0.034)
[2017-02-05] MEDS ORDERED: ACETAMINOPHEN 500 MG TAB PO ONE (18:14)
[2017-02-05] MEDS ORDERED: predniSONE 20 MG TAB PO ONE (18:37)
[2017-02-05 19:37] VITALS: BP 103/62; PULSE 77; RESP 16; O2SAT 96
== END 2017-02-05 19:36 | disposition home or self-care (01) ==
LOC: EDUNIT#
DX: J44.9 Chronic obstructive pulmonary disease, unspecified (principal); I10 Essential (primary) hypertension; I25.2 Old myocardial infarction; F17.200 Nicotine dependence, unspecified, uncomplicated

== ENCOUNTER 2017-05-19 09:28 | Inpatient (IN) | payer OTHER, MEDICAID ==
[2017-05-19] MEDS ORDERED: MAGNESIUM SULF 2 GM/WATER 50 ML IV ONE (09:37)
[2017-05-19] MEDS ORDERED: FUROSEMIDE 40 MG/4 ML VIAL IVP ONE (09:37)
[2017-05-19] MEDS ORDERED: methylPREDNISolone SOD SUCC 125 MG/2 ML VIAL IVP ONE (09:37)
[2017-05-19] MEDS ORDERED: IPRATROPIUM/ALBUTEROL 3 ML DEYVIAL IH ONE (09:37)
--- NOTE | 2017-05-19 09:46 | EDPHY ---
H & P Time Seen by Provider: 05/19/17 09:30 HPI/ROS: HPI Shortness of breath. 45-year-old female on foot. This patient has a history of reactive airway disease and heart failure. She reports that she was just discharged from [facility] after being admitted there for 2 days for the same complaint. She presents to the emergency department this morning stating that she has had worsening shortness of breath with exertion since being discharged and significantly worse this morning. She reports having an intermittent dry cough. No fever. Please see past medical history below. She reports that she was supposed to take Lasix this morning but has run out of this medication. ROS: Constitutional: No fever, no chills. No weakness. Eyes: No discharge. No changes in vision. ENT: No sore throat. No nasal congestion or rhinorrhea. Respiratory: As above. Cardiac: No chest pain, no palpitations. Gastrointestinal: No abdominal pain, no vomiting, no diarrhea. Genitourinary: No hematuria. No dysuria or increased frequency with urination. Musculoskeletal: No back pain. No neck pain. No myalgias or arthralgias. Skin: No rashes. Neurological: No headache. No focal weakness or altered sensation. Past medical history: Bipolar, schizophrenia, hypertension, myocardial infarction, fibromyalgia, polyneuropathy, arthritis, agranulocytosis, she has a chronically elevated troponin and BNP. She also has a history of hypertrophic cardiomyopathy, COPD and reactive airway disease. Social history: She is here by herself. Homeless. She is a smoker. Denies alcohol. Physical Exam: General Appearance: Alert, no distress. Moderately obese. This patient is responding to questions appropriately and in full sentences. This patient appears well-hydrated and well-nourished. No voice changes. Eyes: Pupils equal and round no pallor or injection. No lid edema, erythema or injection. Respiratory: There are no retractions, decreased air movement with diffuse wheezing in intermittent scant rhonchi throughout. No tachypnea. Cardiovascular: Regular rate and rhythm. Holosystolic murmur noted. Gastrointestinal: Abdomen is soft and nontender, no masses, bowel sounds normal. No focal tenderness at McBurney's point. No sign. Neurological: Motor sensory function is grossly intact. Cranial nerves are normal. Gait is normal. Skin: Warm and dry, no rashes. Musculoskeletal: Neck is supple and nontender. Extremities are symmetrical. All joints range without pain or impingement. Psychiatric: No agitation. No depression. Database: EKG: EKG time is 10:02 a.m.; EKG shows a narrow complex normal sinus rhythm with a ventricular rate of 79. Atrial premature complexes noted. Left ventricular hypertrophy. The OH, QRS, QT intervals are within normal limits. There are no ST-T wave changes indicative of ischemic or injury pattern. No evidence of right heart strain. Interpreted by me. Imaging: Chest x-ray PA and lateral; the cardiac mediastinal silhouette is unremarkable. No evidence of infiltrate or pneumothorax. Mild bronchitis. No acute cardiopulmonary disease process noted. Interpreted by me. Procedures: Emergency department course: IV placed. Vital signs reviewed. Room air pulse oximetry 87-80%. She is hypertensive. Afebrile. EKG obtained and reviewed by myself. Patient sent for chest x-ray. Initial therapy included DuoNeb x2, 2 g of IV magnesium, 125 mg of IV Solu-Medrol and 40 mg of IV Lasix. 10:40 a.m., patient re-evaluated. She still has significant wheezing bilaterally with little change from her initial exam. She was started on a 15 mL continuous albuterol nebulizer treatment. Blood work is pending. Blood work reviewed. Her troponin is within baseline of her chronically elevated troponins. Her BMP at 7620 is higher than usual 2-3000. Hospitalist paged. 11:15 a.m., patient re-evaluated. She is about correction through her continuous nebulizer treatment. She still has significant wheezing. I discussed the results of her emergency department testing. I explained we would admit her to our hospitalist service. All of her questions were answered. 11:20 a.m., spoke with hospitalist Dr. Rayshawn Doty. Patient accepted for admission to the hospitalist service. Patient will be transferred by ambulance. Patient will have psych evaluation after admission. She was transferred in stable and improved condition. Differential Diagnosis: The differential diagnosis on this patient includes but is not limited to COPD exacerbation, reactive airway disease, congestive heart failure, anxiety, bronchitis. Pneumonia, acute coronary syndrome, pulmonary embolism unlikely. This represents a partial list of diagnoses considered. These considerations are based on history, physical exam, past history, reassessment and diagnostic testing. Smoking Status: Current every day smoker Constitutional: Initial Vital Signs Temperature (C) 36.5 C 05/19/17 09:32 Heart Rate 90 05/19/17 09:32 Respiratory Rate 20 05/19/17 09:32 Blood Pressure 167/111 H 05/19/17 09:32 O2 Sat (%) 88 L 05/19/17 09:32 O2 Delivery Mode Nasal Cannula O2 (L/minute) 1 Allergies/Adverse Reactions: carbamazepine [From Tegretol] Allergy (Verified 05/19/17 09:39) cefaclor [From Ceclor] Allergy (Verified 05/19/17 09:39) Cephalosporins Allergy (Verified 05/19/17 09:39) clozapine [From Clozaril] Allergy (Verified 05/19/17 09:39) lamotrigine Allergy (Verified 05/19/17 09:39) oxcarbazepine [From Trileptal] Allergy (Verified 05/19/17 09:39) Penicillins Allergy (Verified 05/19/17 09:39) Sulfa (Sulfonamide Antibiotics) Allergy (Verified 05/19/17 09:39) Thiazides Allergy (Verified 05/19/17 09:39) Home Medications: Medication Instructions Recorded Docusate Sodium [Colace 100 MG (*)] 100 mg PO HS #0 cap 11/02/16 Estropipate [Ogen 0.75 MG (*)] 0.75 mg PO DAILY #0 tab 11/02/16 Levothyroxine [Synthroid 25 mcg 25 mcg PO DAILY@1000 #0 tab 11/02/16 (*)] [place] Carbonate ER [Eskalith Cr 450 mg PO DAILY #30 tab 11/02/16 450 mg (*)] QUEtiapine FUMARATE [Seroquel 200 200 mg PO DAILY@21 #30 tab 11/02/16 mg (*)] celeCOXIB [CeleBREX] 100 mg PO BID #0 cap 11/02/16 Buspar (*) 01/26/17 INVEGA 01/26/17 Klonopin 01/26/17 Metoprolol Tartrate 01/26/17 Trazodone HCl 01/26/17 Ventolin Hfa Inhaler 01/26/17 predniSONE [prednisone 20mg (RX)] 3 tab PO DAILY #15 tab 02/05/17 Medical Decision Making - Diagnostics Imaging Results: Imaging Impressions Chest X-Ray 05/19/17 09:37 Impression: Prominence of perihilar interstitial markings and peribronchial cuffing. Findings are nonspecific but can be seen with bronchitis, reactive airway disease, or viral process. Findings are similar to the prior exam. - Data Points Laboratory Results: Laboratory Results 05/19/17 10:25 05/19/17 10:25 05/19/17 05/19/17 05/19/17 10: 10: 10: WBC 8.75 10^3/uL 10^3/uL (3.80-9.50) RBC 5.33 10^6/uL 10^6/uL (4.18-5.33) Hgb 16.5 g/dL H g/dL (12.6-16.3) Hct 46.2 % % (38.0-47.0) MCV 86.7 fL fL (81.5-99.8) MCH 31.0 pg pg (27.9-34.1) MCHC 35.7 g/dL g/dL (32.4-36.7) RDW 12.5 % % (11.5-15.2) Plt Count 204 10^3/uL 10^3/uL (150-400) MPV 9.7 fL fL (8.7-11.7) Neut % (Auto) 89.5 % H % (39.3-74.2) Lymph % (Auto) 6.5 % L % (15.0-45.0) [place] % (Auto) 3.3 % L % (4.5-13.0) Eos % (Auto) 0.0 % L % (0.6-7.6) Baso % (Auto) 0.1 % L % (0.3-1.7) Nucleat RBC Rel Count 0.0 % % (0.0-0.2) Absolute Neuts (auto) 7.83 10^3/uL H 10^3/uL (1.70-6.50) Absolute Lymphs (auto) 0.57 10^3/uL L 10^3/uL (1.00-3.00) Absolute Monos (auto) 0.29 10^3/uL L 10^3/uL (0.30-0.80) Absolute Eos (auto) 0.00 10^3/uL L 10^3/uL (0.03-0.40) Absolute Basos (auto) 0.01 10^3/uL L 10^3/uL (0.02-0.10) Absolute Nucleated RBC 0.00 10^3/uL 10^3/uL (0-0.01) Immature Gran % 0.6 % % (0.0-1.1) Immature Gran # 0.05 10^3/uL 10^3/uL (0.00-0.10) Sodium 138 mEq/L mEq/L (134-144) Potassium 4.5 mEq/L mEq/L (3.5-5.2) Chloride 102 mEq/L mEq/L (97-110) Carbon Dioxide 26 mEq/l mEq/l (22-31) Anion Gap 10 mEq/L mEq/L (8-16) BUN 14 mg/dL mg/dL (7-23) Creatinine 0.8 mg/dL mg/dL (0.6-1.0) Estimated GFR > 60 Glucose 172 mg/dL H mg/dL (70-100) Calcium 10.2 mg/dL mg/dL (8.5-10.4) Troponin I 0.058 ng/mL H ng/mL (0.000-0.034) NT-Pro-B Natriuret Pep 7620 pg/mL H pg/mL (0-125) [place] Pending Medications Given: Discontinued Medications Albuterol (Proventil Neb) 15 ml IH EDNOW ONE Stop: 05/19/17 10:39 Last Admin: 05/19/17 10:59 Dose: 15 ml Albuterol/Ipratropium (Duoneb) 6 ml IH EDNOW ONE Stop: 05/19/17 09:38 Last Admin: 05/19/17 10:00 Dose: 6 ml Furosemide (Lasix Injection) 40 mg IVP EDNOW ONE Stop: 05/19/17 09:38 Last Admin: 05/19/17 11:06 Dose: Not Given Magnesium Sulfate (Magnesium Sulf 2 Gm (Premix)) 50 mls @ 50 mls/hr IV EDNOW ONE Stop: 05/19/17 10:36 Last Admin: 05/19/17 10:32 Dose: 50 mls Methylprednisolone Sodium Succinate (Solu-Medrol) 125 mg IVP EDNOW ONE Stop: 05/19/17 09:38 Last Admin: 05/19/17 10:27 Dose: 125 mg Departure - Departure Disposition: [facility] Inpatient Acute Clinical Impression: Dyspnea on exertion, Bronchitis, Hypoxia, Reactive airway disease Referrals: Favio Darden DO [Primary Care Provider] - As per Instructions
--- NOTE | 2017-05-19 10:04 | CPEKG ---
Heart Rate: 79 RR Interval: 759 P-R Interval: 156 QRSD Interval: 102 QT Interval: 412 QTC Interval: 473 P Marshall: 57 QRS Marshall: -49 T Wave Marshall: 128 EKG Severity - ABNORMAL ECG - EKG Impression: SINUS RHYTHM EKG Impression: ATRIAL PREMATURE COMPLEX EKG Impression: PROBABLE LEFT ATRIAL ABNORMALITY EKG Impression: LEFT ANTERIOR FASCICULAR BLOCK EKG Impression: LVH WITH SECONDARY REPOLARIZATION ABNORMALITY EKG Impression: ANTERIOR Q WAVES, POSSIBLY DUE TO LVH EKG Impression: LATERAL LEADS ARE ALSO INVOLVED Electronically Signed By: Lokesh Fitch 19-May-2017 15:17:29
[2017-05-19 10:35] LABS: % IMMATURE GRANULYOCYTES 0.6 % (0.0-1.1); ABSOLUTE IMMATURE GRANULOCYTES 0.05 10^3/uL (0.00-0.10); ADD DIFF? NO; ADD MORPH? NO; ADD SCAN? NO; ATYPICAL LYMPHOCYTE FLAG 10 (0-99); FRAGMENT RBC FLAG 0 (0-99); HEMATOCRIT 46.2 % (38.0-47.0); HEMOGLOBIN 16.5 g/dL (12.6-16.3); LEFT SHIFT FLG 0 (0-99); LIPEMIA HEMOLYSIS FLAG 90 (0-99); MEAN CELL HEMOGLOBIN CONCENTR. 35.7 g/dL (32.4-36.7); MEAN CELL VOLUME 86.7 fL (81.5-99.8); MEAN PLATELET VOLUME 9.7 fL (8.7-11.7); PLATELET CLUMPS FLAG 0 (0-99); PLATELET COUNT 204 10^3/uL (150-400); RED BLOOD CELL COUNT 5.33 10^6/uL (4.18-5.33); RED CELL DISTRIBUTION WIDTH 12.5 % (11.5-15.2)
[2017-05-19] MEDS ORDERED: ALBUTEROL 3 ML DEYVIAL IH ONE (10:38)
[2017-05-19 10:46] LABS: ANION GAP 10 mEq/L (8-16); CALCIUM 10.2 mg/dL (8.5-10.4); CARBON DIOXIDE 26 mEq/l (22-31); CHLORIDE 102 mEq/L (97-110); CREATININE 0.8 mg/dL (0.6-1.0); GLOMERULAR FILTRATION RATE > 60; GLUCOSE 172 mg/dL (70-100); POTASSIUM 4.5 mEq/L (3.5-5.2); SODIUM 138 mEq/L (134-144)
[2017-05-19 10:59] LABS: TROPONIN I 0.058 ng/mL (0.000-0.034)
[2017-05-19] MEDS ORDERED: ACETAMINOPHEN 325 MG TAB PO ONE (11:24)
[2017-05-19 12:45] LABS: LITHIUM 0.7 mEq/L (0.6-1.2)
[2017-05-19] MEDS ORDERED: ONDANSETRON DISINTEGRATING 4 MG TAB PO PRN (13:37)
[2017-05-19] MEDS ORDERED: ONDANSETRON 4 MG/2 ML VIAL IVP PRN (13:37)
[2017-05-19] MEDS ORDERED: oxyCODONE IR 5 MG TAB PO PRN (13:37)
[2017-05-19] MEDS ORDERED: FUROSEMIDE 20 MG/2 ML VIAL IVP ONE (13:59)
[2017-05-19] MEDS: LORazepam 0.5 MG TAB PO PRN (14:07)
--- NOTE | 2017-05-19 14:43 | GHP ---
[f rep st] HISTORY AND PHYSICAL DATE OF ADMISSION: 05/19/2017 CHIEF COMPLAINT: Shortness of breath. HISTORY OF PRESENT ILLNESS: This is a 46-year-old female, who was discharged yesterday from [facility] [place] for respiratory complaints, presents with shortness of breath. She was apparently treated wit h steroids as well as nebulizers there, discharged with prednisone 20 mg. She has a lot of social st ressors in her life including a son who has just come back into her life, whom she is having problems with. She is not staying at home, either. It is unclear whether she was able to get all of her med ications last night, as well. She presents today with ongoing shortness of breath and wheezing. She has a nonproductive cough. She has worsening lower extremity edema. She continues to smoke. PAST MEDICAL/SURGICAL HISTORY: 1. Bipolar. 2. Schizophrenia. 3. Hypertension. 4. Questionable coronary artery disease, though she has never received any stents. 5. COPD. 6. Reactive airways disease. 7. Chronically elevated troponin and BNP. 8. Hypertrophic obstructive cardiomyopathy. MEDICATIONS: Please see medication reconciliation. ALLERGIES: Multiple allergies including Tegretol, cephalosporins, Clozaril, Lamictal, Trileptal, pen icillin, sulfa and thiazides. FAMILY HISTORY: Reviewed and noncontributory. SOCIAL HISTORY: She continues to smoke. REVIEW OF SYSTEMS: A 10-point review of systems is conducted and is negative except per HPI. PHYSICAL EXAM: VITAL SIGNS: Blood pressure 128/88, heart rate is 82, respiration rate 16, saturatin g 93% on 1 L. She was as low as 88% on room air. GENERAL: The patient is a pleasant female who daron ears somewhat anxious, otherwise, in no acute distress. HEENT: Normocephalic, atraumatic. CARDIOVA SCULAR: A very prominent 2/6 systolic crescendo decrescendo murmur. PULMONARY: Mild diffuse rhonch i. She has bilateral basilar rales. ABDOMEN: Soft, nontender, nondistended. SKIN: No rash. : No [place]. NEUROLOGIC: Alert and oriented x3. She is moving all extremities. PSYCHIATRIC: Anxiou s. EXTREMITIES: 1+ bilateral lower extremity edema. LABS: CBC is relatively unremarkable. Troponin 0.05. BNP is 7620. [place] 0.7. DATA: 1. I personally viewed and interpreted her EKG, which shows sinus rhythm. She has premature atrial contraction. She has T-wave inversions in leads 1 and L. She has slow R-wave progression. This is not very dissimilar from her previous EKG, which was done January 26 of this year. 2. Chest x-ray, which I personally viewed and interpreted, shows normal cardiac silhouette. She has some prominent vasculature. Diaphragms are not visible on her AP. There are no infiltrates. IMPRESSION AND PLAN: 1. Acute on chronic respiratory failure: This is a combination of chronic obstructive pulmonary dis ease and volume overload. Viral panel is pending. Her BNP is elevated above its baseline. She has quite a prominent murmur, known history of Vince, but her murmur does not seem consistent. We will check an echocardiogram. We will give her 1 dose of Lasix. Follow her electrolytes and kidney func tion tomorrow. She received a large dose of IV steroids in the emergency department. Will start her on prednisone 40 mg tomorrow. I am concerned, given her anxiety, that too high dose would be worse for her. We will hold off on antibiotics now, check the procalcitonin. 2. Elevated troponin: She is essentially at her baseline. We will check a few more troponins to ma ke sure that she does not have an elevation. I do not suspect that this is acute coronary syndrome o r heart disease at this point. 3. Tobacco use: Counseled her on cessation. 4. Chronic obstructive pulmonary disease with acute exacerbation: As above. 5. Bipolar: She has significant stressors in her life. She tells me that she has no desire to hurt herself at this point. We will continue her psychiatric medications. She does not appear manic to me. 6. Vince: Checking echocardiogram as above. /[id number]/MODL
[2017-05-19] MEDS ORDERED: ALBUTEROL 200 PUFFS/18 GM MDI IH PRN (15:06)
[2017-05-19] MEDS: IPRATROPIUM/ALBUTEROL 3 ML DEYVIAL IH SCH ×2 (16:10→21:53)
--- NOTE | 2017-05-19 16:27 | ECHO ---
[email or web address] [address] [address] Main: [phone] Fax: Transthoracic Echocardiogram Name: VARUN NASSAR MR#: [id number] Study Date: 05/19/2017 Study Time: 02:19 PM Date of : 1970 Age: 46 year(s) Height: 165.1 cm (65 in.) Weight: 104.33 kg (230 lb.) BSA: 2.1 m2 Gender: Female Examination: Echo Indication: Murmur Image Quality: Contrast: Requested by: Rayshawn Doty BP: 128 mmHg/88 mmHg Heart Rate: Rhythm: Indication: Murmur Procedure Staff Lumber Sorter: Dawson Nagy Reading Physician: Tee Rodriguez Requesting Provider: Conclusions: Normal size left ventricle. Moderate to Severe concentric LV hypertrophy. Global hypercontractility of the left ventricle. EF is 72 %. No regional wall motion abnormality. There is a LVOT obstruction, with a PG 55-60mmHg, difficult to assess exact gradient with hypercontactile venticle. The left atrium is mildly dilated. The aortic valve Mean PG is near 20 mmHg with no aortic stenosis. Mean gradient may be overestimated due to LVOT gradient and chordal systolic anterior motion. Mild to moderate aortic valve regurgitation. Measurements: Chambers Valvular Assessment AV/MV Valvular Assessment TV/PV Normal Normal Normal Name Value Range Name Value Range Name Value Range Ao Bryanna (MM): 3.3 cm (2.2 cm-3.7 AV Vmax: 2.29 m/s (1 m/s-1.7 PV Vmax: 1.44 m/s (0.6 m/s-0.9 cm) m/s) m/s) IVSd (2D): 1.7 cm (0.6 cm-1.1 AV maxP mmHg ( - ) PV PGmax: 8 mmHg ( - ) cm) AV meanP mmHg ( - ) LVDd (2D): 4.0 cm (3.9 cm-5.3 LVOT Vmax: 4.60 m/s (0.7 m/s-1.1 cm) m/s) LVDs (2D): 2.4 cm (2.1 cm-4 AZIZA (Vmax): 5.7 cm2 ( - ) cm) AZIZA (VTI): 4.5 cm ( - ) LVPWd (2D): 1.6 cm ( - ) AR (PHT): 592 ms ( - ) LVOTd 1.9 cm 1.9 cm mm MV E Vmax: 1.11 m/s ( - ) LVEF (2D): 72 (>=54 %) MV A Vmax: 1.24 m/s ( - ) MV E/A: 0.90 ( - ) Continued Measurements: Patient: VARUN NASSAR Study Date: 05/19/2017 Page 1 of 2 02:19 PM Chambers Valvular Assessment AV/MV Name Value Name Value LADs Lon.1 cm MV E/E' Septal: 26.50 LA Area: 19.3 cm2 MV E/E' Lateral: 27.10 LA Volume: 75 ml AR Vmax: 3.93 cm/s LA Volume Index: 35.7 ml/m2 Findings: Left Ventricle: Normal size left ventricle. Moderate to Severe concentric LV hypertrophy. Global hypercontractility of the left ventricle. EF is 72 %. No regional wall motion abnormality. Diastolic dysfunction is present. . There is a LVOT obstruction, with a PG 55-60mmHg, difficult to assess exact gradient with hypercontactile venticle. Right Ventricle: Normal size right ventricle. Normal RV function. Left Atrium: The left atrium is mildly dilated. Right Atrium: The right atrium is normal in size. Mitral Valve: Chordal systolic anterior motion. Aortic Valve: Mild aortic cusp calcification is noted. The aortic valve Mean PG is near 20 mmHg with no aortic stenosis. Mean gradient may be overestimated due to LVOT gradient and chordal systolic anterior motion. Mild to moderate aortic valve regurgitation. Tricuspid Valve: The tricuspid valve is normal in appearance and function. Pulmonic Valve: The pulmonic valve is normal in appearance and function. Aorta: The aorta is normal. Pericardium: No pericardial effusion. (No Signature Object) Patient: VARUN NASSAR Study Date: 05/19/2017 Page 2 of 2 02:19 PM [id number]
[2017-05-19] MEDS: busPIRone 10 MG TAB PO SCH ×2 (17:05→21:42)
[2017-05-19] MEDS: ACETAMINOPHEN 325 MG TAB PO PRN ×2 (17:06→21:42)
[2017-05-19] MEDS: QUEtiapine FUMARATE 50 MG TAB PO SCH (21:42)
[2017-05-19] MEDS: LITHIUM CARBONATE ER 300 MG TAB PO SCH (21:42)
[2017-05-19] MEDS: DOCUSATE SODIUM 100 MG CAP PO SCH (21:43)
[2017-05-19] MEDS: clonazePAM 1 MG TAB PO SCH (21:43)
[2017-05-19] MEDS: traZODone 100 MG TAB PO SCH (21:44)
[2017-05-20 04:40] LABS: % IMMATURE GRANULYOCYTES 0.5 % (0.0-1.1); ABSOLUTE IMMATURE GRANULOCYTES 0.05 10^3/uL (0.00-0.10); ADD DIFF? NO; ADD MORPH? NO; ADD SCAN? NO; ATYPICAL LYMPHOCYTE FLAG 10 (0-99); FRAGMENT RBC FLAG 0 (0-99); HEMATOCRIT 42.8 % (38.0-47.0); LEFT SHIFT FLG 0 (0-99); LIPEMIA HEMOLYSIS FLAG 90 (0-99); MEAN CELL HEMOGLOBIN 31.1 pg (27.9-34.1); MEAN CELL VOLUME 88.6 fL (81.5-99.8); MEAN PLATELET VOLUME 9.6 fL (8.7-11.7); PLATELET CLUMPS FLAG 0 (0-99); PLATELET COUNT 206 10^3/uL (150-400); RED BLOOD CELL COUNT 4.83 10^6/uL (4.18-5.33); RED CELL DISTRIBUTION WIDTH 12.4 % (11.5-15.2)
[2017-05-20 04:55] LABS: ALANINE AMINOTRANSFERASE 37 IU/L (9-52); ALBUMIN 2.9 g/dL (3.5-5.0); ALKALINE PHOSPHATASE 49 IU/L (38-126); ANION GAP 7 mEq/L (8-16); ASPARTATE AMINOTRANSFERASE 17 IU/L (14-46); BILIRUBIN,TOTAL 0.8 mg/dL (0.1-1.4); CALCIUM 9.7 mg/dL (8.5-10.4); CARBON DIOXIDE 30 mEq/l (22-31); CHLORIDE 103 mEq/L (97-110); CREATININE 0.7 mg/dL (0.6-1.0); GLOMERULAR FILTRATION RATE > 60; GLUCOSE 114 mg/dL (70-100); POTASSIUM 4.5 mEq/L (3.5-5.2); SODIUM 140 mEq/L (134-144); TOTAL PROTEIN 5.6 g/dL (6.3-8.2)
[2017-05-20 05:06] LABS: TROPONIN I 0.048 ng/mL (0.000-0.034)
[2017-05-20] MEDS: IPRATROPIUM/ALBUTEROL 3 ML DEYVIAL IH SCH ×4 (06:00→20:51)
[2017-05-20] MEDS: LEVOTHYROXINE 25 MCG TAB PO SCH (08:17)
[2017-05-20] MEDS: predniSONE 20 MG TAB PO SCH (09:17)
[2017-05-20] MEDS: ESTROPIPATE 0.75 MG TAB PO SCH (09:18)
[2017-05-20] MEDS: busPIRone 10 MG TAB PO SCH ×3 (09:18→21:02)
[2017-05-20] MEDS: METOPROLOL SUCCINATE XR 25 MG TAB PO SCH (09:18)
[2017-05-20] MEDS: ASCORBIC ACID 500 MG TAB PO SCH (09:21)
[2017-05-20] MEDS: LITHIUM CARBONATE ER 300 MG TAB PO SCH ×2 (10:36→21:02)
[2017-05-20] MEDS: NICOTINE 21 MG/24 HR PATCH TD SCH (10:41)
[2017-05-20] MEDS ORDERED: NS 500 ML IV ONE (11:08)
--- NOTE | 2017-05-20 14:19 | HOSPPROG ---
Hospitalist Progress Note Assessment/Plan: 46y female with c/o SOB. First encounter, chart reviewed. D/W RN and CM. #CHF cont lasix BNP better #Hypotension fluid bolus given close following given above responding to fluid #AHRF no abx given procalcitonin stable cont prednisone cont lasix in am multifactorial #Elevated trop chronic, stable no CP no EKG changes #COPD exacerbation cont steroids #Vince see ECHO consider cards consult if not improving #Bipolar cont meds #Homeless reviewed with CM #Tobacco abuse patch, cessation #Dispo change to inpt status requires further in hospital evaluation and treatment Subjective: Still feeling SOB. Feels lightheaded. No pain. Objective: Vital Signs Temp Pulse Resp BP Pulse Ox 37.3 C 84 16 97/73 L 96 05/20/17 07:36 05/20/17 10:57 05/20/17 10:57 05/20/17 12:35 05/20/17 10:57 Laboratory Results 05/20/17 04:24 05/20/17 04:24 05/19/17 05/20/17 05/21/17 05:59 05:59 05:59 Intake Total 75 Balance 75 - Physical Exam Constitutional: not in pain, chronically ill appearing, obese, uncomfortable Eyes: PERRL, anicteric sclera, EOMI Ears, Nose, Mouth, Throat: moist mucous membranes, hearing normal, ears appear normal Cardiovascular: systolic murmur, No JVD, No tachycardia, No edema Respiratory: no respiratory distress, no rales or rhonchi, reduced air movement , expiratory wheeze Gastrointestinal: No tenderness, No ascites, No guarding Skin: warm, normal color, No erythema Musculoskeletal: normal joint ROM, no joint effusions, generalized weakness Neurologic: AAOx3 Psychiatric: not anxious, not encephalopathic, thought process linear, poor judgement ICD10 Worksheet Patient Problems: Problems Problem Status Onset Psychosis Acute Shortness of breath Acute Apnea Acute Acute psychosis Acute Bipolar disorder Acute Dyspnea on exertion Acute Bronchitis Acute Hypoxia Acute Reactive airway disease Acute
[2017-05-20] MEDS ORDERED: AZITHROMYCIN 250 MG TAB PO SCH (14:30)
--- NOTE | 2017-05-20 14:42 | PDMN ---
Medical Necessity Medical necessity: C/M review: est. > 2 MN LOS for eval and TX of acute and persistent - CHF, hypotension, hypoxic respiratory failure, elevated troponin, COPD exacerbation requiring ongoing cardiac monitoring, pulse oximetry, supplemental O2, Duonebs, comorbid hypertrophic obstructive cardiomyopathy, bipolar disorder, homelessness, tobacco abuse per 05/20/2017 Hospitalist progress note.
[2017-05-20] MEDS: LORazepam 0.5 MG TAB PO PRN (16:20)
--- NOTE | 2017-05-20 16:35 | ASMTCMCOM ---
CM Note CM Note Notes: Pt here w/hypoxia/bronchitis, has hx of bipolar and schizophrenia per H&P. Met w/pt; she said she has been staying at [facility] sleep shelters recently. She reports being in the [facility] path [facility] Home [facility] and is in process of obtaining section 8 voucher, anticipating apt will be available soon. Her outsole caser w/section 8 is Maryam Iglesias. Pt said her son has also been staying with her recently at the [facility]'s. Pt asked about being able to do a respite stay when she dc's from hospital especially if she is going to be on oxygen. Discussed with hospitalist,Yoly Laguerre. Will see how pt does over next day or two and plan for dc which may involve respite stay at [facility]. DYLAN w/f. Date Signed: 05/20/2017 04:34 PM Electronically Signed By:Krystal Tang RN
[2017-05-20] MEDS: traZODone 100 MG TAB PO SCH (21:01)
[2017-05-20] MEDS: DOCUSATE SODIUM 100 MG CAP PO SCH (21:01)
[2017-05-20] MEDS: QUEtiapine FUMARATE 50 MG TAB PO SCH (21:02)
[2017-05-20] MEDS: clonazePAM 1 MG TAB PO SCH (21:02)
[2017-05-21] MEDS: IPRATROPIUM/ALBUTEROL 3 ML DEYVIAL IH SCH ×4 (07:05→21:29)
[2017-05-21] MEDS: LITHIUM CARBONATE ER 300 MG TAB PO SCH ×2 (08:54→21:06)
[2017-05-21] MEDS: NICOTINE 21 MG/24 HR PATCH TD SCH (08:54)
[2017-05-21] MEDS: ASCORBIC ACID 500 MG TAB PO SCH (08:55)
[2017-05-21] MEDS: busPIRone 10 MG TAB PO SCH ×3 (08:55→21:06)
[2017-05-21] MEDS: LEVOTHYROXINE 25 MCG TAB PO SCH (08:55)
[2017-05-21] MEDS: ESTROPIPATE 0.75 MG TAB PO SCH (08:55)
[2017-05-21] MEDS: predniSONE 20 MG TAB PO SCH (08:55)
[2017-05-21] MEDS: METOPROLOL SUCCINATE XR 25 MG TAB PO SCH (10:59)
--- NOTE | 2017-05-21 11:11 | HOSPPROG ---
Hospitalist Progress Note Assessment/Plan: 46y female with c/o SOB. D/W RN and CM. #CHF cont lasix BNP better #Hypotension fluid bolus given close following given above responding to fluid #AHRF no abx given procalcitonin stable cont prednisone cont lasix multifactorial #Elevated trop chronic, stable no CP no EKG changes #COPD exacerbation cont steroids #Vince see ECHO consider cards consult if not improving #Bipolar cont meds #Homeless reviewed with CM #Tobacco abuse patch, cessation #Dispo Likely DC in am to nursing home requires further in hospital evaluation and treatment Subjective: Still feeling weak and dizzy. Objective: Vital Signs Temp Pulse Resp BP Pulse Ox 37.0 C 96 16 120/77 93 05/21/17 07:45 05/21/17 10:59 05/21/17 07:45 05/21/17 10:59 05/21/17 11:01 05/20/17 05/21/17 05/22/17 05:59 05:59 05:59 Intake Total 1500 Balance 1500 - Physical Exam Constitutional: chronically ill appearing, obese Eyes: PERRL, anicteric sclera Ears, Nose, Mouth, Throat: moist mucous membranes, hearing normal Cardiovascular: No JVD, No edema Respiratory: no respiratory distress, reduced air movement Gastrointestinal: No tenderness, No ascites Skin: warm, normal color Musculoskeletal: no joint effusions, generalized weakness Neurologic: AAOx3 Psychiatric: not anxious, not encephalopathic, poor judgement ICD10 Worksheet Patient Problems: Problems Problem Status Onset Psychosis Acute Shortness of breath Acute Apnea Acute Acute psychosis Acute Bipolar disorder Acute Dyspnea on exertion Acute Bronchitis Acute Hypoxia Acute Reactive airway disease Acute
[2017-05-21] MEDS: FUROSEMIDE 20 MG TAB PO SCH (12:11)
[2017-05-21] MEDS: LORazepam 0.5 MG TAB PO PRN (14:53)
--- NOTE | 2017-05-21 15:41 | ASMTCMCOM ---
CM Note CM Note Notes: Chart reviewed. Spoke with PA, patient is likely to wean off oxygen and not need any at discharge. Patient has been inquiring about a respite stay at a hotel upon discharge. I met with her and informed her that certain criteria is needed to qualify for respite and that the case management division would make that determination tomorrow. She is also inquiring about xtra clothing from our loan closet. She is in need of 1X clothing. Current plan of care is to wean oxygen and discharge patient to the intermediate tomorrow. CM to follow. Date Signed: 05/21/2017 03:40 PM Electronically Signed By:Nicci Contreras RN
[2017-05-21] MEDS: QUEtiapine FUMARATE 50 MG TAB PO SCH (21:04)
[2017-05-21] MEDS: clonazePAM 1 MG TAB PO SCH (21:05)
[2017-05-21] MEDS: traZODone 100 MG TAB PO SCH (21:05)
[2017-05-21] MEDS: DOCUSATE SODIUM 100 MG CAP PO SCH (21:06)
[2017-05-21 23:06] VITALS: TEMP 98.4
[2017-05-22] MEDS: IPRATROPIUM/ALBUTEROL 3 ML DEYVIAL IH SCH ×3 (05:34→15:31)
[2017-05-22] MEDS: FUROSEMIDE 20 MG TAB PO SCH (08:35)
[2017-05-22] MEDS: ESTROPIPATE 0.75 MG TAB PO SCH (08:35)
[2017-05-22] MEDS: ASCORBIC ACID 500 MG TAB PO SCH (08:36)
[2017-05-22] MEDS: LEVOTHYROXINE 25 MCG TAB PO SCH (08:36)
[2017-05-22] MEDS: busPIRone 10 MG TAB PO SCH ×2 (08:42→15:09)
[2017-05-22] MEDS: LITHIUM CARBONATE ER 300 MG TAB PO SCH (08:42)
[2017-05-22] MEDS: predniSONE 20 MG TAB PO SCH (08:42)
[2017-05-22] MEDS: NICOTINE 21 MG/24 HR PATCH TD SCH (08:42)
[2017-05-22 09:32] VITALS: BP 123/69
[2017-05-22] MEDS: METOPROLOL SUCCINATE XR 25 MG TAB PO SCH (09:32)
[2017-05-22] MEDS ORDERED: POLYETHYLENE GLYCOL 3350 17 GM PKT PO ONE (12:50)
[2017-05-22] MEDS: LORazepam 0.5 MG TAB PO PRN (15:09)
[2017-05-22 15:30] VITALS: PULSE 88; RESP 16; O2SAT 93
--- NOTE | 2017-05-22 17:12 | ASMTCMCOM ---
CM Note CM Note Notes: Spoke with patient who does not want to return to [facility] because her son is there and she does not feel safe with him. Patient claims he is intimidating and the relationship is brand new since he was raised by an adoptive family in [place]. Discussed how he is 22 and healthy and can find temporary accomodations for the next 2 nights easier than she can. Patient states she wants to see if there is a safehouse she can stay at. Checked with both the [facility] and [place] safehouses and they are full. Patient agreed to go to the crisis walk in clinic with [facility]. She is an open client there and they can do an assessment for [facility]. Patient's apartment is available May 24, 2017 for her to move in. This was confirmed by her [facility] behavioral health case manager, Mary Beth Foster([phone]). Patient was given two medications she needs to have without interruption. She was provided with a taxi voucher to take her directly to the walk in crisis clinic where she can pursue [facility]. Patient will move in to her apartment May. Patient can also return to [facility] if [facility] cannot take her.Patient to be d/c'ed today. Date Signed: 05/22/2017 05:11 PM Electronically Signed By:Magalis Meraz LCSW
--- NOTE | 2017-05-22 22:32 | GDS ---
[f rep st] DISCHARGE SUMMARY DISCHARGE DIAGNOSES: 1. Congestive heart failure. 2. Acute hypoxemic respiratory failure. 3. Chronic obstructive pulmonary disease exacerbation. 4. Hypotension. 5. Chronically elevated troponin. 6. Hypertrophic obstructive cardiomyopathy. 7. Bipolar disorder. 8. Homeless. STUDIES AND PROCEDURES DONE: Echocardiogram. PHYSICAL EXAM: GENERAL: The patient is alert. VITAL SIGNS: Afebrile. Pulse is 79, respiratory rate is 18, blood pressure is 123/69, she is saturating greater than 90% on room air. I have seen and evaluated the patient on the day of discharge. HOSPITAL COURSE: The patient is a 46-year-old female, presents to the emergency room with complaints of shortness of breath. She was evaluated and diagnosed with. 1. Congestive heart failure. The patient normally takes 20 mg of Lasix daily. She missed a dose of Lasix and will be treated with diuretics. Her condition is improved. Her BNP is better. She does have underlying cardiac disease that will require senior treasury analyst in the outpatient setting. 2. Hypotension. This is improved with a small fluid bolus in the setting of diuresis. 3. Acute hypoxemic respiratory failure. This has resolved and multifactorial. She is saturating greater then 90% on room air. She is stating that she feels like she needs supplemental oxygen however her evaluation here does not indicate that. 4. Chronically elevated troponin. The patient's troponin is at her baseline with no complaints of chest pain or EKG changes. 5. Chronic obstructive pulmonary disease exacerbation. The patient has been placed on oral steroids. A prescription has been provided for at the time of disposition. It is recommended she follow up with her fire captain marine, Dr. Herman in the outpatient setting. She occasionally becomes wheezy after smoking. 6. [place]. Echocardiogram is done during this hospitalization. She does appear to have stable heart function. I have encouraged her to follow up with her senior treasury analyst outside the hospital. 7. Bipolar. Home medications have been continued. 8. Homelessness. Case Management has been working with the patient. We have spent an extended amount of time establishing resources for her. She is due to get housing starting May 24. 9. Tobacco abuse. Nicotine patch was used during this hospital course. Patient has received extensive education but will continue to smoke once discharged from the hospital. 10. Social stressors. Again, case management has been involved with this patients discharge plan. She has extensive follow up arranged outside the hospital. She is likely to return to the hospital as she has stated she does not feel ready to leave and does not want to be at the [facility]. DISPOSITION: The patient will be discharged to the Crisis Center for further resources and management. There are no pending studies. MEDICATIONS: The patient is no longer requiring supplemental oxygen. She has been provided Lasix as well as prednisone prior to discharge. Her other prescriptions have been sent to [facility] and she can pick them up there. FOLLOW UP: Followup will be with her primary care physician, Dr. Favio Darden as well as her fire captain marine Dr. Herman and her senior treasury analyst. TIME SPENT: I have spent greater than 35 minutes in the care, coordination, and management of this patient's disposition and discussion with the casework manager as well as her primary care physician. /[id number]/MODL MTDD
[2017-05-28] MEDS ORDERED: PALIPERIDONE PALMITATE 117 MG/0.75 ML SYR IM SCH (09:00)
== END 2017-05-22 16:20 | disposition home or self-care (01) | DRG 291 ==
LOC: CED 09:28 → CEDHOLD 11:22 → F3N 13:04 → OBSVTOIN 05-20 14:27
PROVIDERS: ADMIT Student in an Organized Health Care Education/Training Program; ATTEND Student in an Organized Health Care Education/Training Program
DX: I11.0 Hypertensive heart disease with heart failure (principal); I50.9 Heart failure, unspecified; J44.1 Chronic obstructive pulmonary disease with (acute) exacerbation; J96.20 Acute and chronic respiratory failure, unspecified whether with hypoxia or hypercapnia; I42.1 Obstructive hypertrophic cardiomyopathy; F25.0 Schizoaffective disorder, bipolar type; Z59.0 Homelessness; F17.210 Nicotine dependence, cigarettes, uncomplicated
CPT/HCPCS: 71020-PO; 80048-PO; 83880-PO; 84484-PO; 85025-PO; 96374; G0378; J1940

== ENCOUNTER 2017-05-23 06:18 | Observation (INO) | payer OTHER, MEDICAID ==
[2017-05-23] MEDS ORDERED: IPRATROPIUM/ALBUTEROL 3 ML DEYVIAL IH ONE (06:24)
--- NOTE | 2017-05-23 06:29 | EDPHY ---
H & P HPI/ROS: HPI CHIEF COMPLAINT: Shortness of breath, wheezing HISTORY OF PRESENT ILLNESS: This patient very pleasant 46-year-old female she is homeless, she presents emergency room by ambulance from the [facility], where she has been staying at this evening. She was just recently released from the hospital on May 22 or yesterday. She tells me she is on prednisone. Last night she became more short of breath with wheezing and coughing. Denies any significant chest pain or fever. Due to the ongoing wheezing and shortness of breath she cannot catch her breath she decided come the emergency room. Upon arrival to the emergency room is noted that her room air pulse ox 85%. She does have wheezing throughout all lung gamble. Past Medical History: CHF, hypoxic respiratory failure, COPD, bipolar disorder , homelessness, chronically elevated troponin Past Surgical History: No recent surgery Social History: Homeless, denies daily use of drugs or alcohol. Does smoke tobacco. 2 cigarettes per day. Family History: Noncontributory ROS REVIEW OF SYSTEMS: A comprehensive 10 point review of systems is otherwise negative aside from elements mentioned in the history of present illness. Exam Constitutional appears nontoxic no acute distress, triage nursing summary reviewed, vital signs reviewed, awake/alert. Eyes normal conjunctivae and sclera, EOMI, PERRLA. HENT normal inspection, atraumatic, moist mucus membranes, no epistaxis, neck supple/ no meningismus, no raccoon eyes. Respiratory decreased breath sounds bilaterally, faint wheezing throughout lung gamble. No distress. Cardiovascular rate normal, regular rhythm, no murmur, no edema, distal pulses normal. Gastrointestinal soft, non-tender, no rebound, no guarding, normal bowel sounds, no distension, no pulsatile mass. Genitourinary no CVA tenderness. Musculoskeletal no midline vertebral tenderness, full range of motion, no calf swelling, no tenderness of extremities, no meningismus, good pulses, neurovascularly intact. Skin pink, warm, & dry, no rash, skin atraumatic. Neurologic awake, alert and oriented x 3, AAOx3, moves all 4 extremities equally, motor intact, sensory intact, CN II-XII intact, normal cerebellar, normal vision, normal speech. Psychiatric normal mood/affect. Heme/Lymph/Immune no lymphadenopathy. Differential Diagnosis: Includes but is not limited to in a particular order COPD exacerbation, reactive airway disease, CHF, pneumonia Medical Decision Making: Plan for this patient chest x-ray, DuoNeb breathing treatment, she is already on steroids, check EKG and basic blood work. She denies any chest pain however is wheezing and short of breath will treat for COPD exacerbation at this time. Re-evaluation: 0628: This patient's initial room air saturation was 85%. Will give DuoNeb breathing treatment. Check chest x-ray. Patient may need to be readmitted back to the hospital for COPD exacerbation hypoxia. She has very poor social situation. She is not on any oxygen at this time does not have oxygen available to her. EKG interpretation by me on record in [employer] system. Impression: Sinus rhythm rate of 81. Abnormal T-wave abnormality from V5 V6. Acutely new change from previous EKG dated 05/19/2017 Chest x-ray reviewed one-view. No pneumothorax. No evidence of acute failure. Haziness left lower lobe. Patient noted to be hypoxic 85%. Abnormal EKG however she has previously had these T-wave inversions and ST segment flattening in her lateral leads. She will need to be admitted to the hospital for hypoxia COPD exacerbation. I have ordered her IV Solu-Medrol she did not get her dose of prednisone today. Additionally I have ordered her doxycycline. She does have some haziness in her left lower lobe. On her chest x-ray. I do understand that she was just discharged from the hospital yesterday however she is homeless and does not have availability of oxygen at this time. She will need to be readmitted for COPD exacerbation, hypoxia. 0649: I spoke with the hospitalist service they have agreed to readmit this patient back to the hospital. Spoke with Dr. Burns. Patient is currently hemodynamically stable on supplemental oxygen 2 L getting a DuoNeb breathing treatment. No distress. Blood work is pending. Source: Patient, EMS - Medical/Surgical History Hx Asthma: No Hx Chronic Respiratory Disease: No Hx Diabetes: No Hx Cardiac Disease: No Hx Renal Disease: No Hx Cirrhosis: No Hx Alcoholism: No Hx HIV/AIDS: No Hx Splenectomy or Spleen Trauma: No Other PMH: Bipolar, schizophrenia. COPD. HTN. Myocardial Infarction. Fibromyalgia. Polyneuropathies. Arthritis. Agranulocytosis - Social History Smoking Status: Current every day smoker Constitutional: Initial Vital Signs Temperature (C) 36.6 C 05/23/17 06:21 Heart Rate 80 10/31/17 06:21 Respiratory Rate 20 05/23/17 06:21 Blood Pressure 123/86 H 05/23/17 06:21 O2 Sat (%) 85 L 05/23/17 06:21 O2 Delivery Mode Room Air O2 (L/minute) 2 Allergies/Adverse Reactions: carbamazepine [From Tegretol] Allergy (Verified 05/23/17 06:26) cefaclor [From Ceclor] Allergy (Verified 05/23/17 06:26) Cephalosporins Allergy (Verified 05/23/17 06:26) clozapine [From Clozaril] Allergy (Verified 05/23/17 06:26) lamotrigine Allergy (Verified 05/23/17 06:26) oxcarbazepine [From Trileptal] Allergy (Verified 05/23/17 06:26) Penicillins Allergy (Verified 05/23/17 06:26) Sulfa (Sulfonamide Antibiotics) Allergy (Verified 05/23/17 06:26) Thiazides Allergy (Verified 05/23/17 06:26) Home Medications: Medication Instructions Recorded Docusate Sodium [Colace 100 MG (*)] 100 mg PO HS #0 cap 11/02/16 Estropipate [Ogen 0.75 MG (*)] 0.75 mg PO DAILY #0 tab 11/02/16 Albuterol [Proventil Inhaler HFA 1 - 2 puffs IH Q4-6PRN PRN 01/26/17 (*)] Paliperidone Palmitate [Invega 117 mg SQ Q30D 01/26/17 Sustenna (RX)] Ascorbic Acid [Vitamin C 500 mg 500 mg PO DAILY 05/19/17 (*)] Levothyroxine [Synthroid 25 mcg 25 mcg PO DAILY 05/19/17 (*)] QUEtiapine FUMARATE [Seroquel 50 50 mg PO HS 05/19/17 mg (*)] celeCOXIB [Celebrex (*)] 200 mg PO DAILY 05/19/17 Acetaminophen [Tylenol 325mg (*)] 650 mg PO Q4HRS PRN tab 05/22/17 Furosemide [Lasix 40 MG (*)] 40 mg PO DAILY #4 tab 05/22/17 [place] Carbonate ER [Lithobid 300 300 mg PO BID #60 tab 05/22/17 mg (*)] Metoprolol Succinate Xr [Toprol Xl 12.5 mg PO DAILY #30 tab 05/22/17 25 mg (*)] Nicotine [Nicoderm Cq 21 mg (*)] 21 mg TD DAILY patch 05/22/17 busPIRone [Buspar (*)] 10 mg PO TID #30 tab 05/22/17 clonazePAM [klonoPIN (*)] 1 mg PO HS #10 tab 05/22/17 predniSONE 40 mg PO DAILY #8 tablet 05/22/17 traZODone [traZODONE 100MG (*)] 200 mg PO HS #10 tab 05/22/17 Medical Decision Making - Data Points Medications Given: Discontinued Medications Albuterol/Ipratropium (Duoneb) 3 ml IH EDNOW ONE Stop: 05/23/17 06:25 Last Admin: 05/23/17 06:38 Dose: 3 ml Methylprednisolone Sodium Succinate (Solu-Medrol) 125 mg IVP EDNOW ONE Stop: 05/23/17 06:40 Last Admin: 05/23/17 06:47 Dose: 125 mg Departure - Departure Disposition: [facility] Acute Clinical Impression: Hypoxia, Chronic obstructive pulmonary disease with acute exacerbation Condition: Fair Referrals: Patient,NotPresent [Primary Care Provider] - As per Instructions
--- NOTE | 2017-05-23 06:32 | CPEKG ---
Heart Rate: 81 RR Interval: 741 P-R Interval: 148 QRSD Interval: 98 QT Interval: 400 QTC Interval: 465 P Waelder: 74 QRS Waelder: -47 T Wave Waelder: 129 EKG Severity - ABNORMAL ECG - EKG Impression: SINUS RHYTHM EKG Impression: LEFT ANTERIOR FASCICULAR BLOCK EKG Impression: LVH WITH SECONDARY REPOLARIZATION ABNORMALITY EKG Impression: ABNORMAL T, PROBABLE ISCHEMIA, LATERAL LEADS Electronically Signed By: Leonel Rivera 23-May-2017 06:41:03
[2017-05-23] MEDS ORDERED: methylPREDNISolone SOD SUCC 125 MG/2 ML VIAL IVP ONE (06:39)
[2017-05-23] MEDS ORDERED: ACETAMINOPHEN 325 MG TAB PO PRN (06:50)
[2017-05-23] MEDS ORDERED: ONDANSETRON DISINTEGRATING 4 MG TAB PO PRN (06:50)
[2017-05-23] MEDS ORDERED: ONDANSETRON 4 MG/2 ML VIAL IVP PRN (06:50)
[2017-05-23] MEDS ORDERED: ALBUTEROL 3 ML DEYVIAL IH PRN (06:50)
[2017-05-23 06:56] LABS: PLATELET COUNT 216 10^3/uL (150-400)
--- NOTE | 2017-05-23 06:59 | PDGENHP ---
History and Physical - Chief Complaint Shortness of Breath - History of Present Illness 46 yo F w/ COPD, HOCM HFpEF, BPD, homelessness, and recent admission for multifactorial AHRF presents with acute shortness of breath. Patient brought in by EMS due to severe SOB. In the ED patient was noted to have diffuse wheezing and was treated with steroids, antibiotics, and nebulizations with improvement. Additionally, she was noted to be hypoxic and was therefore admitted for further treatment. Patient was discharged yesterday and felt well upon leaving. However, she is homeless and was exposed to the cold air and smoked a few cigarettes, which could have exacerbated her respiratory disease. She denies infectious symptoms or chest pain. History Information - Allergies/Home Medication List Allergies/Adverse Reactions: carbamazepine [From Tegretol] Allergy (Verified 05/23/17 06:26) cefaclor [From Ceclor] Allergy (Verified 05/23/17 06:26) Cephalosporins Allergy (Verified 05/23/17 06:26) clozapine [From Clozaril] Allergy (Verified 05/23/17 06:26) lamotrigine Allergy (Verified 05/23/17 06:26) oxcarbazepine [From Trileptal] Allergy (Verified 05/23/17 06:26) Penicillins Allergy (Verified 05/23/17 06:26) Sulfa (Sulfonamide Antibiotics) Allergy (Verified 05/23/17 06:26) Thiazides Allergy (Verified 05/23/17 06:26) Home Medications: Albuterol [Proventil Inhaler HFA (*)] 1 - 2 puffs IH Q4-6PRN PRN 01/26/17 [Last Taken Unknown] Paliperidone Palmitate [Invega Sustenna (RX)] 117 mg SQ Q30D 01/26/17 [Last Taken Unknown] Ascorbic Acid [Vitamin C 500 mg (*)] 500 mg PO DAILY 05/19/17 [Last Taken Unknown] Levothyroxine [Synthroid 25 mcg (*)] 25 mcg PO DAILY 05/19/17 [Last Taken ] QUEtiapine FUMARATE [Seroquel 50 mg (*)] 50 mg PO HS 05/19/17 [Last Taken ] celeCOXIB [Celebrex (*)] 200 mg PO DAILY 05/19/17 [Last Taken 05/18/17] I have personally reviewed and updated: family history, medical history - Past Medical History CHF, COPD Additional medical history: Bipolar disorder. HOCM - Family History Positive for: cancer - Social History Smoking Status: Current every day smoker Additional social history: Homeless Review of Systems Review of Systems: ROS: 10pt was reviewed & negative except for what was stated in HPI & below Physical Exam Physical Exam: Temp Pulse Resp BP Pulse Ox 36.6 C 80 20 123/86 H 96 05/23/17 06:21 05/23/17 06:21 05/23/17 06:21 05/23/17 06:21 05/23/17 06:26 Lab Data & Imaging Review 05/23/17 06:48 05/23/17 06:48 Visualized and Interpreted Chest x-ray results: Yes Chest X-Ray results: no infiltrate Visualized and Interpreted EKG results: Yes EKG Interpretation: Positive for: ST depression (Lateral leads) Assessment & Plan Assessment: 46 yo F w/ COPD, HOCM HFpEF, BPD, homelessness, and recent admission for multifactorial AHRF presents with acute shortness of breath most likely 2/2 COPD exacerbation. Plan: 1. COPD w/ acute exacerbation - Diffuse wheezing noted upon arrival in the ED. Improved work of breathing with steroids, antibiotics, and methylprednisone. Could have been triggered by cigarettes and exposure to cold air noting homelessness. Denies infectious symptoms and shortness of breath. - Duonebs terry q6h, albuterol q2h PRN - Azithromyin, prednisone x5 days 2. AHRF - Mild, requiring 2L on admission and most likely 2/2 above. 3. HFpEF, HOCM - Recently admitted with mild exacerbation, discharged with BB and furosemide 40 mg PO. TTE from last admission shows preserved EF, diastolic dysfunction, and known LVOT 2/2 HOCM. 4. BPD - Continue home medications, need reconciliation Diet - Regular Code - Full Ppx - LMWH Dispo - Admit to observation status
[2017-05-23] MEDS ORDERED: AZITHROMYCIN 250 MG TAB PO ONE ×2 (07:24→09:00)
[2017-05-23] MEDS ORDERED: DOXYCYCLINE INJ 100 MG in NS 250 ML IV SCH (09:00)
[2017-05-23] MEDS: predniSONE 20 MG TAB PO SCH (09:24)
[2017-05-23] MEDS: ENOXAPARIN 40 MG/0.4 ML SYR SC SCH (09:25)
[2017-05-23] MEDS: IPRATROPIUM/ALBUTEROL 3 ML DEYVIAL IH SCH ×3 (11:39→21:27)
[2017-05-23] MEDS ORDERED: ALBUTEROL 60 PUFFS/8 GM MDI IH PRN (12:31)
[2017-05-23] MEDS ORDERED: ALBUTEROL 200 PUFFS/18 GM MDI IH PRN (12:40)
[2017-05-23] MEDS: FUROSEMIDE 40 MG TAB PO SCH (14:49)
[2017-05-23] MEDS: LITHIUM CARBONATE ER 300 MG TAB PO SCH ×2 (14:50→20:47)
[2017-05-23] MEDS: METOPROLOL SUCCINATE XR 25 MG TAB PO SCH (14:50)
[2017-05-23] MEDS: busPIRone 10 MG TAB PO SCH ×2 (15:06→21:00)
[2017-05-23] MEDS: NICOTINE 21 MG/24 HR PATCH TD SCH (18:31)
[2017-05-23] MEDS ORDERED: clonazePAM 1 MG TAB PO SCH (21:00)
[2017-05-23] MEDS ORDERED: DOCUSATE SODIUM 100 MG CAP PO SCH (21:00)
[2017-05-23] MEDS ORDERED: traZODone 100 MG TAB PO SCH (21:00)
[2017-05-23] MEDS ORDERED: QUEtiapine FUMARATE 50 MG TAB PO SCH (21:00)
[2017-05-24] MEDS: IPRATROPIUM/ALBUTEROL 3 ML DEYVIAL IH SCH ×2 (05:50→10:04)
[2017-05-24 07:23] VITALS: BP 115/70; PULSE 73; RESP 16; TEMP 98.3; O2SAT 90
[2017-05-24] MEDS: FUROSEMIDE 40 MG TAB PO SCH (08:44)
[2017-05-24] MEDS: LITHIUM CARBONATE ER 300 MG TAB PO SCH (08:44)
[2017-05-24] MEDS: METOPROLOL SUCCINATE XR 25 MG TAB PO SCH (08:45)
[2017-05-24] MEDS: predniSONE 20 MG TAB PO SCH (08:45)
[2017-05-24] MEDS: busPIRone 10 MG TAB PO SCH (08:46)
[2017-05-24] MEDS: ENOXAPARIN 40 MG/0.4 ML SYR SC SCH (08:47)
[2017-05-24] MEDS ORDERED: LEVOTHYROXINE 25 MCG TAB PO SCH (09:00)
[2017-05-24] MEDS ORDERED: AZITHROMYCIN 250 MG TAB PO SCH (09:00)
[2017-05-24] MEDS ORDERED: ESTROPIPATE 0.75 MG TAB PO SCH (09:00)
[2017-05-24] MEDS ORDERED: predniSONE 20 MG TAB PO SCH (09:00)
[2017-05-24] MEDS ORDERED: ASCORBIC ACID 500 MG TAB PO SCH (09:00)
[2017-05-24] MEDS: NICOTINE 21 MG/24 HR PATCH TD SCH (09:43)
--- NOTE | 2017-05-24 11:40 | ASMTCMCOM ---
CM Note CM Note Notes: 05/24/2017 Case Management Note Met w/pt and son. Pt requested cab voucher to [facility] located at [address] [place] [address] in [place] to obtain meds and fill a money order for deposit on apartment. Pt reports completing the new homeless detention coordinated entry program and that housing has been secured once the deposit is made today at 3 pm. Pt unsure of address for new apartment. Case Management arranged a ride through [employer]. Date Signed: 05/24/2017 11:39 AM Electronically Signed By:Leilani Leal RN
--- NOTE | 2017-05-24 11:40 | ASMTCMCOM ---
CM Note CM Note Notes: 05/24/2017 Case Management Note Met w/pt and son. Pt requested cab voucher to [facility] located at [address] [place] [address] in [place] to obtain meds and fill a money order for deposit on apartment. Pt reports completing the new homeless alf coordinated entry program and that housing has been secured once the deposit is made today at 3 pm. Pt unsure of address for new apartment. Case Management arranged a ride through [employer]. Date Signed: 05/24/2017 11:39 AM Electronically Signed By:Leilani Leal RN
--- NOTE | 2017-05-24 11:40 | ASDISCHSUM ---
Discharge Information Plan Status:Homeless/Jail Medically Cleared to Leave:05/24/2017 Discharge Date:05/24/2017 11:18 AM CM D/C Disposition:Home, Routine, Self-Care ADT D/C Disposition:Home, Routine, Self-Care Projected Discharge Date:05/24/2017 11:18 AM Transportation at D/C:Cab Voucher Discharge Delay Reason: Follow-Up Date:05/24/2017 11:18 AM Discharge Slot: Final Diagnosis: Placement Information Patient Contact Information Contact Name:HAOAPURVASUKHJINDER Relationship:Son Address: Work Phone: City: [facility] Phone: State/[employer] Medical Code: Email: Financial Information Financial Class: Primary Plan Desc:MEDICARE OUTPATIENT Primary Plan Number:[id number] Secondary Plan Desc:MEDICAID HEALTH FIRST CO OP Secondary Plan Number:[id number] Assessment Information [facility] CM Progress Note CM Note CM Note Notes: 05/24/2017 Case Management Note Met w/pt and son. Pt requested cab voucher to [facility] located at [address] [place] [address] to obtain meds and fill a money order for deposit on apartment. Pt reports completing the new homeless longterm coordinated entry program and that housing has been secured once the deposit is made today at 3 pm. Pt unsure of address for new apartment. Case Management arranged a ride through [employer]. Date Signed: 05/24/2017 11:39 AM Electronically Signed By:Leilani Leal RN Intervention Information Intervention Type:*SUNI-Signed Date of Service:05/24/2017 09:50 AM Patient Type:Observation Staff Member:Melissa Rios Hours: Discipline: Severity: Comment: Intervention Type:Cab Vouchers Date of Service:05/24/2017 11:39 AM Patient Type:Observation Staff Member:ERNA Leal Hillary Hours: Discipline: Severity: Comment:
--- NOTE | 2017-05-24 11:40 | ASDISCHSUM ---
Discharge Information Plan Status:Homeless/Chcf Medically Cleared to Leave:05/24/2017 Discharge Date:05/24/2017 11:18 AM CM D/C Disposition:Home, Routine, Self-Care ADT D/C Disposition:Home, Routine, Self-Care Projected Discharge Date:05/24/2017 11:18 AM Transportation at D/C:Cab Voucher Discharge Delay Reason: Follow-Up Date:05/24/2017 11:18 AM Discharge Slot: Final Diagnosis: Placement Information Patient Contact Information Contact Name:HAOAPURVASUKHJINDER Relationship:Son Address: Work Phone: City: [facility] Phone: State/[place] Code: Email: Financial Information Financial Class: Primary Plan Desc:MEDICARE OUTPATIENT Primary Plan Number:[id number] Secondary Plan Desc:MEDICAID HEALTH FIRST [place] OP Secondary Plan Number:[id number] Assessment Information [facility] CM Progress Note CM Note CM Note Notes: 05/24/2017 Case Management Note Met w/pt and son. Pt requested cab voucher to [facility] located at [address] [place] [address] to obtain meds and fill a money order for deposit on apartment. Pt reports completing the new homeless alf coordinated entry program and that housing has been secured once the deposit is made today at 3 pm. Pt unsure of address for new apartment. Case Management arranged a ride through [employer]. Date Signed: 05/24/2017 11:39 AM Electronically Signed By:Leilani Leal RN Intervention Information Intervention Type:*SUNI-Signed Date of Service:05/24/2017 09:50 AM Patient Type:Observation Staff Member:Melissa Rios Hours: Discipline: Severity: Comment: Intervention Type:Cab Vouchers Date of Service:05/24/2017 11:39 AM Patient Type:Observation Staff Member:ERNA Leal Hillary Hours: Discipline: Severity: Comment:
--- NOTE | 2017-05-24 11:40 | ASMTCMCOM ---
CM Note CM Note Notes: 05/24/2017 Case Management Note Met w/pt and son. Pt requested cab voucher to [facility] located at [address] [place] [address] in [place] to obtain meds and fill a money order for deposit on apartment. Pt reports completing the new homeless penitentiary coordinated entry program and that housing has been secured once the deposit is made today at 3 pm. Pt unsure of address for new apartment. Case Management arranged a ride through [employer]. Date Signed: 05/24/2017 11:39 AM Electronically Signed By:Leilani Leal RN
--- NOTE | 2017-05-24 11:40 | ASDISCHSUM ---
Discharge Information Plan Status:Homeless/Senior Care Medically Cleared to Leave:05/24/2017 Discharge Date:05/24/2017 11:18 AM CM D/C Disposition:Home, Routine, Self-Care ADT D/C Disposition:Home, Routine, Self-Care Projected Discharge Date:05/24/2017 11:18 AM Transportation at D/C:Cab Voucher Discharge Delay Reason: Follow-Up Date:05/24/2017 11:18 AM Discharge Slot: Final Diagnosis: Placement Information Patient Contact Information Contact Name:HAOAPURVASUKHJINDER Relationship:Son Address: Work Phone: City: [facility] Phone: State/[place] Code: Email: Financial Information Financial Class: Primary Plan Desc:MEDICARE OUTPATIENT Primary Plan Number:[id number] Secondary Plan Desc:MEDICAID HEALTH FIRST CO OP Secondary Plan Number:[id number] Assessment Information [facility] CM Progress Note CM Note CM Note Notes: 05/24/2017 Case Management Note Met w/pt and son. Pt requested cab voucher to [facility] located at [address] [place] [address] to obtain meds and fill a money order for deposit on apartment. Pt reports completing the new homeless prison coordinated entry program and that housing has been secured once the deposit is made today at 3 pm. Pt unsure of address for new apartment. Case Management arranged a ride through [employer]. Date Signed: 05/24/2017 11:39 AM Electronically Signed By:Leilani Leal RN Intervention Information Intervention Type:*SUNI-Signed Date of Service:05/24/2017 09:50 AM Patient Type:Observation Staff Member:Melissa Rios Hours: Discipline: Severity: Comment: Intervention Type:Cab Vouchers Date of Service:05/24/2017 11:39 AM Patient Type:Observation Staff Member:ERNA Leal Hillary Hours: Discipline: Severity: Comment:
--- NOTE | 2017-05-24 18:32 | PDDCSUM ---
Discharge Summary Discharge Summary: DISCHARGE DIAGNOSES: -acute hypoxemic respiratory failure, likely due to COPD exacerbation with exposure to cigarettes and cold air outdoors -recent episode of decompensated congestive heart failure, stable and compensated at the time of this admission -bipolar disorder, stable on therapies -hyper trophic obstructive cardiomyopathy, stable -homelessness HOSPITAL COURSE SUMMARY: This patient had just been in the hospital with an episode of congestive heart failure and had responded well at that time with diuresis. She was discharged from the hospital to [place] which is where she is currently living. She smokes cigarettes and state out in the cold came back in with worsening shortness of breath. She had no evidence of heart failure, pneumonia or other infectious process, thromboembolic disease. She was felt to have exacerbation of her chronic lung disease and was treated appropriately. She responded well to steroid and bronchodilator here and by the time of discharge the next days feeling back to her baseline breathing. She is up walking the hallway breathing room air with good oxygen saturation eating well. PENDING TEST RESULTS: None MEDICATION CHANGES: Her prednisone is stained to a tapering dose otherwise medicines the same FOLLOW-UP PLAN: With her primary care physician within 1-2 weeks DISPOSITION: The patient has an appointment later this afternoon to meet with a government related housing issue regarding regarding apartment that she is hoping to move into in [place]. Greater than 35 minutes bedside and care coordination time today
--- NOTE | 2017-05-24 18:32 | PDDCSUM ---
Discharge Summary Discharge Summary: DISCHARGE DIAGNOSES: -acute hypoxemic respiratory failure, likely due to COPD exacerbation with exposure to cigarettes and cold air outdoors -recent episode of decompensated congestive heart failure, stable and compensated at the time of this admission -bipolar disorder, stable on therapies -hyper trophic obstructive cardiomyopathy, stable -homelessness HOSPITAL COURSE SUMMARY: This patient had just been in the hospital with an episode of congestive heart failure and had responded well at that time with diuresis. She was discharged from the hospital to [place] which is where she is currently living. She smokes cigarettes and state out in the cold came back in with worsening shortness of breath. She had no evidence of heart failure, pneumonia or other infectious process, thromboembolic disease. She was felt to have exacerbation of her chronic lung disease and was treated appropriately. She responded well to steroid and bronchodilator here and by the time of discharge the next days feeling back to her baseline breathing. She is up walking the hallway breathing room air with good oxygen saturation eating well. PENDING TEST RESULTS: None MEDICATION CHANGES: Her prednisone is stained to a tapering dose otherwise medicines the same FOLLOW-UP PLAN: With her primary care physician within 1-2 weeks DISPOSITION: The patient has an appointment later this afternoon to meet with a government related housing issue regarding regarding apartment that she is hoping to move into in [place]. Greater than 35 minutes bedside and care coordination time today
== END 2017-05-24 11:18 | disposition home or self-care (01) ==
LOC: EDUNIT# → INTOOBSV 06:46 → F2W 08:19
PROVIDERS: ADMIT Student in an Organized Health Care Education/Training Program; ATTEND Student in an Organized Health Care Education/Training Program
DX: J96.01 Acute respiratory failure with hypoxia (principal); J44.9 Chronic obstructive pulmonary disease, unspecified; I50.9 Heart failure, unspecified; F31.9 Bipolar disorder, unspecified; I42.1 Obstructive hypertrophic cardiomyopathy; F17.210 Nicotine dependence, cigarettes, uncomplicated; Z59.0 Homelessness
CPT/HCPCS: 71010; 93005; 96374; 99285; G0378; J1650

== ENCOUNTER 2017-06-06 16:30 | Emergency (ER) | payer OTHER, MEDICAID ==
--- NOTE | 2017-06-06 16:34 | EDPHY ---
H & P HPI/ROS: HPI CHIEF COMPLAINT: Suicidal ideation HISTORY OF PRESENT ILLNESS: Patient is a 46-year-old female well known to myself, she [facility], after she states that she was released from [facility] after a 72 hour hold for suicidal ideation. Patient states that she got a taxi cab back to her apartment in [place] from [place] and when she arrived her son has been living with her and she states that her son moved in another roommate and she does not feel safe going back to her apartment. She was not assaulted. She left her apartment and came to our emergency room stating that she would like to go to a safe house tonight. She denies being suicidal or homicidal at this time. She denies wanting to hurt herself or anybody else. However she does state that if she cannot get to a safe-house tonight she may start thinking about being suicidal. I specifically asked her if she is suicidal at this time and she denies. Her main objective at this time is to go to a safe-house. She does deny that her son or his roomate has threatened her however she does not feel safe and would like to go somewhere else. Past Medical History: Significant medical history for chronic heart failure, COPD, bipolar disorder, homelessness Past Surgical History: No recent surgery. Social History: Denies daily use of drugs or alcohol. Does smoke tobacco. Family History: Noncontributory. ROS REVIEW OF SYSTEMS: A comprehensive 10 point review of systems is otherwise negative aside from elements mentioned in the history of present illness. Exam Constitutional appears well nontoxic triage nursing summary reviewed, vital signs reviewed, awake/alert. Eyes normal conjunctivae and sclera, EOMI, PERRLA. HENT normal inspection, atraumatic, moist mucus membranes, no epistaxis, neck supple/ no meningismus, no raccoon eyes. Respiratory clear to auscultation bilaterally, normal breath sounds, no respiratory distress, no wheezing. Cardiovascular rate normal, regular rhythm, no murmur, no edema, distal pulses normal. Gastrointestinal soft, non-tender, no rebound, no guarding, normal bowel sounds, no distension, no pulsatile mass. Genitourinary no CVA tenderness. Musculoskeletal no midline vertebral tenderness, full range of motion, no calf swelling, no tenderness of extremities, no meningismus, good pulses, neurovascularly intact. Skin pink, warm, & dry, no rash, skin atraumatic. Neurologic awake, alert and oriented x 3, AAOx3, moves all 4 extremities equally, motor intact, sensory intact, CN II-XII intact, normal cerebellar, normal vision, normal speech. Psychiatric normal mood/affect. Denies suicidal or homicidal ideation. Heme/Lymph/Immune no lymphadenopathy. Differential Diagnosis: Includes but is not limited to in a particular order bipolar disorder, mood disorder, need for half-way, need for safe house. Medical Decision Making: Plan for this patient given that she is not suicidal not place her on a hold at this time however will try to get her to either half-way tonight or safe house. This her specific request. Re-evaluation: 1649: Jane UMANZOR, Spoke with Case Management: We will provide her with Safe House information. Patient is to call [facility] to arrange staying there tonight. Patient specifically has to set this up. Will provide contact info here in ER, and allow her to set it up from here and then hopefully arrange pickle pumper from here to [facility]. 180: After extensive time spent trying to get this patient a safe house nobody would take her. There is no availability at this time we tried extensively around the [facility] area additionally outside of the [facility]. After further discussion with the patient she states that she cannot deal with this she states that she is actively suicidal and that if she is released [facility] she will most likely ingest large amount of her medication. She states that if she is discharged from here she will become suicidal. Do this the patient be placed on M1 home. We will need to transfer her out of [facility] to an appropriate facility that can handle her as an M1 hold and have a mental health evaluation. 1810: Placement of M1 Hold at this time. Reason for m1 Hold, Suicidal ideation with a plan. 1828: Blood being drawn and urine drug screen. Sp[facility] with Dr. Paulson at [facility], he has accepted as transfer. EMTALA filled out. Appropriate Transfer will be set up. Patient calm/cooperative at this time, and would like to be transferred for Mental Health Eval. 1657: 06/07/17: I received 3:00 p.m. sign on this patient she is pending placement. She remains on M1 hold. One mental health facility requested we do an EKG. I performed the EKG she does not have any chest pain or shortness of breath. EKG interpretation by me on record in [employer] system. Impression time of EKG 164, this is sinus rhythm rate of 80 there is a left anterior fascicular block present. LVH present. Abnormal T-waves seen throughout multiple leads specifically V4 V5 V6. V3. And aVL and lead 1. This is unchanged from her previous EKG dated 05/23/2017. I do not appreciate acute change. This EKG was performed at the [facility]. She does not have any chest pain or shortness of breath with this EKG. Patient signed over to Dr. Ge at 11:00 p.m. shift change. Patient on M1 hold suicidal pending mental health placement. Source: Patient - Medical/Surgical History Hx Asthma: No Hx Chronic Respiratory Disease: Yes Hx Diabetes: No Hx Cardiac Disease: Yes Hx Renal Disease: No Hx Cirrhosis: No Hx Alcoholism: No Hx HIV/AIDS: No Hx Splenectomy or Spleen Trauma: No Other PMH: Bipolar, schizophrenia, COPD, HTN, CO, fibromyalgia, polyneuropathies , arthritis, Agranulocytosis - Social History Smoking Status: Current every day smoker Constitutional: Initial Vital Signs Temperature (C) 36.8 C 06/06/17 16:37 Heart Rate 90 06/06/17 16:37 Respiratory Rate 18 06/06/17 16:37 Blood Pressure 126/87 H 06/06/17 16:37 O2 Sat (%) 94 06/06/17 16:37 O2 Delivery Mode Room Air Allergies/Adverse Reactions: carbamazepine [From Tegretol] Allergy (Verified 05/23/17 06:26) cefaclor [From Ceclor] Allergy (Verified 05/23/17 06:26) Cephalosporins Allergy (Verified 05/23/17 06:26) clozapine [From Clozaril] Allergy (Verified 05/23/17 06:26) lamotrigine Allergy (Verified 05/23/17 06:26) oxcarbazepine [From Trileptal] Allergy (Verified 05/23/17 06:26) Penicillins Allergy (Verified 05/23/17 06:26) Sulfa (Sulfonamide Antibiotics) Allergy (Verified 05/23/17 06:26) Thiazides Allergy (Verified 05/23/17 06:26) Home Medications: Medication Instructions Recorded Estropipate [Ogen 0.75 MG (*)] 0.75 mg PO DAILY #0 tab 11/02/16 Albuterol [Proventil Inhaler HFA 1 - 2 puffs IH Q4-6PRN PRN 01/26/17 (*)] Paliperidone Palmitate [Invega 117 mg SQ Q30D 01/26/17 Sustenna (RX)] Levothyroxine [Synthroid 25 mcg 25 mcg PO DAILY 05/19/17 (*)] QUEtiapine FUMARATE [Seroquel 50 50 mg PO HS 05/19/17 mg (*)] celeCOXIB [Celebrex (*)] 200 mg PO DAILY 05/19/17 [place] Carbonate ER [Lithobid 300 300 mg PO BID #60 tab 05/22/17 mg (*)] Metoprolol Succinate Xr [Toprol Xl 12.5 mg PO DAILY #30 tab 05/22/17 25 mg (*)] clonazePAM [klonoPIN (*)] 1 mg PO HS #10 tab 05/22/17 traZODone [traZODONE 100MG (*)] 200 mg PO HS #10 tab 05/22/17 Nicotine [Nicoderm Cq 21 mg (*)] 16 mg TD DAILY 06/06/17 Docusate Sodium [Colace 100 MG (*)] 100 mg PO BID 06/07/17 Furosemide [Lasix 40 MG (*)] 20 mg PO DAILY 06/07/17 busPIRone [Buspar (*)] 20 mg PO BID 06/07/17 Medical Decision Making - Data Points Laboratory Results: Laboratory Results 06/06/17 18:30 06/06/17 18:30 Medications Given: Buspirone HCl (Buspar) 20 mg PO BID [facility] Stop: 12/04/17 08:59 Last Admin: 06/07/17 20:26 Dose: 20 mg [place] Carbonate (Lithobid) 300 mg PO BID DONTE Stop: 12/04/17 08:59 Last Admin: 06/07/17 20:28 Dose: 300 mg Trazodone HCl (Trazodone) 100 mg PO HS DONTE Stop: 12/04/17 20:59 Last Admin: 06/07/17 20:28 Dose: 100 mg Discontinued Medications Acetaminophen (Tylenol 160mg/5ml Oral Liquid) 650 mg PO EDNOW ONE Stop: 06/07/17 15:33 Last Admin: 06/07/17 15:37 Dose: Not Given Acetaminophen (Tylenol) 650 mg PO EDNOW ONE Stop: 06/07/17 15:37 Last Admin: 06/07/17 15:38 Dose: 650 mg Buspirone HCl (Buspar) 10 mg PO BID DONTE Stop: 12/04/17 08:59 Last Admin: 06/07/17 09:08 Dose: 10 mg Celecoxib (Celebrex) 200 mg PO EDNOW ONE Stop: 06/07/17 18:07 Last Admin: 06/07/17 18:40 Dose: 200 mg Clonazepam (Klonopin) 1 mg PO DAILY ONE Stop: 06/07/17 21:01 Last Admin: 06/07/17 20:27 Dose: 1 mg Docusate Sodium (Colace) 100 mg PO EDNOW ONE Stop: 06/07/17 19:31 Last Admin: 06/07/17 20:26 Dose: 100 mg Metoprolol Succinate (Toprol Xl) 12.5 mg PO EDNOW ONE Stop: 06/07/17 21:01 Last Admin: 06/07/17 20:27 Dose: 12.5 mg Nicotine (Nicoderm Cq) 21 mg TD EDNOW ONE Stop: 06/07/17 14:53 Last Admin: 06/07/17 14:56 Dose: 21 mg Departure - Departure Disposition: [facility] Clinical Impression: Suicidal ideation Bipolar disorder Qualifiers: Active/Remission status: remission status unspecified Qualified Code(s): F31.9 - Bipolar disorder, unspecified Condition: Good Instructions: Bipolar Disorder (ED) Additional Instructions: 1. Return emergency room if you have thoughts of wanting to hurt herself or anybody else. 2. We have provided you information for a safe house. Referrals: Favio Darden DO [Primary Care Provider] - As per Instructions
[2017-06-06 18:40] LABS: % IMMATURE GRANULYOCYTES 0.2 % (0.0-1.1); ABSOLUTE IMMATURE GRANULOCYTES 0.01 10^3/uL (0.00-0.10); ADD DIFF? NO; ADD MORPH? NO; ADD SCAN? NO; ATYPICAL LYMPHOCYTE FLAG 0 (0-99); FRAGMENT RBC FLAG 0 (0-99); HEMATOCRIT 43.4 % (38.0-47.0); HEMOGLOBIN 15.2 g/dL (12.6-16.3); LEFT SHIFT FLG 0 (0-99); LIPEMIA HEMOLYSIS FLAG 90 (0-99); MEAN CELL HEMOGLOBIN 31.3 pg (27.9-34.1); MEAN CELL VOLUME 89.5 fL (81.5-99.8); PLATELET CLUMPS FLAG 0 (0-99); PLATELET COUNT 193 10^3/uL (150-400); RED BLOOD CELL COUNT 4.85 10^6/uL (4.18-5.33); RED CELL DISTRIBUTION WIDTH 13.2 % (11.5-15.2)
[2017-06-06 18:52] LABS: ANION GAP 8 mEq/L (8-16); CALCIUM 9.6 mg/dL (8.5-10.4); CARBON DIOXIDE 27 mEq/l (22-31); CHLORIDE 101 mEq/L (97-110); GLOMERULAR FILTRATION RATE 60; GLUCOSE 117 mg/dL (70-100); POTASSIUM 4.3 mEq/L (3.5-5.2); SODIUM 136 mEq/L (134-144)
--- NOTE | 2017-06-06 19:40 | EDPHY ---
H & P Stated Complaint: under stress, wants to go to a safe house Source: Patient Exam Limitations: No limitations - Personal History LMP (Females 10-55): Post Menopausal Current Tetanus/Diphtheria Vaccine: Yes Current Tetanus Diphtheria and Acellular Pertussis (TDAP): Yes - Medical/Surgical History Hx Asthma: No Hx Chronic Respiratory Disease: Yes Hx Diabetes: No Hx Cardiac Disease: Yes Hx Renal Disease: No Hx Cirrhosis: No Hx Alcoholism: No Hx HIV/AIDS: No Hx Splenectomy or Spleen Trauma: No Other PMH: Bipolar, schizophrenia, COPD, HTN, [place], fibromyalgia, polyneuropathies , arthritis, Agranulocytosis - Family History Significant Family History: No pertinent family hx - Social History Smoking Status: Current every day smoker Alcohol Use: Sober Drug Use: None Time Seen by Provider: 06/06/17 19:32 HPI/ROS: CHIEF COMPLAINT: Suicidality HISTORY OF PRESENT ILLNESS: The patient is a 46-year-old female sent from the [facility] for suicidality. She has a history of schizophrenia and was recently discharged from a psychiatric facility in [place]. She went home today and found that her son had a new roommate. She felt threatened by the roommate and came to the [facility] to seek help with a safe house. After extensive search she is unable to get into a safe house because they did not feel that she was eligible. She initially denied suicidality. After being told however that she could not get into a safe house and is going to be discharged she stated that she would commit suicide if she was discharged and that she would go out to the parking lot take all of her pills. She was transferred here for security purposes and psychiatric evaluation. She has been medically cleared. REVIEW OF SYSTEMS: Constitutional: denies: chills, fever, recent illness, recent injury EENTM: denies: blurred vision, double vision, nose congestion Respiratory: denies: cough, shortness of breath Cardiac: denies: chest pain, irregular heart rate, lightheadedness, palpitations Gastrointestinal/Abdominal: denies: abdominal pain, diarrhea, nausea, vomiting, blood streaked stools Genitourinary: denies: dysuria, frequency, hematuria, pain Musculoskeletal: denies: joint pain, muscle pain Skin: denies: lesions, rash, jaundice, bruising Neurological: denies: headache, numbness, paresthesia, tingling, dizziness, weakness Hematologic/Lymphatic: denies: blood clots, easy bleeding, easy bruising Immunologic/allergic: denies: HIV/AIDS, transplant EXAM: GENERAL: Well-appearing, overweightand in no acute distress. HEAD: Atraumatic, normocephalic. EYES: Pupils equal round and reactive to light, extraocular movements intact, sclera anicteric, conjunctiva are normal. ENT: TMs normal, nares patent, oropharynx clear without exudates. Moist mucous membranes. NECK: Normal range of motion, supple without lymphadenopathy or JVD. LUNGS: Breath sounds clear to auscultation bilaterally and equal. No wheezes rales or rhonchi. HEART: Regular rate and rhythm without murmurs, rubs or gallops. ABDOMEN: Soft, nontender, normoactive bowel sounds. No guarding, no rebound. No masses appreciated. BACK: No CVA tenderness, no spinal tenderness, step-offs or deformities EXTREMITIES: Normal range of motion, no pitting or edema. No clubbing or cyanosis. NEUROLOGICAL: Cranial nerves II through XII grossly intact. Normal speech, normal gait. 5/5 strength, normal movement in all extremities, normal sensation PSYCH: Normal mood, normal affect. SKIN: Warm, dry, normal turgor, no visible rashes or lesions. (Joseluis Paulson) Constitutional: Initial Vital Signs Temperature (C) 36.8 C 06/06/17 16:37 Heart Rate 90 06/06/17 16:37 Respiratory Rate 18 06/06/17 16:37 Blood Pressure 126/87 H 06/06/17 16:37 O2 Sat (%) 94 06/06/17 16:37 O2 Delivery Mode Room Air Allergies/Adverse Reactions: carbamazepine [From Tegretol] Allergy (Verified 05/23/17 06:26) cefaclor [From Ceclor] Allergy (Verified 05/23/17 06:26) Cephalosporins Allergy (Verified 05/23/17 06:26) clozapine [From Clozaril] Allergy (Verified 05/23/17 06:26) lamotrigine Allergy (Verified 05/23/17 06:26) oxcarbazepine [From Trileptal] Allergy (Verified 05/23/17 06:26) Penicillins Allergy (Verified 05/23/17 06:26) Sulfa (Sulfonamide Antibiotics) Allergy (Verified 05/23/17 06:26) Thiazides Allergy (Verified 05/23/17 06:26) Home Medications: Medication Instructions Recorded Estropipate [Ogen 0.75 MG (*)] 0.75 mg PO DAILY #0 tab 11/02/16 Albuterol [Proventil Inhaler HFA 1 - 2 puffs IH Q4-6PRN PRN 01/26/17 (*)] Paliperidone Palmitate [Invega 117 mg SQ Q30D 01/26/17 Sustenna (RX)] Levothyroxine [Synthroid 25 mcg 25 mcg PO DAILY 05/19/17 (*)] QUEtiapine FUMARATE [Seroquel 50 50 mg PO HS 05/19/17 mg (*)] celeCOXIB [Celebrex (*)] 200 mg PO DAILY 05/19/17 Tebbetts Carbonate ER [Lithobid 300 300 mg PO BID #60 tab 05/22/17 mg (*)] Metoprolol Succinate Xr [Toprol Xl 12.5 mg PO DAILY #30 tab 05/22/17 25 mg (*)] clonazePAM [klonoPIN (*)] 1 mg PO HS #10 tab 05/22/17 traZODone [traZODONE 100MG (*)] 200 mg PO HS #10 tab 05/22/17 Nicotine [Nicoderm Cq 21 mg (*)] 16 mg TD DAILY 06/06/17 Docusate Sodium [Colace 100 MG (*)] 100 mg PO BID 06/07/17 Furosemide [Lasix 40 MG (*)] 20 mg PO DAILY 06/07/17 busPIRone [Buspar (*)] 20 mg PO BID 06/07/17 Medical Decision Making ED Course/Re-evaluation: 6:00 a.m.- Overnight, the patient was evaluated by the mental health team who recommends hospitalization, likely to [facility] where she was [facility]. [facility] is also a consideration for her. At 7:00 a.m., I anticipate the case will be signed out to the oncoming provider Dr. House pending placement. 12:45 a.m.- The patient has been accepted at [facility] by Dr. Mayorga. I have completed the EMTALA form. (Shaylee Ge) 11:15 p.m. we continue to await psychiatric evaluation. Care transferred to Dr. Ge (Joseluis Paulson) Differential Diagnosis: Partial list of the Differential diagnosis considered include but were not limited to; depression, suicidality, anxiety and although unlikely based on the history and physical exam, I also considered infection, trauma. (Joseluis Paulson) - Data Points Laboratory Results: Laboratory Results 06/06/17 18:30 06/06/17 18:30 Medications Given: Discontinued Medications Acetaminophen (Tylenol 160mg/5ml Oral Liquid) 650 mg PO EDNOW ONE Stop: 06/07/17 15:33 Last Admin: 06/07/17 15:37 Dose: Not Given Acetaminophen (Tylenol) 650 mg PO EDNOW ONE Stop: 06/07/17 15:37 Last Admin: 06/07/17 15:38 Dose: 650 mg Buspirone HCl (Buspar) 10 mg PO BID [facility] Stop: 12/04/17 08:59 Last Admin: 06/07/17 09:08 Dose: 10 mg Buspirone HCl (Buspar) 20 mg PO BID [facility] Stop: 12/04/17 08:59 Last Admin: 06/07/17 20:26 Dose: 20 mg Celecoxib (Celebrex) 200 mg PO EDNOW ONE Stop: 06/07/17 18:07 Last Admin: 06/07/17 18:40 Dose: 200 mg Clonazepam (Klonopin) 1 mg PO DAILY ONE Stop: 06/07/17 21:01 Last Admin: 06/07/17 20:27 Dose: 1 mg Docusate Sodium (Colace) 100 mg PO EDNOW ONE Stop: 06/07/17 19:31 Last Admin: 06/07/17 20:26 Dose: 100 mg Tebbetts Carbonate (Lithobid) 300 mg PO BID [facility] Stop: 12/04/17 08:59 Last Admin: 06/07/17 20:28 Dose: 300 mg Metoprolol Succinate (Toprol Xl) 12.5 mg PO EDNOW ONE Stop: 06/07/17 21:01 Last Admin: 06/07/17 20:27 Dose: 12.5 mg Nicotine (Nicoderm Cq) 21 mg TD EDNOW ONE Stop: 06/07/17 14:53 Last Admin: 06/07/17 14:56 Dose: 21 mg Trazodone HCl (Trazodone) 100 mg PO HS [facility] Stop: 12/04/17 20:59 Last Admin: 06/07/17 20:28 Dose: 100 mg Departure - Departure Disposition: Other Psych, Not [place] Clinical Impression: Suicidal ideation Bipolar disorder Qualifiers: Active/Remission status: remission status unspecified Qualified Code(s): F31.9 - Bipolar disorder, unspecified Condition: Good Instructions: Bipolar Disorder (ED) Additional Instructions: 1. Return emergency room if you have thoughts of wanting to hurt herself or anybody else. 2. We have provided you information for a safe house. Referrals: Favio Darden DO [Primary Care Provider] - As per Instructions
[2017-06-06 21:04] LABS: ETHANOL SERUM < 10 mg/dL (0-10)
[2017-06-07 06:24] VITALS: TEMP 98.6
[2017-06-07] MEDS ORDERED: busPIRone 10 MG TAB PO SCH ×2 (09:00→12:14)
[2017-06-07] MEDS: LITHIUM CARBONATE ER 300 MG TAB PO SCH ×2 (09:08→20:28)
[2017-06-07] MEDS ORDERED: FUROSEMIDE 20 MG TAB PO ONE (12:19)
[2017-06-07] MEDS ORDERED: NICOTINE 21 MG/24 HR PATCH TD ONE (14:52)
[2017-06-07] MEDS ORDERED: ACETAMINOPHEN 160 MG/5 ML UDCUP PO ONE (15:32)
[2017-06-07] MEDS ORDERED: ACETAMINOPHEN 325 MG TAB ONE (15:35)
[2017-06-07] MEDS ORDERED: ACETAMINOPHEN 325 MG TAB PO ONE (15:36)
--- NOTE | 2017-06-07 16:46 | CPEKG ---
Heart Rate: 80 RR Interval: 750 P-R Interval: 168 QRSD Interval: 102 QT Interval: 416 QTC Interval: 480 P Wallace: 70 QRS Wallace: -51 T Wave Wallace: 136 EKG Severity - ABNORMAL ECG - EKG Impression: SINUS RHYTHM EKG Impression: LEFT ANTERIOR FASCICULAR BLOCK EKG Impression: LVH WITH SECONDARY REPOLARIZATION ABNORMALITY EKG Impression: ABNORMAL T, PROBABLE ISCHEMIA, LATERAL LEADS Electronically Signed By: Rickey Lazar 07-Jun-2017 23:29:03
[2017-06-07] MEDS ORDERED: LITHIUM CARBONATE 300 MG TAB ONE (19:29)
[2017-06-07] MEDS ORDERED: DOCUSATE SODIUM 100 MG CAP PO ONE (19:30)
[2017-06-07] MEDS ORDERED: traZODone 100 MG TAB PO PRN (20:00)
[2017-06-07] MEDS: traZODone 100 MG TAB PO SCH (20:28)
[2017-06-07] MEDS ORDERED: clonazePAM 1 MG TAB PO ONE (21:00)
[2017-06-07] MEDS ORDERED: METOPROLOL SUCCINATE XR 25 MG TAB PO ONE (21:00)
[2017-06-07 22:46] VITALS: BP 118/72; PULSE 70; RESP 14; O2SAT 92
[2017-06-08] MEDS ORDERED: LEVOTHYROXINE 25 MCG TAB PO SCH (06:00)
[2017-06-08] MEDS ORDERED: ESTROPIPATE 0.75 MG TAB PO SCH (09:00)
[2017-06-08] MEDS ORDERED: QUEtiapine FUMARATE 50 MG TAB PO SCH (21:00)
== END 2017-06-08 01:03 ==
LOC: CED 16:30
DX: R45.851 Suicidal ideations (principal); F31.9 Bipolar disorder, unspecified; I10 Essential (primary) hypertension; J44.9 Chronic obstructive pulmonary disease, unspecified; I25.2 Old myocardial infarction; F17.200 Nicotine dependence, unspecified, uncomplicated
CPT/HCPCS: 80048-PO; 80305; 85025-PO; G0480

== ENCOUNTER 2017-06-15 11:32 | Emergency (ER) | payer OTHER, MEDICAID ==
--- NOTE | 2017-06-15 12:35 | EDPHY ---
H & P Stated Complaint: Lightheaded, Dizzy, bilateral leg numbness - Personal History LMP (Females 10-55): Irregular Current Tetanus/Diphtheria Vaccine: No Current Tetanus Diphtheria and Acellular Pertussis (TDAP): No - Medical/Surgical History Hx Asthma: No Hx Chronic Respiratory Disease: Yes Hx Diabetes: No Hx Cardiac Disease: Yes Hx Renal Disease: No Hx Cirrhosis: No Hx Alcoholism: No Hx HIV/AIDS: No Hx Splenectomy or Spleen Trauma: No Other PMH: Bipolar, schizophrenia, COPD, HTN, [place], fibromyalgia, polyneuropathies , arthritis, Agranulocytosis - Social History Smoking Status: Current every day smoker Time Seen by Provider: 06/15/17 12:35 Constitutional: Initial Vital Signs Temperature (C) 37.2 C 06/15/17 11:36 Heart Rate 84 06/15/17 11:36 Respiratory Rate 18 06/15/17 11:36 Blood Pressure 91/68 L 06/15/17 11:36 O2 Sat (%) 93 06/15/17 11:36 O2 Delivery Mode Room Air Allergies/Adverse Reactions: carbamazepine [From Tegretol] Allergy (Verified 05/23/17 06:26) cefaclor [From Ceclor] Allergy (Verified 05/23/17 06:26) Cephalosporins Allergy (Verified 05/23/17 06:26) clozapine [From Clozaril] Allergy (Verified 05/23/17 06:26) lamotrigine Allergy (Verified 05/23/17 06:26) oxcarbazepine [From Trileptal] Allergy (Verified 05/23/17 06:26) Penicillins Allergy (Verified 05/23/17 06:26) Sulfa (Sulfonamide Antibiotics) Allergy (Verified 05/23/17 06:26) Thiazides Allergy (Verified 05/23/17 06:26) Home Medications: Medication Instructions Recorded Estropipate [Ogen 0.75 MG (*)] 0.75 mg PO DAILY #0 tab 11/02/16 Albuterol [Proventil Inhaler HFA 1 - 2 puffs IH Q4-6PRN PRN 01/26/17 (*)] Paliperidone Palmitate [Invega 117 mg SQ Q30D 01/26/17 Sustenna (RX)] Levothyroxine [Synthroid 25 mcg 25 mcg PO DAILY 05/19/17 (*)] QUEtiapine FUMARATE [Seroquel 50 50 mg PO HS 05/19/17 mg (*)] celeCOXIB [Celebrex (*)] 200 mg PO DAILY 05/19/17 Collins Carbonate ER [Lithobid 300 300 mg PO BID #60 tab 05/22/17 mg (*)] Metoprolol Succinate Xr [Toprol Xl 12.5 mg PO DAILY #30 tab 05/22/17 25 mg (*)] traZODone [traZODONE 100MG (*)] 200 mg PO HS #10 tab 05/22/17 Docusate Sodium [Colace 100 MG (*)] 100 mg PO BID 06/07/17 Furosemide [Lasix 40 MG (*)] 20 mg PO DAILY 06/07/17 busPIRone [Buspar (*)] 20 mg PO BID 06/07/17 Meclizine HCl [Meclizine HCl 12.5 12.5 mg PO QID PRN #20 tab 06/15/17 mg (*)] Medical Decision Making ED Course/Re-evaluation: CHIEF COMPLAINT: Dizziness HISTORY OF PRESENT ILLNESS: 46-year-old female is well known to the emergency department as she has 12 visits so far this year. Often she has issues with psychiatric problems or noncompliance with medicines. Today she feels dizzy. The dizziness is exacerbated by any head movement which also causes some nausea. She denies any focal neurologic problems. She can walk. She is moving her extremities properly. She denies any weakness. She states that she has not come to the emergency department for this before but she has had dizziness for quite a long time. She denies any fevers or chills. She denies any trauma. REVIEW OF SYSTEMS: A 10 point review of systems was performed and is negative with the exception of the elements mentioned in the history of present illness. PHYSICAL EXAM: HR, BP, O2 Sat, RR. Temp noted General Appearance: Alert, well hydrated, appropriate, and non-toxic appearing. Head: Atraumatic without scalp tenderness or obvious injury Eyes: Pupils equal, round, reactive to light and accommodation, EOMI, no trauma , no injection. Ears: Clear bilaterally, no perforation, normal landmarks Nose: Atraumatic, no rhinorrhea, clear. Throat: There is no erythema or exudates, no lesions, normal tonsils, mucus membranes moist. Neck: Supple, 2+ carotid upstroke, nontender, no lymphadenopathy. Respiratory: No retractions, no distress, no wheezes, and no accessory muscle use. Lungs are clear to auscultation bilaterally. Cardiovascular: Regular rate and rhythm, no murmurs, rubs, or gallops. Bilateral carotid, radial, dorsalis pedis, and posterior tibial pulses intact. Good capillary refill all extremities. Gastrointestinal: Abdomen is soft, nontender, non-distended, no masses, no rebound, no guarding, no peritoneal signs. Musculoskeletal: Normal active ROM of all extremities, atraumatic. Neurological: Alert, appropriate, and interactive. The patient has normal DTRs and non-focal cranial nerves, motor, sensory, and cerebellar exam. Skin: No rashes, good turgor, no nodules on palpation. Past medical history: Bipolar disorder, psychiatric illnesses, prior history of myocardial infarction, medicine noncompliance Past surgical history: Noncontributory Family history: Noncontributory Social history: Single, not employed, uses tobacco, denies drug or alcohol abuse DIFFERENTIAL DIAGNOSIS: The differential diagnosis for the patient's dizziness included but was not limited to peripheral and central causes of vertigo, orthostatic causes including dehydration, cardiogenic and neurogenic causes, and blood loss. MEDICAL DECISION MAKING: This patient has a longstanding history of intermittent dizziness. Her dizziness is classically a peripheral vertigo today. She has no evidence of a central lesion or cerebellar stroke. Her dizziness is exacerbated by head movement and extinguish is at rest. She also gets nauseated with the dizziness. There was an abrupt onset to the dizziness. I have treated with meclizine and she will follow up with her primary care physician. As we are trying to discharge this patient she did made sure that we knew that she is feeling very suicidal. She presents here frequently for suicidality. She has a long psychiatric history. Screening laboratory studies have been performed this patient will get psychiatrically evaluated. (Azar House) Other Provider: Care assumed from Lacy at 1500 with psych evaluation pending. 2016: Patient had psychiatric evaluation and the recommendation of the medicaid nurse and health and safety consultant psychiatrist Dr. Menendez is that she be placed on a mental health hold and plan for inpatient hospitalization. 2030: Patient placed on a mental health hold by myself in conjunction with medicaid nurse for active suicidal ideation with a plan to overdose. 2209: Signed out to Dr. Pitt with plan for inpatient psychiatric placement. ( Leonel Rivera) 22:00 care assumed by me from Dr. Rivera pending placement. 0400 patient has been accepted to [facility] by Dr. Melendez. I have completed the EMTALA form. (Cody Pitt) - Data Points Laboratory Results: Laboratory Results 06/15/17 11:51 06/15/17 11:51 06/15/17 Unknown Collins 1.0 mEq/L mEq/L (0.6-1.2) Medications Given: Discontinued Medications Buspirone HCl (Buspar) 10 mg PO ONCE ONE Stop: 06/15/17 21:16 Last Admin: 06/15/17 21:27 Dose: 10 mg Clonazepam (Klonopin) 1 mg PO EDNOW ONE Stop: 06/15/17 20:59 Last Admin: 06/15/17 21:27 Dose: 1 mg Collins Carbonate (Lithobid) 300 mg PO ONCE ONE Stop: 06/15/17 21:16 Last Admin: 06/15/17 21:27 Dose: 300 mg Meclizine HCl (Meclizine Hcl) 12.5 mg PO EDNOW ONE Stop: 06/15/17 13:07 Last Admin: 06/15/17 13:17 Dose: 12.5 mg Quetiapine Fumarate (Seroquel) 50 mg PO EDNOW ONE Stop: 06/15/17 20:59 Last Admin: 06/15/17 21:27 Dose: 50 mg Trazodone HCl (Trazodone) 50 mg PO EDNOW ONE Stop: 06/15/17 20:58 Last Admin: 06/15/17 21:27 Dose: 50 mg Departure - Departure Disposition: Home, Routine, Self-Care Clinical Impression: Suicidal ideations Benign paroxysmal positional vertigo Qualifiers: Laterality: unspecified laterality Qualified Code(s): H81.10 - Benign paroxysmal vertigo, unspecified ear Condition: Good Instructions: Vertigo (ED), Suicide Prevention for Adults (ED) Referrals: NONE *PRIMARY CARE P,. [Primary Care Provider] - As per Instructions Prescriptions: Meclizine HCl [Meclizine HCl 12.5 mg (*)] 12.5 mg PO QID PRN #20 tab PRN Reason: Dizziness
[2017-06-15] MEDS ORDERED: MECLIZINE HCL 25 MG TAB PO ONE (13:06)
[2017-06-15 13:32] LABS: ADD DIFF? NO; ADD MORPH? NO; ADD SCAN? NO; ATYPICAL LYMPHOCYTE FLAG 10 (0-99); FRAGMENT RBC FLAG 0 (0-99); HEMATOCRIT 47.8 % (38.0-47.0); HEMOGLOBIN 16.5 g/dL (12.6-16.3); LEFT SHIFT FLG 0 (0-99); LIPEMIA HEMOLYSIS FLAG 90 (0-99); MEAN CELL HEMOGLOBIN 31.5 pg (27.9-34.1); MEAN CELL HEMOGLOBIN CONCENTR. 34.5 g/dL (32.4-36.7); MEAN CELL VOLUME 91.2 fL (81.5-99.8); PLATELET CLUMPS FLAG 10 (0-99); PLATELET COUNT 198 10^3/uL (150-400); RED BLOOD CELL COUNT 5.24 10^6/uL (4.18-5.33); RED CELL DISTRIBUTION WIDTH 13.4 % (11.5-15.2)
[2017-06-15 13:38] LABS: ALANINE AMINOTRANSFERASE 29 IU/L (9-52); ALBUMIN 3.9 g/dL (3.5-5.0); ALKALINE PHOSPHATASE 65 IU/L (38-126); ASPARTATE AMINOTRANSFERASE 27 IU/L (14-46); BILIRUBIN,TOTAL 0.8 mg/dL (0.1-1.4); CALCIUM 9.8 mg/dL (8.5-10.4); CARBON DIOXIDE 22 mEq/l (22-31); CHLORIDE 102 mEq/L (97-110); ETHANOL SERUM < 10 mg/dL (0-10); GLOMERULAR FILTRATION RATE 60; GLUCOSE 190 mg/dL (70-100); SODIUM 137 mEq/L (134-144); TOTAL PROTEIN 6.2 g/dL (6.3-8.2)
[2017-06-15 13:42] LABS: ANION GAP 13 mEq/L (8-16); POTASSIUM 4.6 mEq/L (3.5-5.2)
[2017-06-15 14:01] LABS: SALICYLATE < 1.0 mg/dL (2.0-20.0)
--- NOTE | 2017-06-15 16:45 | ASMTCMCOM ---
CM Note CM Note Notes: Patient presented to the ED via EMS for dizziness, lightheadedness. Patient was going to be discharged home to follow up with her PCP when she informed the ED RN that she was suicidal. Patient was then transferred to ED RM 21 for mental health evaluation. Patient has history of bipolar disorder and schizophrenia. Patient is very well known to this ED, this is her 12th visit this year. She was recently in the ED 06/06/17 for SI due to not feeling safe at home where her son had a new roommate; patient was ultimately placed inpatient at [place]. Patient has had some concern about her safety around her son who she just recently reconnected with, and has been provided local safe intermediate information in the past. Patient was also recently admitted twice between 05/20 - 05/24/17 for respiratory and heart failure issues. [phone] Patient has been staying at [facility] intermediate locations but was also expecting to get into [address] housing, her machine adjuster leader case trim at [place] [address] is Maryam Iglesias. Patient has also been treated inpatient at [facility] and [facility] in the past. Last ED visit [facility] Date Signed: 06/15/2017 04:44 PM Electronically Signed By:Nava Dumont RN
[2017-06-15] MEDS ORDERED: traZODone 50 MG TAB PO ONE (20:57)
[2017-06-15] MEDS ORDERED: clonazePAM 1 MG TAB PO ONE (20:58)
[2017-06-15] MEDS ORDERED: QUEtiapine FUMARATE 50 MG TAB PO ONE (20:58)
[2017-06-15] MEDS ORDERED: busPIRone 10 MG TAB PO ONE (21:15)
[2017-06-15] MEDS ORDERED: LITHIUM CARBONATE ER 300 MG TAB PO ONE (21:15)
[2017-06-16 04:48] VITALS: RESP 16
[2017-06-16 05:18] VITALS: BP 122/62; PULSE 73; TEMP 98.4; O2SAT 95
== END 2017-06-16 05:18 ==
LOC: EDUNIT#
DX: R45.851 Suicidal ideations (principal); H81.10 Benign paroxysmal vertigo, unspecified ear; F17.200 Nicotine dependence, unspecified, uncomplicated; I10 Essential (primary) hypertension; J44.9 Chronic obstructive pulmonary disease, unspecified; I25.2 Old myocardial infarction
CPT/HCPCS: 80305; G0480

== ENCOUNTER 2017-06-29 18:25 | Inpatient (IN) | payer OTHER, MEDICAID ==
[2017-06-29] MEDS ORDERED: IPRATROPIUM/ALBUTEROL 3 ML DEYVIAL IH ONE (18:51)
[2017-06-29] MEDS ORDERED: methylPREDNISolone SOD SUCC 125 MG/2 ML VIAL IVP ONE (18:51)
[2017-06-29] MEDS ORDERED: ALBUTEROL 3 ML DEYVIAL IH ONE ×4 (18:51→21:26)
--- NOTE | 2017-06-29 18:52 | EDPHY ---
H & P Time Seen by Provider: 06/29/17 18:43 HPI/ROS: CHIEF COMPLAINT: Shortness of breath HISTORY OF PRESENT ILLNESS: History of CHF and COPD and was discharged from our hospital on May 24 of this year with COPD exacerbation. She presents today with several hours of feeling more fatigued 8 and short of breath with wheezing. Symptoms moderate. No cough or fever. No chest pain. No leg swelling or leg pain. A little bit worse with exertion but not positional. REVIEW OF SYSTEMS: Eye: no change in vision ENT: no sore throat Cardiac: no chest pain or syncope Pulmonary: HPI Abdomen: no vomiting, diarrhea, abdominal pain Musculoskeletal: Chronic back pain unchanged Skin: no rash Neuro: no headache Constitutional: no fever : no urinary symptoms A comprehensive 10 point review of systems is otherwise negative aside from elements mentioned in the history of present illness. PAST MEDICAL HISTORY: Includes bipolar, COPD, CHF and hypertension, hypertrophic cardiomyopathy. Social history: Current smoker General Appearance: Alert and conversant, cooperative. Eyes: No scleral icterus. ENT, Mouth: Normal mucous membranes. Respiratory: Bilateral expiratory wheezes but no focal lung sounds, speaks in full sentences. Cardiovascular: Regular rate and rhythm. Gastrointestinal: Abdomen is soft and non tender. Neurological: Alert and oriented x3. Normally conversant. Face symmetric, normal movement and sensation in all extremities. Skin: Warm and dry, no rashes. Musculoskeletal: No peripheral edema and no joint swelling. No calf tenderness. Psychiatric: Not agitated. Emergency Department course/MDM: DuoNeb, EKG, IV steroids, chest x-ray. 2020: still a little bit wheezy, saturation 92% on room air, 2 additional nebulizer treatments. 2043: She has some "pulling "feeling in the left side of her chest, D-dimer added, refused EKG "I don't want any more of those." Has capacity to make decisions regarding her care, warned potential risks of IA disability and from missed acute coronary syndrome, still refuses. 2125: Chest discomfort was momentary and is gone now, pretest probability for pulmonary embolism is low and D-dimer test is negative. Additional nebulizer for O2 sat 88%. Patient will need to be admitted if she continues to have low oxygen saturation. 2215: Still hypoxic in the mid 80s, plan to admit for COPD exacerbation. Smoking Status: Current every day smoker Constitutional: Initial Vital Signs Temperature (C) 36.8 C 06/29/17 18:37 Heart Rate 93 06/29/17 18:37 Respiratory Rate 18 06/29/17 18:37 Blood Pressure 125/77 H 06/29/17 18:37 O2 Sat (%) 93 06/29/17 18:37 O2 Delivery Mode Room Air O2 (L/minute) 2 Allergies/Adverse Reactions: carbamazepine [From Tegretol] Allergy (Verified 06/29/17 18:40) cefaclor [From Ceclor] Allergy (Verified 06/29/17 18:40) Cephalosporins Allergy (Verified 06/29/17 18:40) clozapine [From Clozaril] Allergy (Verified 06/29/17 18:40) lamotrigine Allergy (Verified 06/29/17 18:40) oxcarbazepine [From Trileptal] Allergy (Verified 06/29/17 18:40) Penicillins Allergy (Verified 06/29/17 18:40) Sulfa (Sulfonamide Antibiotics) Allergy (Verified 06/29/17 18:40) Thiazides Allergy (Verified 06/29/17 18:40) Home Medications: Medication Instructions Recorded Estropipate [Ogen 0.75 MG (*)] 0.75 mg PO DAILY #0 tab 11/02/16 Albuterol [Proventil Inhaler HFA 1 - 2 puffs IH Q4-6PRN PRN 01/26/17 (*)] Paliperidone Palmitate [Invega 117 mg SQ Q30D 01/26/17 Sustenna (RX)] Levothyroxine [Synthroid 25 mcg 25 mcg PO DAILY 05/19/17 (*)] QUEtiapine FUMARATE [Seroquel 50 50 mg PO HS 05/19/17 mg (*)] celeCOXIB [Celebrex (*)] 200 mg PO DAILY 05/19/17 [place] Carbonate ER [Lithobid 300 300 mg PO BID #60 tab 05/22/17 mg (*)] Metoprolol Succinate Xr [Toprol Xl 12.5 mg PO DAILY #30 tab 05/22/17 25 mg (*)] traZODone [traZODONE 100MG (*)] 200 mg PO HS #10 tab 05/22/17 Docusate Sodium [Colace 100 MG (*)] 100 mg PO BID 06/07/17 Furosemide [Lasix 40 MG (*)] 20 mg PO DAILY 06/07/17 busPIRone [Buspar (*)] 20 mg PO BID 06/07/17 Meclizine HCl [Meclizine HCl 12.5 12.5 mg PO QID PRN #20 tab 06/15/17 mg (*)] predniSONE [prednisone 20mg (RX)] 60 mg PO DAILY 4 Days tab 06/29/17 Medical Decision Making - Diagnostics EKG Interpretation: 12-lead EKG interpreted by me; official reading is in trace master. My interpretation is sinus rhythm with left anterior fascicular block, LVH, rate 81. Imaging Results: Imaging Impressions Chest X-Ray 06/29/17 18:51 Impression: 1. Cardiomegaly with mild pulmonary venous hypertension. 2. Bronchial wall thickening could be related to airways disease or interstitial edema. 3. No pneumonia. Results discussed with Dr. Rivera at 7:56 pm. Differential Diagnosis: Differential diagnosis considered for shortness of breath including but not limited to pulmonary infectious process, COPD, asthma, pulmonary embolus and congestive heart failure. Consult/Admit Bed Type: [place] [id number] - Data Points Laboratory Results: Laboratory Results 06/29/17 18:47 06/29/17 18:47 06/29/17 06/29/17 06/29/17 Unknown 18:47 18:47 WBC 7.24 10^3/uL 10^3/uL (3.80-9.50) RBC 4.56 10^6/uL 10^6/uL (4.18-5.33) Hgb 14.5 g/dL g/dL (12.6-16.3) Hct 42.0 % % (38.0-47.0) MCV 92.1 fL fL (81.5-99.8) MCH 31.8 pg pg (27.9-34.1) MCHC 34.5 g/dL g/dL (32.4-36.7) RDW 13.7 % % (11.5-15.2) Plt Count 191 10^3/uL 10^3/uL (150-400) MPV 9.9 fL fL (8.7-11.7) Neut % (Auto) 74.7 % H % (39.3-74.2) Lymph % (Auto) 15.9 % % (15.0-45.0) [place] % (Auto) 7.2 % % (4.5-13.0) Eos % (Auto) 1.8 % % (0.6-7.6) Baso % (Auto) 0.3 % % (0.3-1.7) Nucleat RBC Rel Count 0.0 % % (0.0-0.2) Absolute Neuts (auto) 5.41 10^3/uL 10^3/uL (1.70-6.50) Absolute Lymphs (auto) 1.15 10^3/uL 10^3/uL (1.00-3.00) Absolute Monos (auto) 0.52 10^3/uL 10^3/uL (0.30-0.80) Absolute Eos (auto) 0.13 10^3/uL 10^3/uL (0.03-0.40) Absolute Basos (auto) 0.02 10^3/uL 10^3/uL (0.02-0.10) Absolute Nucleated RBC 0.00 10^3/uL 10^3/uL (0-0.01) Immature Gran % 0.1 % % (0.0-1.1) Immature Gran # 0.01 10^3/uL 10^3/uL (0.00-0.10) D-Dimer 0.44 ug/mLFEU ug/mLFEU (0.00-0.50) Sodium 140 mEq/L mEq/L (134-144) Potassium 4.5 mEq/L mEq/L (3.5-5.2) Chloride 107 mEq/L mEq/L (97-110) Carbon Dioxide 23 mEq/l mEq/l (22-31) Anion Gap 10 mEq/L mEq/L (8-16) BUN 14 mg/dL mg/dL (7-23) Creatinine 1.0 mg/dL mg/dL (0.6-1.0) Estimated GFR 60 Glucose 139 mg/dL H mg/dL (70-100) Calcium 9.2 mg/dL mg/dL (8.5-10.4) Medications Given: Discontinued Medications Albuterol (Proventil Neb) 3 ml IH EDNOW ONE Stop: 06/29/17 18:52 Last Admin: 06/29/17 19:58 Dose: 3 ml Albuterol (Proventil Neb) 3 ml IH EDNOW ONE Stop: 06/29/17 20:20 Last Admin: 06/29/17 20:46 Dose: 3 ml Albuterol (Proventil Neb) 3 ml IH EDNOW ONE Stop: 06/29/17 20:20 Last Admin: 06/29/17 20:46 Dose: 3 ml Albuterol (Proventil Neb) 3 ml IH EDNOW ONE Stop: 06/29/17 21:27 Last Admin: 06/29/17 21:51 Dose: 3 ml Albuterol Sulfate (Proventil Inh Prepack) 1 mdi TAKEHOME EDNOW ONE Stop: 06/29/17 20:03 Last Admin: 06/29/17 20:47 Dose: 1 mdi Albuterol/Ipratropium (Duoneb) 3 ml IH EDNOW ONE Stop: 06/29/17 18:52 Last Admin: 06/29/17 19:58 Dose: 3 ml Methylprednisolone Sodium Succinate (Solu-Medrol) 125 mg IVP EDNOW ONE Stop: 06/29/17 18:52 Last Admin: 06/29/17 19:58 Dose: 125 mg Departure - Departure Disposition: [facility] In[facility] Acute Clinical Impression: Chronic obstructive pulmonary disease with acute exacerbation Condition: Good Instructions: COPD (Chronic Obstructive Pulmonary Disease) (ED) Referrals: [facility],. [Clinic] - As per Instructions Prescriptions: predniSONE [prednisone 20mg (RX)] 60 mg PO DAILY 4 Days tab
[2017-06-29 18:58] LABS: % IMMATURE GRANULYOCYTES 0.1 % (0.0-1.1); ABSOLUTE IMMATURE GRANULOCYTES 0.01 10^3/uL (0.00-0.10); ADD DIFF? NO; ADD MORPH? NO; ADD SCAN? NO; ATYPICAL LYMPHOCYTE FLAG 0 (0-99); FRAGMENT RBC FLAG 0 (0-99); HEMOGLOBIN 14.5 g/dL (12.6-16.3); LEFT SHIFT FLG 0 (0-99); LIPEMIA HEMOLYSIS FLAG 90 (0-99); MEAN CELL HEMOGLOBIN 31.8 pg (27.9-34.1); MEAN CELL HEMOGLOBIN CONCENTR. 34.5 g/dL (32.4-36.7); MEAN CELL VOLUME 92.1 fL (81.5-99.8); MEAN PLATELET VOLUME 9.9 fL (8.7-11.7); PLATELET CLUMPS FLAG 10 (0-99); PLATELET COUNT 191 10^3/uL (150-400); RED BLOOD CELL COUNT 4.56 10^6/uL (4.18-5.33); RED CELL DISTRIBUTION WIDTH 13.7 % (11.5-15.2)
[2017-06-29 19:09] LABS: ANION GAP 10 mEq/L (8-16); CALCIUM 9.2 mg/dL (8.5-10.4); CARBON DIOXIDE 23 mEq/l (22-31); CHLORIDE 107 mEq/L (97-110); GLOMERULAR FILTRATION RATE 60; GLUCOSE 139 mg/dL (70-100); POTASSIUM 4.5 mEq/L (3.5-5.2); SODIUM 140 mEq/L (134-144)
--- NOTE | 2017-06-29 19:40 | CPEKG ---
Heart Rate: 81 RR Interval: 741 P-R Interval: 172 QRSD Interval: 102 QT Interval: 424 QTC Interval: 493 P Stover: 71 QRS Stover: -46 T Wave Stover: 135 EKG Severity - ABNORMAL ECG - EKG Impression: SINUS RHYTHM EKG Impression: LEFT ANTERIOR FASCICULAR BLOCK EKG Impression: LVH WITH SECONDARY REPOLARIZATION ABNORMALITY EKG Impression: ABNORMAL T, PROBABLE ISCHEMIA, LATERAL LEADS EKG Impression: BORDERLINE PROLONGED QT INTERVAL Electronically Signed By: Leonel Rivera 29-Jun-2017 19:49:06
[2017-06-29] MEDS ORDERED: ALBUTEROL INH PREPACK MDI TAKEHOME ONE (20:02)
[2017-06-29] MEDS ORDERED: ONDANSETRON 4 MG/2 ML VIAL IVP PRN (22:20)
[2017-06-29] MEDS ORDERED: ONDANSETRON DISINTEGRATING 4 MG TAB PO PRN (22:20)
[2017-06-29] MEDS ORDERED: ACETAMINOPHEN 325 MG TAB PO PRN (22:20)
[2017-06-29] MEDS ORDERED: AZITHROMYCIN 250 MG TAB PO ONE (22:22)
--- NOTE | 2017-06-30 00:03 | PDGENHP ---
History and Physical - Chief Complaint Shortness of breath - History of Present Illness 46 yo F w/ asthma, ?COPD, obesity, and BPD presents w/ shortness of breath. Patient describes chronic wheezing and uses her albuterol inhaler several times daily at baseline. She noticed worsened wheezing over the last few days and eventually severe SOB starting on the day of admission. Patient denies recent illness or URI symptoms. She continues to smoke cigarettes, currently smoking about 3 cigarettes per day. She has smoked most of her adult life and used to smoke 1 pack per day. She has had a lot of personal stressors lately as well as she was recently kicked out of her section 8 housing. At the time of my evaluation she is feeling mildly improved after breathing treatments and steroids. History Information - Allergies/Home Medication List Allergies/Adverse Reactions: carbamazepine [From Tegretol] Allergy (Verified 06/29/17 18:40) cefaclor [From Ceclor] Allergy (Verified 06/29/17 18:40) Cephalosporins Allergy (Verified 06/29/17 18:40) clozapine [From Clozaril] Allergy (Verified 06/29/17 18:40) lamotrigine Allergy (Verified 06/29/17 18:40) oxcarbazepine [From Trileptal] Allergy (Verified 06/29/17 18:40) Penicillins Allergy (Verified 06/29/17 18:40) Sulfa (Sulfonamide Antibiotics) Allergy (Verified 06/29/17 18:40) Thiazides Allergy (Verified 06/29/17 18:40) Home Medications: Albuterol [Proventil Inhaler HFA (*)] 1 - 2 puffs IH Q4-6PRN PRN 01/26/17 [Last Taken 06/06/17] Paliperidone Palmitate [Invega Sustenna (RX)] 117 mg SQ Q30D 01/26/17 [Last Taken 05/22/17] Levothyroxine [Synthroid 25 mcg (*)] 25 mcg PO DAILY 05/19/17 [Last Taken ] QUEtiapine FUMARATE [Seroquel 50 mg (*)] 50 mg PO HS 05/19/17 [Last Taken ] celeCOXIB [Celebrex (*)] 200 mg PO DAILY 05/19/17 [Last Taken 06/05/17] Docusate Sodium [Colace 100 MG (*)] 100 mg PO BID 06/07/17 [Last Taken 06/05/17] Furosemide [Lasix 40 MG (*)] 20 mg PO DAILY 06/07/17 [Last Taken 06/05/17] busPIRone [Buspar (*)] 20 mg PO BID 06/07/17 [Last Taken 06/07/17 09:00] I have personally reviewed and updated: family history, medical history - Past Medical History CHF, COPD Additional medical history: Bipolar disorder. HOCM - Family History Positive for: cancer - Social History Smoking Status: Current every day smoker Additional social history: Homeless Review of Systems Review of Systems: ROS: 10pt was reviewed & negative except for what was stated in HPI & below Physical Exam Physical Exam: Temp Pulse Resp BP Pulse Ox 36.7 C 86 18 102/62 96 06/29/17 23:37 06/29/17 23:37 06/29/17 23:37 06/29/17 23:37 06/29/17 23:37 Constitutional: obese, uncomfortable Eyes: PERRL, EOMI Ears, Nose, Mouth, Throat: moist mucous membranes, no oral mucosal ulcers Cardiovascular: regular rate and rhythym, other (Distant heart sounds), No edema Respiratory: no respiratory distress, expiratory wheeze (Mild, diffuse) Gastrointestinal: normoactive bowel sounds, soft, non-tender abdomen Skin: warm, normal color Neurologic: AAOx3, CN II-XII Intact Psychiatric: interacting appropriately, not anxious Lab Data & Imaging Review 06/29/17 18:47 06/29/17 18:47 WBC 7.24 10^3/uL (3.80-9.50) 06/29/17 18:47 RBC 4.56 10^6/uL (4.18-5.33) 06/29/17 18:47 Hgb 14.5 g/dL (12.6-16.3) 06/29/17 18:47 Hct 42.0 % (38.0-47.0) 06/29/17 18:47 MCV 92.1 fL (81.5-99.8) 06/29/17 18:47 MCH 31.8 pg (27.9-34.1) 06/29/17 18:47 MCHC 34.5 g/dL (32.4-36.7) 06/29/17 18:47 RDW 13.7 % (11.5-15.2) 06/29/17 18:47 Plt Count 191 10^3/uL (150-400) 06/29/17 18:47 MPV 9.9 fL (8.7-11.7) 06/29/17 18:47 Neut % (Auto) 74.7 % (39.3-74.2) H 06/29/17 18:47 Lymph % (Auto) 15.9 % (15.0-45.0) 06/29/17 18:47 [place] % (Auto) 7.2 % (4.5-13.0) 06/29/17 18:47 Eos % (Auto) 1.8 % (0.6-7.6) 06/29/17 18:47 Baso % (Auto) 0.3 % (0.3-1.7) 06/29/17 18:47 Nucleat RBC Rel Count 0.0 % (0.0-0.2) 06/29/17 18:47 Absolute Neuts (auto) 5.41 10^3/uL (1.70-6.50) 06/29/17 18:47 Absolute Lymphs (auto) 1.15 10^3/uL (1.00-3.00) 06/29/17 18:47 Absolute Monos (auto) 0.52 10^3/uL (0.30-0.80) 06/29/17 18:47 Absolute Eos (auto) 0.13 10^3/uL (0.03-0.40) 06/29/17 18:47 Absolute Basos (auto) 0.02 10^3/uL (0.02-0.10) 06/29/17 18:47 Absolute Nucleated RBC 0.00 10^3/uL (0-0.01) 06/29/17 18:47 Immature Gran % 0.1 % (0.0-1.1) 06/29/17 18:47 Immature Gran # 0.01 10^3/uL (0.00-0.10) 06/29/17 18:47 D-Dimer 0.44 ug/mLFEU (0.00-0.50) 06/29/17 Unknown Sodium 140 mEq/L (134-144) 06/29/17 18:47 Potassium 4.5 mEq/L (3.5-5.2) 06/29/17 18:47 Chloride 107 mEq/L (97-110) 06/29/17 18:47 Carbon Dioxide 23 mEq/l (22-31) 06/29/17 18:47 Anion Gap 10 mEq/L (8-16) 06/29/17 18:47 BUN 14 mg/dL (7-23) 06/29/17 18:47 Creatinine 1.0 mg/dL (0.6-1.0) 06/29/17 18:47 Estimated GFR 60 06/29/17 18:47 Glucose 139 mg/dL (70-100) H 06/29/17 18:47 Calcium 9.2 mg/dL (8.5-10.4) 06/29/17 18:47 Visualized and Interpreted Chest x-ray results: Yes Chest X-Ray results: no infiltrate, other (Bronchial wall thickening) Visualized and Interpreted EKG results: Yes EKG Interpretation: Positive for: normal sinsus rhythm, other (LAFB) Assessment & Plan Assessment: 46 yo F w/ asthma, ?COPD, BPD presents with acute exacerbation of respiratory disease. Plan: 1. Asthma, ?COPD with acute exacerbation - Patient reports a history of asthma since childhood. She has a several decade smoking history so may have COPD as well but this has not been formally diagnosed. It seems that she has poor control at baseline using albuterol multiple times daily with no additional controller medication use. The trigger for this exacerbation is unclear, but I suspect it is related to poor control chronically with the addition of continued smoking and significant social stressors/unstable housing. D-dimer negative. - Duonebs scheduled q6h - Azithromycin, prednisone x5 days - Would likely benefit from additional controller medication 2. AHRF - Mild and likely related to above. Patient states she is usually told that she is on the borderline for needing O2 at baseline. - Monitor O2, wean as able 3. BPD - On multiple medications as outpatient, needs these reconciled. Diet - Regular Code - Full Ppx - LMWH Dispo - Admit to observation status
[2017-06-30] MEDS ORDERED: AZITHROMYCIN 250 MG TAB PO ONE ×2 (00:38→00:39)
[2017-06-30 04:13] LABS: % IMMATURE GRANULYOCYTES 0.4 % (0.0-1.1); ABSOLUTE IMMATURE GRANULOCYTES 0.03 10^3/uL (0.00-0.10); ADD DIFF? NO; ADD MORPH? NO; ADD SCAN? NO; ATYPICAL LYMPHOCYTE FLAG 10 (0-99); FRAGMENT RBC FLAG 0 (0-99); HEMATOCRIT 42.6 % (38.0-47.0); LEFT SHIFT FLG 0 (0-99); LIPEMIA HEMOLYSIS FLAG 80 (0-99); MEAN CELL HEMOGLOBIN 30.4 pg (27.9-34.1); MEAN CELL HEMOGLOBIN CONCENTR. 32.9 g/dL (32.4-36.7); MEAN CELL VOLUME 92.6 fL (81.5-99.8); MEAN PLATELET VOLUME 10.2 fL (8.7-11.7); PLATELET CLUMPS FLAG 0 (0-99); PLATELET COUNT 199 10^3/uL (150-400); RED CELL DISTRIBUTION WIDTH 13.6 % (11.5-15.2)
[2017-06-30 04:30] LABS: ANION GAP 10 mEq/L (8-16); CALCIUM 9.4 mg/dL (8.5-10.4); CARBON DIOXIDE 22 mEq/l (22-31); CHLORIDE 109 mEq/L (97-110); CREATININE 0.8 mg/dL (0.6-1.0); GLOMERULAR FILTRATION RATE > 60; GLUCOSE 220 mg/dL (70-100); POTASSIUM 4.6 mEq/L (3.5-5.2); SODIUM 141 mEq/L (134-144)
[2017-06-30] MEDS: IPRATROPIUM/ALBUTEROL 3 ML DEYVIAL IH SCH ×4 (05:55→20:18)
[2017-06-30] MEDS: ALBUTEROL 3 ML DEYVIAL IH PRN (06:38)
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
[2017-06-30] MEDS: AZITHROMYCIN 250 MG TAB PO SCH (10:09)
[2017-06-30] MEDS: predniSONE 20 MG TAB PO SCH (10:09)
[2017-06-30] MEDS: ENOXAPARIN 40 MG/0.4 ML SYR SC SCH ×2 (10:10→10:11)
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
[2017-06-30] MEDS: METOPROLOL SUCCINATE XR 25 MG TAB PO SCH (13:02)
[2017-06-30] MEDS: busPIRone 10 MG TAB PO SCH ×3 (13:03→21:20)
[2017-06-30] MEDS: ESTROPIPATE 0.75 MG TAB PO SCH (13:05)
[2017-06-30] MEDS: LITHIUM CARBONATE ER 300 MG TAB PO SCH ×2 (13:07→21:20)
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
[2017-06-30] MEDS: NICOTINE 7 MG/24 HR PATCH TD SCH (16:15)
[2017-06-30] MEDS: traZODone 100 MG TAB PO SCH (21:20)
[2017-06-30] MEDS: QUEtiapine FUMARATE 50 MG TAB PO SCH (21:21)
[2017-07-01] MEDS: IPRATROPIUM/ALBUTEROL 3 ML DEYVIAL IH SCH ×4 (05:49→19:09)
[2017-07-01] MEDS: LEVOTHYROXINE 25 MCG TAB PO SCH (09:14)
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
[2017-07-01] MEDS: LITHIUM CARBONATE ER 300 MG TAB PO SCH ×2 (09:39→21:26)
[2017-07-01] MEDS: busPIRone 10 MG TAB PO SCH ×3 (09:39→21:26)
[2017-07-01] MEDS: predniSONE 20 MG TAB PO SCH (09:40)
[2017-07-01] MEDS: FUROSEMIDE 20 MG TAB PO SCH (09:40)
[2017-07-01] MEDS: AZITHROMYCIN 250 MG TAB PO SCH (09:40)
[2017-07-01] MEDS: ESTROPIPATE 0.75 MG TAB PO SCH (09:40)
[2017-07-01] MEDS: ENOXAPARIN 40 MG/0.4 ML SYR SC SCH (09:42)
[2017-07-01] MEDS: METOPROLOL SUCCINATE XR 25 MG TAB PO SCH (09:48)
[2017-07-01] MEDS: NICOTINE 7 MG/24 HR PATCH TD SCH (10:10)
[2017-07-01 19:27] LABS: ANION GAP 8 mEq/L (8-16); CALCIUM 9.7 mg/dL (8.5-10.4); CARBON DIOXIDE 27 mEq/l (22-31); CHLORIDE 102 mEq/L (97-110); CREATININE 0.9 mg/dL (0.6-1.0); GLOMERULAR FILTRATION RATE > 60; GLUCOSE 218 mg/dL (70-100); SODIUM 137 mEq/L (134-144)
[2017-07-01] MEDS: traZODone 100 MG TAB PO SCH (21:26)
[2017-07-01] MEDS: QUEtiapine FUMARATE 50 MG TAB PO SCH (21:27)
[2017-07-02] MEDS: IPRATROPIUM/ALBUTEROL 3 ML DEYVIAL IH SCH ×4 (04:15→20:23)
[2017-07-02] MEDS: LITHIUM CARBONATE ER 300 MG TAB PO SCH ×2 (09:16→20:45)
[2017-07-02] MEDS: LEVOTHYROXINE 25 MCG TAB PO SCH (09:17)
[2017-07-02] MEDS: busPIRone 10 MG TAB PO SCH ×3 (09:17→20:40)
[2017-07-02] MEDS: AZITHROMYCIN 250 MG TAB PO SCH (09:19)
[2017-07-02] MEDS: predniSONE 20 MG TAB PO SCH (09:20)
[2017-07-02] MEDS: ESTROPIPATE 0.75 MG TAB PO SCH (09:21)
[2017-07-02] MEDS: FUROSEMIDE 20 MG TAB PO SCH (09:22)
[2017-07-02] MEDS: METOPROLOL SUCCINATE XR 25 MG TAB PO SCH (09:23)
[2017-07-02] MEDS: ENOXAPARIN 40 MG/0.4 ML SYR SC SCH (09:41)
[2017-07-02] MEDS: ALBUTEROL 3 ML DEYVIAL IH PRN (09:59)
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
[2017-07-02] MEDS: NICOTINE 7 MG/24 HR PATCH TD SCH (14:09)
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
[2017-07-02] MEDS: QUEtiapine FUMARATE 50 MG TAB PO SCH (20:40)
[2017-07-02] MEDS: traZODone 100 MG TAB PO SCH (20:46)
[2017-07-03] MEDS: IPRATROPIUM/ALBUTEROL 3 ML DEYVIAL IH SCH ×2 (04:56→13:30)
[2017-07-03] MEDS: LEVOTHYROXINE 25 MCG TAB PO SCH (05:41)
[2017-07-03] MEDS: ESTROPIPATE 0.75 MG TAB PO SCH (09:17)
[2017-07-03] MEDS: AZITHROMYCIN 250 MG TAB PO SCH (09:17)
[2017-07-03] MEDS: ENOXAPARIN 40 MG/0.4 ML SYR SC SCH ×2 (09:18→09:25)
[2017-07-03] MEDS: FUROSEMIDE 20 MG TAB PO SCH (09:18)
[2017-07-03] MEDS: METOPROLOL SUCCINATE XR 25 MG TAB PO SCH (09:18)
[2017-07-03] MEDS: LITHIUM CARBONATE ER 300 MG TAB PO SCH (09:18)
[2017-07-03] MEDS: busPIRone 10 MG TAB PO SCH ×2 (09:18→14:11)
[2017-07-03] MEDS: predniSONE 20 MG TAB PO SCH (10:38)
[2017-07-03] MEDS: ALBUTEROL 3 ML DEYVIAL IH PRN (10:40)
--- NOTE | 2017-07-03 11:04 | PDIAF ---
- Diagnosis Diagnosis: Asthma, Hypoxia Code Status: Full Code - Medication Management Discharge Medications: Medications to Continue on Transfer Estropipate [Ogen 0.75 MG (*)] 0.75 mg PO DAILY #0 tab 11/02/16 [Last Taken ] Albuterol [Proventil Inhaler HFA (*)] 1 - 2 puffs IH Q4-6PRN PRN 01/26/17 [Last Taken 06/29/17] Levothyroxine [Synthroid 25 mcg (*)] 25 mcg PO DAILY 05/19/17 [Last Taken ] QUEtiapine FUMARATE [Seroquel 50 mg (*)] 50 mg PO HS 05/19/17 [Last Taken ] celeCOXIB [Celebrex (*)] 200 mg PO DAILY 05/19/17 [Last Taken 06/05/17] [place] Carbonate ER [Lithobid 300 mg (*)] 300 mg PO BID #60 tab 05/22/17 [Last Taken 06/29/17 09:00] Metoprolol Succinate Xr [Toprol Xl 25 mg (*)] 12.5 mg PO DAILY #30 tab 05/22/17 [Last Taken 06/29/17] traZODone [traZODONE 100MG (*)] 200 mg PO HS #10 tab 05/22/17 [Last Taken ] busPIRone [Buspar (*)] 20 mg PO BID 06/07/17 [Last Taken 06/29/17 09:00] Furosemide [Lasix 20 MG (*)] 20 mg PO DAILY 06/30/17 [Last Taken 06/29/17] Ibuprofen [Motrin (*)] 200 mg PO DAILY 06/30/17 [Last Taken 06/29/17] busPIRone [Buspar (*)] 10 mg PO DAILY@13 06/30/17 [Last Taken 06/28/17] Discharge Medications: Refer to the Discharge Home Medication list for PRN reason. - Orders Services needed: Home Care, Registered Nurse, Master Used Building Materials Yard Worker Home Care Face to Face: I certify that this patient was under my care and that I had the required [id number]-[id number] encounter meeting the encounter requirements on the discharge day. My findings support the fact that the patient is homebound as defined in Home Care Face to Face Continued: [facility] Chapter 7 Medicare Benefits Manual 30.1.1 , The condition of the patient is such that there exists a normal inability to leave home and consequently, leaving home would require a considerable and taxing effort. Diet Recommendation: sodium restricted Diet Texture: Regular Texture Diet - Follow Up Care Current Providers and Referrals: [facility],. [Clinic] - As per Instructions
[2017-07-03 12:23] VITALS: BP 116/85; PULSE 84; RESP 18; TEMP 98; O2SAT 97
[2017-07-03] MEDS: NICOTINE 7 MG/24 HR PATCH TD SCH (13:53)
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
== END 2017-07-03 16:01 | disposition home health service (06) | DRG 202 ==
LOC: EDUNIT# → EEVIPCON 22:20 → F2W 06-30 00:53 → OBSVTOIN 06-30 11:20
PROVIDERS: ADMIT Student in an Organized Health Care Education/Training Program; ATTEND Internal Medicine
DX: J45.901 Unspecified asthma with (acute) exacerbation (principal); J96.01 Acute respiratory failure with hypoxia; J44.9 Chronic obstructive pulmonary disease, unspecified; F17.210 Nicotine dependence, cigarettes, uncomplicated; F31.9 Bipolar disorder, unspecified; I42.1 Obstructive hypertrophic cardiomyopathy; I50.9 Heart failure, unspecified; E03.9 Hypothyroidism, unspecified; Z62.820 Parent-biological child conflict
CPT/HCPCS: 96374; G0378; J1650; J2930